=== PATIENT | female | born 1935 | race Caucasian/White ===

== ENCOUNTER 2021-01-23 12:44 | Inpatient (IN) | payer MEDICARE, OTHER, SELFPAY ==
[2021-01-23] VITALS (10 sets, daily range): BP systolic 126–156; BP diastolic 60–91; PULSE 84–102; RESP 18–29; TEMP 36.5–37; O2SAT 94–99; BMI 22.3
--- NOTE | ~2021-01-23 | XR_ITS ---
XR chest 1V portable 01/23/2021 13:44 Indication: Chest pain. Status post ground level fall. Procedure: AP portable chest Comparison: No prior studies for comparison. Findings: Status post median sternotomy for CABG. Borderline heart size. Mild interstitial edema. Sma ll pleural effusions, right greater than left. Impression: 1: Borderline heart size with mild interstitial edema. 2: Small pleural effusions, right greater than left. Reviewed, dictated and finalized at location A. Impression: 1: Borderline heart size with mild interstitial edema. 2: Small pleural effusions, right greater than left.
--- NOTE | ~2021-01-23 | NM_ITS ---
NM pulmonary perfusion DATE: 01/23/2021 19:47 INDICATION: Generalized chest pain TECHNIQUE: 8 standard projections were obtained after intravenous injection of 3.3 mCi 99m technetium MAA. The technologist notes that the patient was unable to raise the left arm of the way. COMPARISON: 01/23/2021 portable AP chest FINDINGS: There is displacement of activity by mild bilateral pleural effusions. No lobar or segmenta l perfusion abnormalities are detected. IMPRESSION: Low probability of pulmonary embolism Reviewed, dictated and finalized at Location A. Reviewed, dictated and finalized at location A.
--- NOTE | ~2021-01-23 | XR_ITS ---
XR ankle LT min 3V 01/23/2021 13:44 Indication: Left ankle pain and swelling Procedure: 4 views left ankle Comparison: No prior studies for comparison. Findings: No fracture or traumatic malalignment. There is mild diffuse soft tissue swelling. There is corticated ossific density at the medial malleolus. Talar dome is normal. Osteopenia. Impression: 1: No acute fracture. 2: Moderate diffuse soft tissue swelling. Reviewed, dictated and finalized at location A. Impression: 1: No acute fracture. 2: Moderate diffuse soft tissue swelling.
--- NOTE | ~2021-01-23 | XR_ITS ---
XR shoulder LT min 2V DATE: 01/23/2021 18:33 INDICATION: Left shoulder pain following a fall TECHNIQUE: 4 views COMPARISON: None FINDINGS: Diffuse osteopenia. There is severe joint space narrowing and hypertrophic spurring at the glenohumeral joint consistent with severe osteoarthritis. There is degenerative change at the left acromioclavicular joint including joint space narrowing. No fracture, dislocation, periosteal reaction or bone destruction is detected. Status post sternotomy. There is extensive thoracic aortic calcification. IMPRESSION: Osteopenia Severe osteoarthritic change at the left glenohumeral joint Degenerative change at the left acromioclavicular joint No fracture or dislocation Reviewed, dictated and finalized at location A.
--- NOTE | ~2021-01-23 | US_ITS ---
EXAMINATION: US venous doppler LE EXAM DATE: 01/25/2021 14:09 INDICATION: Bilateral leg edema. TECHNIQUE: Multiple grayscale, color flow and Doppler images of the lower extremity deep venous syste ms bilaterally were obtained and reviewed. There is no prior study for comparison. FINDINGS: Right side: The right common femoral, femoral and profunda veins demonstrate normal color flow, respi ratory variation, augmentation and compressibility. Compressibility, color flow confirmed within the right popliteal, posterior tibial, peroneal, and greater saphenous veins. Left side: The left common femoral, femoral and profunda veins demonstrate normal color flow, respira tory variation, augmentation and compressibility. Compressibility, color flow confirmed within the l eft popliteal, posterior tibial, peroneal, and greater saphenous veins. IMPRESSION: 1. No lower extremity deep venous thrombosis bilaterally. Reviewed, dictated and finalized at location B.
--- NOTE | ~2021-01-23 | XR_ITS ---
EXAMINATION: XR knee LT 3V EXAM DATE: 01/23/2021 16:01 INDICATION: Initial encounter following injury, with pain of the left knee. TECHNIQUE: Three projections of the left knee. There is no prior study for comparison. FINDINGS: No evidence osteochondral defect or joint body in the left knee joint. There are no acute fractures or dislocations identified. There is no subcutaneous gas. No joint effusion. There is mo derate scattered arteriosclerotic disease. Large amount of swelling anterior to the patella and the p atellar tendon. There is severe medial tibiofemoral compartment primary osteoarthritis. There are no radiopaque foreign bodies. IMPRESSION: 1. XR knee LT 3V exam without acute osseous findings. 2. Anterior soft tissue swelling. 3. Moderate to severe osteoarthritis. Reviewed, dictated and finalized at location B.
--- NOTE | ~2021-01-23 | CT_ITS ---
EXAMINATION: CT brain wo con, CT cervical spine wo con EXAM DATE: 01/23/2021 14:13 INDICATION: Fall, head injury. TECHNIQUE: Spiral CT of the head was performed without contrast. Axial, coronal and sagittal images were reviewed. Spiral CT of the cervical spine was performed without contrast. Axial images were rev iewed. Coronal and sagittal reformatted images were also reviewed. The dose-length product (DLP) fo r this examination was 605.33 (accession [id number]), 219.73 (accession [id number]) mGy-cm. The exposure was tailored according to patient size, and iterative reconstruction (ASIR) was used as additional dose reduction technique. There is no prior study for comparison. FINDINGS: HEAD CT: There is no acute intraparenchymal hemorrhage. No evidence of intraparenchymal brain mass l esion. No evidence of acute infarction. There is mild periventricular and subcortical hypodensity, n onspecific but probably related to small vessel ischemic disease. There is moderate prominence of t he sulci and ventricles related to cerebral atrophy. There is no mass effect or midline shift. The re is no obstructive hydrocephalus suspected. There are no extra-axial collections. There are no ac [place] calvarial fractures. Patient has had bilateral ocular lens surgery. Left frontal scalp swelling . Hyperostosis frontalis. The visualized sinuses and mastoid air cells are well aerated. CERVICAL CT: There is no evidence of acute cervical fracture. The odontoid process is intact. Pre- dens space is normal. Prevertebral soft tissue is normal. There are no soft tissue abnormalities id entified. There is no disc space widening or traumatic vertebral body subluxation suspected. Severe cervical spondylosis. Severe right carotid bulb arterial sclerosis. Bilateral pleural effusions, rig ht greater than left A detailed level by level evaluation of spondylosis can be added as addendum if requested. IMPRESSION: 1. No acute intracranial findings or cervical fracture. 2. Left frontal scalp swelling. 3. Advanced cervical spondylosis. 4. Senescent intracranial changes. 5. Severe right carotid arterial sclerosis. 6. Sizable right pleural effusion. Reviewed, dictated and finalized at location B. IMPRESSION: 1. No acute intracranial findings or cervical fracture. 2. Left frontal scalp swelling. 3. Advanced cervical spondylosis. 4. Senescent intracranial changes. 5. Severe right carotid arterial sclerosis. 6. Sizable right pleural effusion.
--- NOTE | ~2021-01-23 | US_ITS ---
EXAMINATION: US renal BI EXAM DATE: 01/24/2021 14:20 INDICATION: Renal insufficiency. TECHNIQUE: Multiple grayscale and Doppler images of the kidneys were obtained (by a technologist who performed the scan) and subsequently reviewed. There is no prior study for comparison. FINDINGS: Right kidney: There is normal contour and echogenicity. It measures 10.0 x 4.7 x 4.9 centimeters. Th ere are 2 renal cyst measuring about 2 cm. There is no hydronephrosis. Left kidney: There is normal contour and echogenicity. It measures 9.9 x 3.7 x 4.7 centimeters. The re are no focal renal lesions identified. There is no hydronephrosis. Bladder unremarkable. IMPRESSION: 1. Right renal cysts. 2. No hydronephrosis. Reviewed, dictated and finalized at location B.
--- NOTE | 2021-01-23 13:10 | ECG_ITS ---
Measurements Intervals [place] Rate: 86 P: [place]: 0 QRS: -15 QRSD: 89 T: 116 QT: 329 QTc: 395 Interpretive Statements ATRIAL FIBRILLATION VOLTAGE CRITERIA FOR LVH BORDERLINE R WAVE PROGRESSION, ANTERIOR LEADS BORDERLINE T WAVE ABNORMALITY- HIGH LATERAL LEADS BASELINE ARTIFACT- I, II, III, AVR, AVL ABNORMAL ECG Electronically Signed On 01-23-2021 14:57:45 CDT by Simon Clarke D.O.
[2021-01-23 13:27] LABS: Basophils Absolute Auto 0.1 K/mm3 (0.0-0.1); Basophils Percent Auto 0.4 % (0.2-1.2); Eosinophils Absolute Auto 0.1 K/mm3 (0-0.3); Eosinophils Percent Auto 0.5 % (0-4.4); Hematocrit 38.1 % (37.0-47.0); Hemoglobin 11.6 g/dL (12.0-15.0); Immature Granulocyte Absolute 0.13 K/mm3 (0.00-0.031); Immature Granulocyte Percent A 0.9 % (0-0.5); Lymphocytes Absolute Auto 0.48 K/mm3 (0.9-3.2); Lymphocytes Percent Auto 3.2 % (18.3-44.2); Mean Corpuscular HGB Conc 30.4 g/dl (32-36); Mean Corpuscular Hemoglobin 26.9 pg (26-34); Mean Corpuscular Volume 88.4 fl (80-100); Mean Platelet Volume 10.3 fl (7.4-10.4); Monocytes Absolute Auto 0.7 K/mm3 (0.1-0.6); Monocytes Percent Auto 4.6 % (2.6-8.5); Neutrophils Absolute Auto 13.6 K/mm3 (1.3-6.7); Neutrophils Percent Auto 90.4 % (45.5-73.1); Platelet Count Result 320 k/mm3 (150-375); Red Blood Count 4.31 M/mm3 (4.2-5.4); Red Cell Distribution Width 14.2 % (11.5-14.5); White Blood Count 15.1 K/mm3 (4.5-10.0)
[2021-01-23 13:35] LABS: Platelet Estimate Adequate (Adequate)
[2021-01-23 13:36] LABS: Anion Gap 6 mmol/L (8-16); Blood Urea Nitrogen 22 mg/dL (7-17); Calcium 8.5 mg/dL (8.4-10.2); Carbon Dioxide 24 mmol/L (22-30); Chloride 106 mmol/L (98-107); Estimated CRCL calculation 18 ml/min; Estimated Glomerular Filt Rate 27; Glucose 117 mg/dL (65-105); INR 1.2; Potassium 4.8 mmol/L (3.4-5.0); Prothrombin Time 15.9 Seconds (11.1-14.7); Sodium 136 mmol/L (137-145)
[2021-01-23 13:37] LABS: Burr Cells 1+ (NORMAL); Partial Thromboplastin Time 22.8 SECONDS (22.3-36.8); Poikilocytosis 1+ (NORMAL)
[2021-01-23] MEDS: SODIUM CHLORIDE 0.9% IV 500 ML 999 ML IV CONT (14:28)
--- NOTE | 2021-01-23 14:28 | PC.NURSE ---
Unable to pull 500mL normal saline from Pyxis due to Pyxis error. 1000mL bag pulled. Fluids placed on pump for total of 500mL infusion.
[2021-01-23 17:01] LABS: Add Urine Microscopic? YES; Appearance Urine Clear (Clear); Bilirubin Urine Negative (Negative); Blood Urine 2+ (Negative); Color Urine Yellow (Yellow); Glucose Urine UA Negative (Negative); Ketones Urine Negative (Negative); Leukocyte Esterase Ur Negative LEU/UL (Negative); Nitrate Urine Negative (Negative); Protein Urine 2+ mg/dL (Negative); Squamous Epithelial Cell Urine Rare /hpf (Few); Urobilinogen Urine Negative mg/dL (<2.0); WBC Urine 0-3 /hpf
--- NOTE | 2021-01-23 17:01 | ED.GENADULT ---
HPI - General Adult General Chief complaint: Fall Stated complaint: fall - head lac Time Seen by Provider: 01/23/21 12:53 Source: patient, family and RN notes reviewed Mode of arrival: ambulatory Limitations: altered mental status and clinical condition History of Present Illness HPI narrative: Patient is a 85-year-old female who presents after injuries related to falling at home patient lives at home by herself and reportedly had a fall contacted family to inform them and was brought into the emergency department by her granddaughter on arrival patient is confused to the date and location but knows that she is at the hospital for a fall and is oriented to self patient has contusion to the forehead and abrasion to the under chin patient also has swelling to the left knee patient notes pain to the contusion and lujan as well as the left ankle patient notes chronic lower extremity swelling patient is unsure as to syncope loss of consciousness and is a limited historian on arrival Related Data Home Medications Medication Instructions Recorded Confirmed atorvastatin PO 01/23/21 clopidogrel PO 01/23/21 ezetimibe mg PO 01/23/21 hydrochlorothiazide PO 01/23/21 loratadine mg PO 01/23/21 Allergies Allergy/AdvReac Type Severity Reaction Status Date / Time No Known Allergies Allergy Verified 01/23/21 13:08 Review of Systems Review of Systems: Narrative: Review of system is limited to clinical condition ROS unobtainable: Yes unobtainable due to medical condition PMFSH Past Medical History Medical History (Updated 01/23/21 @ 18:20 by Bartolo Owen PA-C) Carotid artery disease Hyperlipidemia Hypertension Social History Social History (Updated 01/23/21 @ 17:02 by Bartolo Owen PA-C) Smoking status: Never smoker Exam Narrative: Exam Narrative: GENERAL: Ill-appearing, well-nourished, and in no acute distress. HEAD: Normocephalic, hematoma with laceration to the left forehead, laceration to the under chin EYES: PERRLA and EOMI. ENT: Nares clear, no rhinorrhea or epistaxis. Mucous membranes moist. NECK: Supple. No adenopathy or masses. CHEST: Clear to auscultation. No respiratory distress. No wheezes rales or rhonchi HEART: Irregularly irregular rate and rhythm. No murmur heard. Normal peripheral pulses. ABDOMEN: Soft, nontender, nondistended EXTREMITIES: Bruising swelling and tenderness of the left knee joint. 2+ edema lower extremities with pink discoloration from the feet up to the mid shins. Tenderness of the left ankle joint. No midline cervical thoracic or lumbar tenderness SKIN: Warm, dry, no rash. Abrasion/skin tear of the left forearm. Skin tear left hand NEURO: No focal deficits. Alert and oriented to self and reason for being in the emergency department. Cranial nerves II through XII grossly intact. Normal speech. Neurovascularly intact PSYCH: Normal mood and affect. Course Course Emergency Course: Patient will be placed in hospital secondary to fall to be evaluated by the hospitalist service for further evaluation of her elevated white count and etiology of her fall and secondary to her confusion. The leukocytosis could be secondary to stress no obvious cause at this time for. Patient had other blood work performed without high risk changes. Patient had skeletal imaging not to reveal any fractures. Patient will be hydrated and brought in hospital placed on telemetry floor patient and family agree with this treatment plan discussed. Patient's healthcare through his son who notes she has carotid artery disease Consultations Consultation #1: Spoke with the hospitalist Mayela regarding this patient has agreed to accept her Date: 01/23/21 Time: 17:14 Consultation #2: Discussed case with Mayela a second time to update on findings and patient will be placed in the IMU Vital Signs Vital signs: Vital Signs Temperature 97.7 F 01/23/21 12:47 Pulse Rate 84 01/23/21 12:47 Blood Pressure 144/60
[2021-01-23 17:53] LABS: NT Pro B Type Natriuretic Pept 29900 pg/mL (5-100)
[2021-01-23] MEDS: ALBUTEROL SULFATE NEB 2.5 MG/0.5 ML INH 5 MG INHALATION (18:08)
[2021-01-23 18:14] LABS: Alveolar/Arterial O2 Gradient 42.8 mmHg; Base Excess ABG -2.9 mEq/l (+/-2.0); Carboxyhemoglobin 0.8 % THb (0-2.0); Fractional Inspired Oxygen 21 %; HCO3 ABG 19.9 mEq/l (22.0-26.0); Methemoglobin ABG 0.1 %THb (0-1.5); Oxygen Content ABG 15.1 %vol (16.0-22.0); Oxygen Saturation ABG 95.6 % (95.0-100.0); PCO2 ABG 28.6 mmHg (35.0-45.0); PO2 ABG 72.7 mmHg (80.0-100.0); PO2 FiO2 Ratio Arterial Blood 3.46 %; Reduced Hemoglobin 5.1 %THb (0-5.0); Total Hemoglobin 11.4 g/dL (12.0-18.0); pH ABG 7.461 (7.350-7.450)
[2021-01-23 18:15] LABS: Site Drawn LEFT RADIAL
[2021-01-23 18:16] LABS: Device ROOM AIR; Modified Allen's Test Pass
[2021-01-23 18:26] LABS: Troponin I 0.124 ng/mL (0.000-0.034)
[2021-01-23] MEDS: FUROSEMIDE INJ 40 MG/4 ML VIAL 20 MG IV PUSH (18:39)
[2021-01-23 18:43] LABS: Cholesterol 103 mg/dL (0-200); HDL Direct 42 mg/dL; Triglycerides 68 mg/dL (<150)
[2021-01-23 18:54] LABS: LDL Cholesterol Direct 45 mg/dL
--- NOTE | 2021-01-23 21:42 | ADMGEN ---
This patient, Yessenia Vega, was admitted to IMU Room 2124. Patient/family oriented to hospital policies and general routines including ID bracelet, bed and alarms, visiting hours, pain management, procedures, bathroom and other care routines, personal items, smoking policy, room service/diet, and visiting hours. Information on how to activate the Rapid Response Team has been discussed. Patient/Family are encouraged to report perceived risks to care and to ask questions if they do not understand what they are told or what they should do.
[2021-01-23 22:32] LABS: Troponin I 0.171 ng/mL (0.000-0.034)
[2021-01-23] MEDS: FAMOTIDINE 20 MG/2 ML VIAL IV PUSH (23:35)
[2021-01-24] VITALS (17 sets, daily range): BP systolic 103–148; BP diastolic 66–110; PULSE 81–103; RESP 16–26; TEMP 36.2–36.8; O2SAT 92–100
--- NOTE | 2021-01-24 00:40 | PC.NURSE ---
called alayna iglesias about fawad andrea on patient. she stated to wait for dr mosqueda to evaluate then she will decide.
[2021-01-24 01:43] LABS: Troponin I 0.164 ng/mL (0.000-0.034)
--- NOTE | 2021-01-24 02:27 | PM.IMHP ---
H&P: HPI History of Present Illness Date/Time: 01/24/21 02:27 Chief Complaint: Fall Narrative: 85-year-old female with past medical history of hyperlipidemia, hypertension, and carotid stenosis who presented to the ER after having a fall with head injury. Source of information is ER records and patient report. The patient herself is a poor historian. She states that her memory has been slipping for quite some time. The patient reports that she had tripped on the edge of a bar stool and fell. She contacted her family members who brought her to the emergency room. The patient was disoriented as to the date, location and name of the current president. She did note that she was at the hospital and is oriented to self. The family reports that patient seems more confused than baseline. The patient does not think that she had a syncopal event but again is for the most part unreliable. She was noted to have significant bilateral lower extremity swelling with pitting up to her thighs. It is unclear if this edema is acute on chronic or not. Patient does admit to feeling short of breath for the last 6 months. She has not had any cough. She does not have a known history of AFib was noted to be in AFib in the ER. She denies any chest pain. She is not on blood thinners at home but is on anti-platelet therapy with Plavix. She reports chronic urge in stress incontinence. She wears pads at home. She denies any dysuria or hematuria. She reports having normal bowel movements. She reports severe pain of her left knee with movement and palpation. The patient has chronic gait instability. She has a walker and a wheelchair at home but it sounds as if she ambulates around the house using furniture to hold onto. Review of Systems Review of Systems: Narrative: 12 systems were reviewed with pertinent positives and negatives per HPI. Except as documented in the HPI, all other systems were reviewed and are negative. [facility] Past Medical History Medical History (Updated 01/24/21 @ 09:01 by Aisha Toth DO) Carotid artery disease Carotid artery sclerosis Hyperlipidemia Hypertension Surgical History Surgical History (Updated 01/24/21 @ 02:32 by Aisha Toth DO) No significant past surgical history Family History Family History Mother Alzheimer disease Diabetes mellitus Heart disease Father Stomach ulcer Social History Social History (Updated 01/24/21 @ 09:07 by Aisha Toth DO) Social History: The patient reports that she lives alone. She states that she has been for 30 years. She states she has been twice in her life. She has 2 children. 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 She has a walker and wheelchair at home but it sounds as if she ambulates around the house most the time by grabbing onto furniture. Code status: DNR Surrogate decision maker: Charlotte (daughter) Smoking status: Former smoker Additional smoking assessment comments: as a teenager Alcohol intake: never Substance use: never Gender identity (if verbalized by the patient): Female Spiritual care concerns: No Meds Home Medications and Allergies Home Medications Medication Instructions Recorded Confirmed Type atorvastatin 80 mg PO DAILY 01/23/21 01/23/21 History clopidogrel 75 mg PO DAILY 01/23/21 01/23/21 History ezetimibe 10 mg PO DAILY 01/23/21 01/23/21 History hydrochlorothiazide 12.5 mg PO DAILY 01/23/21 01/23/21 History loratadine 10 mg PO DAILY 01/23/21 01/23/21 History Allergies Allergy/AdvReac Type Severity Reaction Status Date / Time No Known Allergies Allergy Verified 01/23/21 13:08 Vital Signs Vital Signs - 24 hr 01/23/21 12:47 01/23/21 13:02 01/23/21 14:31 Temperature 97.7 F 97.7 F Pulse Rate 84 84 97 Respiratory Rate 18 18 Blood Pressure 144/60 H 144/60 H Pulse Oximetry 97 97 95 01/23/21 15:49 01/23/21 17:20 06
--- NOTE | 2021-01-24 06:00 | ECHO_ITS ---
Patient Info Name: Yessneia Vega Age: 85 years : 1935 Gender: Female Ht: 64 in Wt: 129 lbs BSA: 1.63 m2 HR: 80 bpm Technical Quality: Good Exam Date: 01/24/2021 8:10 AM Exam Location: [facility] Patient Status: Outpatient Admit Date: 01/24/2021 Staff Ordering Physician: Bartolo Owen PA-C Fashion Marketer: Felipe Echevarria RDCS, RT Attending Provider: Colton Mack MD Referring Physician: Brayden CLARK; Exam Type: CA echo doppler color flow Study Info Indications I48.1 - Persistent atrial fibrillation Complete two-dimensional, color flow and Doppler transthoracic echocardiogram is performed. Strain analysis performed. Summary 1. Complete two-dimensional, color flow and Doppler transthoracic echocardiogram is performed. 2. Left ventricular chamber dimension is mildly enlarged. 3. Left ventricular systolic function is normal, estimated at 30-35%. 4. There is moderately increased left ventricular wall thickness. 5. The left ventricular diastolic function is abnormal. 6. Right ventricular chamber dimension is mildly enlarged. 7. Right ventricular systolic function is reduced. 8. Left atrial chamber dimension is mildly enlarged. 9. There is moderate aortic valve sclerosis. 10. There is severe mitral valve regurgitation. 11. There is moderate tricuspid valve regurgitation. 12. Moderate pulmonary hypertension, estimated pulmonary arterial systolic pressure is 51 mmHg. Left Ventricle Left ventricular chamber dimension is mildly enlarged. Left ventricular systolic function is normal, estimated at 30-35%. There is moderately increased left ventricular wall thickness. The left ventricular diastolic function is abnormal. Global longitudinal strain is abnormal at -6 %. Right Ventricle Right ventricular chamber dimension is mildly enlarged. Right ventricular systolic function is reduced. Left Atria Left atrial chamber dimension is mildly enlarged. Right Atria Right atrial chamber dimension is normal. Atrial Septum Intact interatrial septum visualized by color flow imaging. Aortic Valve The aortic valve is trileaflet. There is moderate aortic valve sclerosis. There is no aortic valve stenosis. There is no aortic valve regurgitation. Pulmonic Valve The pulmonic valve is normal. There is no pulmonic valve stenosis. There is no pulmonic regurgitation. Mitral Valve The mitral valve has thickened leaflets. There is no mitral valve stenosis. There is severe mitral valve regurgitation. Tricuspid Valve The tricuspid valve leaflets are normal. There is no significant tricuspid valve stenosis. There is moderate tricuspid valve regurgitation. Moderate pulmonary hypertension, estimated pulmonary arterial systolic pressure is 51 mmHg. Pericardium/Pleural The pericardium appears normal. There is no pericardial effusion. Inferior Vena Cava Normal inferior vena cava with <50% collapse upon inspiration consistent with Empty right atrial pressure, 10 mmHg. Aorta The aortic root size at the sinus of Valsalva is normal. The prox ascending aorta size is normal. Left Ventricular Outflow Tract Name Value Normal LVOT 2D LVOT Diameter 1.9 cm
[2021-01-24 06:25] LABS: Hematocrit 30.8 % (37.0-47.0); Hemoglobin 9.5 g/dL (12.0-15.0); Mean Corpuscular HGB Conc 30.8 g/dl (32-36); Mean Corpuscular Hemoglobin 27.1 pg (26-34); Mean Corpuscular Volume 87.7 fl (80-100); Mean Platelet Volume 10.6 fl (7.4-10.4); Platelet Count Result 272 k/mm3 (150-375); Red Blood Count 3.51 M/mm3 (4.2-5.4); Red Cell Distribution Width 14.4 % (11.5-14.5); White Blood Count 8.5 K/mm3 (4.5-10.0)
[2021-01-24 06:34] LABS: Anion Gap 5 mmol/L (8-16); Blood Urea Nitrogen 21 mg/dL (7-17); Calcium 8.2 mg/dL (8.4-10.2); Carbon Dioxide 24 mmol/L (22-30); Chloride 107 mmol/L (98-107); Estimated CRCL calculation 19 ml/min; Estimated Glomerular Filt Rate 28; Glucose 113 mg/dL (65-105); Potassium 4.5 mmol/L (3.4-5.0); Sodium 136 mmol/L (137-145)
[2021-01-24] MEDS: ATORVASTATIN 40 MG TABLET 80 MG PO (09:02)
[2021-01-24] MEDS: EZETIMIBE 10 MG TABLET PO (09:02)
[2021-01-24] MEDS: METOPROLOL TARTRATE 12.5 MG TABLET PO ×2 (09:02→20:10)
[2021-01-24] MEDS: LORATADINE 10 MG TABLET PO (09:02)
--- NOTE | 2021-01-24 11:30 | PM.IMPN ---
Progress Note: A&P Assessment and Plan (1) Atrial fib/flutter, transient: Status: Acute Assessment and Plan: The patient has rate controlled AFib noted on EKG. She does not have a known history of AFib in past. Exact chronicity of AFib is unclear. VQ scan is low probability. HCTZ stopped and metoprolol added. The patient is a poor candidate for chronic anticoagulation given her advanced age and fall risk. Check TSH (2) CHF (congestive heart failure): Code(s): I50.9 - Heart failure, unspecified Status: Acute Assessment and Plan: Acute systolic and diastolic CHF exacerbation. On imaging the patient has ?significant pleural effusion? noted on CT of the head neck. CXR however showing borderline heart size with mild interstitial edema and small pleural effusions, right greater than left. Likely due to previously unrecognized CHF. The patient received Lasix in the ER. Echo results showing EF 30-35%, abnormal diastolic function, severe mitral valve regurgitation, moderate tricuspid valve regurgitation and moderate pulmonary hypertension with estimated pulmonary arterial systolic pressure is 51 mmHg. Continue metoprolol. Add Lisinopril. Monitor Cr closely with JB. Cardiology consult for the severe MR and AFib. (3) Pleural effusion: Code(s): J90 - Pleural effusion, not elsewhere classified Status: Acute Assessment and Plan: As above. (4) Renal failure: Qualifiers: Renal failure chronicity: unspecified chronicity Qualified Code(s): N19 - Unspecified kidney failure Code(s): N19 - Unspecified kidney failure Status: Acute Assessment and Plan: The patient has some renal failure noted on labs with Cr at 1.8. Unclear on baseline but probably has underlying chronic kidney disease. Repeat Cr 1.7 today. Tolerated Lasix. Continue to monitor UOP. Check renal US. (5) Elevated troponin: Code(s): R77.8 - Other specified abnormalities of plasma proteins Status: Acute Assessment and Plan: Patient has a troponin elevation on admission to 0.171 likely due to CHF exacerbation and atrial fibrillation. Troponin is trending down now and was relatively flat overall. Will continue monitor on telemetry. Echo as above. (6) Confusion: Code(s): R41.0 - Disorientation, unspecified Status: Acute Assessment and Plan: The patient presented to the ER after a fall. Sounds if the patient's fall may have been due to trip and fall. However the patient is poor historian. The patient reports she has had progressive decline and a memory and suspect she has underlying dementia. Contineu fall precautions. Will avoid sedating medications to help prevent worsening of her confusion. Monitor for now. Check B12/TSH. (7) Anemia: Code(s): D64.9 - Anemia, unspecified Status: Acute Assessment and Plan: Hgb 11.6 on admission but dropped to 9.5 felt related to diffuse eccyhmosis. Monitor for now. (8) Traumatic hematoma of left knee: Code(s): S80.02XA - Contusion of left knee, initial encounter Status: Acute Assessment and Plan: Given the patient's marked edema of lower extremities, venous Dopplers ordered. Continue diuresis. Continue curent wound care to the multiple wounds. PT/OT. (9) Chin laceration: Qualifiers: Encounter type: initial encounter Qualified Code(s): S01.81XA - Laceration without foreign body of other part of head, initial encounter Code(s): S01.81XA - Laceration without foreign body of other part of head, initial encounter Status: Acute Assessment and Plan: As above. (10) Forehead laceration: Qualifiers: Encounter type: initial encounter Qualified Code(s): S01.81XA - Laceration without foreign body of other part of head, initial encounter Code(s): S01.81XA - Laceration without foreign body of other part
--- NOTE | 2021-01-24 14:17 | PM.CNCAR ---
Assessment and Plan Assessment and plan (1) CHF (congestive heart failure): Code(s): I50.9 - Heart failure, unspecified Status: Acute Assessment and Plan: Systolic heart failure with EF 30-35%. Given her DNR status and dementia will treat her conservatively, and she and family agreeable to not obtain Life Vest or ICD. (2) Elevated troponin: Code(s): R77.8 - Other specified abnormalities of plasma proteins Status: Acute Assessment and Plan: Mild and peaked. Likely related to CHF and not ACS as no symptomatology to suggest it. (3) PAF (paroxysmal atrial fibrillation): Code(s): I48.0 - Paroxysmal atrial fibrillation Status: Acute Assessment and Plan: [id number] 5. Rate control with Metoprolol. Given her risk of falls, would treat her with home Clopidogrel and not anticoagulation. Discussed with her and family that she is at risk of cardioembolism without true anticoagulation. (4) CAD (coronary artery disease), autologous vein bypass graft: Code(s): I25.810 - Atherosclerosis of coronary artery bypass graft(s) without angina pectoris Status: Acute (5) Mitral regurgitation: Code(s): I34.0 - Nonrheumatic mitral (valve) insufficiency Status: Acute Assessment and Plan: Continue with diuresis. (6) Carotid stenosis, right: Code(s): I65.21 - Occlusion and stenosis of right carotid artery Status: Acute Assessment and Plan: She is scheduled to have procedure to treat it with her regular turn machine operator with [facility] in [place]. (7) Hypertension: Code(s): I10 - Essential (primary) hypertension Status: Inactive Assessment and Plan: Stable. History of Present Illness History of Present Illness Consult date/time: 01/24/21 14:17 Reason for consult: Atrial fib, CHF. 85 yr old woman was admitted yesterday after a fall. She has a history of mild dementia, CAD/CABG about 5 years ago in [place], right carotid stenosis and plans for invasive treatment in February 2021. Her grand-daughter is presents. Her regular turn machine operator is with [facility] but they could not recall his name. Reports that she was in her wheelchair when she hit up against a bar stool and it flung into the wall and came back and struck her and she fell forward out of the wheelchair and hit the cement floor bruing her head, chin and left thigh. Denies chest pain or sob. She has been wheelchair bound for last 2 months due to weakness, but she can walk with a walker from one room to the next. She noted getting sob and more swelling of legs in recent weeks. She falls about 5-10 times in last 12 months. Denies orthopnea, PND, palpitations. In ED it was found she has CHF with pleural effusions and new onset atrial fibrillation. An echo was done showing EF 30-35%, severe MR. She is being diuresed with Lasix IV 20 mg BID and rate controlled with metoprolol. Reason For Visit: Atrial Fib/Flutter,Head Injury,Multiple Contusions Review of Systems Constitutional: Constitutional: Reports as per HPI, Denies chills, Reports fatigue and Denies fever(s) Cardiovascular: Cardiovascular: Reports as per HPI, Denies chest pain, Reports leg edema and Denies lightheadedness Respiratory: Respiratory: Reports as per HPI, Denies dyspnea and Reports dyspnea on exertion Gastrointestinal: Gastrointestinal: Reports as per HPI and Denies abdominal pain Genitourinary: Genitourinary: Denies dysuria Neurologic: Reports as per HPI, Denies dizziness and Denies syncope [facility] Past Medical History Medical History (Updated 01/24/21 @ 14:29 by Simon Clarke DO) Carotid artery disease Carotid artery sclerosis Hyperlipidemia Hypertension Surgical History Surgical History (Updated 01/24/21 @ 02:32 by Aisha Toth DO) No significant past surgical history Family History Family History Hai
[2021-01-24] MEDS: lisinopriL 5 MG TABLET PO (16:44)
[2021-01-25] VITALS (16 sets, daily range): BP systolic 96–186; BP diastolic 64–87; PULSE 70–138; RESP 16–20; TEMP 36–36.7; O2SAT 92–99
[2021-01-25 07:01] LABS: Basophils Absolute Auto 0.1 K/mm3 (0.0-0.1); Basophils Percent Auto 0.5 % (0.2-1.2); Eosinophils Percent Auto 0.1 % (0-4.4); Hematocrit 29.4 % (37.0-47.0); Hemoglobin 9.1 g/dL (12.0-15.0); Immature Granulocyte Absolute 0.07 K/mm3 (0.00-0.031); Immature Granulocyte Percent A 0.7 % (0-0.5); Lymphocytes Absolute Auto 0.53 K/mm3 (0.9-3.2); Lymphocytes Percent Auto 5.5 % (18.3-44.2); Mean Corpuscular Hemoglobin 27.2 pg (26-34); Mean Platelet Volume 10.8 fl (7.4-10.4); Monocytes Absolute Auto 0.6 K/mm3 (0.1-0.6); Neutrophils Absolute Auto 8.5 K/mm3 (1.3-6.7); Neutrophils Percent Auto 87.2 % (45.5-73.1); Platelet Count Result 281 k/mm3 (150-375); Red Blood Count 3.34 M/mm3 (4.2-5.4); Red Cell Distribution Width 14.4 % (11.5-14.5); White Blood Count 9.7 K/mm3 (4.5-10.0)
[2021-01-25 07:14] LABS: Alanine Aminotransferase 23 U/L (4-35); Alkaline Phosphatase 80 U/L (38-126); Anion Gap 6 mmol/L (8-16); Aspartate Amino Transferase 29 U/L (14-36); Bilirubin,Total 0.5 mg/dL (0.2-1.3); Blood Urea Nitrogen 22 mg/dL (7-17); Calcium 8.4 mg/dL (8.4-10.2); Carbon Dioxide 25 mmol/L (22-30); Chloride 104 mmol/L (98-107); Estimated CRCL calculation 20 ml/min; Estimated Glomerular Filt Rate 31; Glucose 128 mg/dL (65-105); Magnesium 1.7 mg/dL (1.6-2.3); Phosphorus 3.9 mg/dL (2.5-4.5); Potassium 4.6 mmol/L (3.4-5.0); Sodium 135 mmol/L (137-145)
[2021-01-25 07:39] LABS: Iron 15 ug/dL (37-170)
[2021-01-25 07:48] LABS: Percent Iron Saturation 5 % (20-50)
[2021-01-25 08:11] LABS: Folic Acid 4.7 ng/mL (2.76->20)
--- NOTE | 2021-01-25 08:14 | PM.PNCARD ---
Progress Note: A&P Assessment and Plan (1) CHF (congestive heart failure): Code(s): I50.9 - Heart failure, unspecified Status: Acute Assessment and Plan: Systolic heart failure with EF 30-35%. Given her DNR status and dementia will treat her conservatively, and she and family agreeable to not obtain Life Vest or ICD. She is on Metoprolol and Lisinopril. She probably needs low dose diuretics such as Lasix 20 mg PO daily to keep euvolemia and adust as needed. (2) Elevated troponin: Code(s): R77.8 - Other specified abnormalities of plasma proteins Status: Acute Assessment and Plan: Mild and peaked. Likely related to CHF and not ACS as no symptomatology to suggest it. (3) PAF (paroxysmal atrial fibrillation): Code(s): I48.0 - Paroxysmal atrial fibrillation Status: Acute Assessment and Plan: [id number] 5. Rate control with Metoprolol. Given her risk of falls, would treat her with home Clopidogrel and not anticoagulation. Discussed with her and family that she is at risk of cardioembolism without true anticoagulation. (4) CAD (coronary artery disease), autologous vein bypass graft: Code(s): I25.810 - Atherosclerosis of coronary artery bypass graft(s) without angina pectoris Status: Acute (5) Mitral regurgitation: Code(s): I34.0 - Nonrheumatic mitral (valve) insufficiency Status: Acute Assessment and Plan: Continue with diuresis. (6) Carotid stenosis, right: Code(s): I65.21 - Occlusion and stenosis of right carotid artery Status: Acute Assessment and Plan: She is scheduled to have procedure to treat it with her regular demand planning analyst with [facility] in [place] in February 2021. (7) Hypertension: Code(s): I10 - Essential (primary) hypertension Status: Inactive Assessment and Plan: Stable. Subjective Date/time seen: 01/25/21 08:14 Denies chest pain or sob. But, she is confused this morning. Exam Const: General: cooperative, healthy appearing and comfortable HENMT: Other: Bruising to her forehead and chin. Resp: Auscultation: no crackles, no rales, no rhonchi, no wheezes and diminished lung sounds Cardio: Jugular venous distension: no JVD Rate: regular rate Rhythm: abnormal rhythm Heart sounds: no murmurs GI: GI Palp: No abdominal tenderness and Yes Soft to palpation Neuro: General: oriented to person, oriented to place and oriented to time Extrem: Right lower extremity: edema Left lower extremity: edema Other: Mod left leg and mild right leg edema. Objective Data Vital Signs Vital Signs: Vital Signs - 24 hr 01/24/21 09:02 01/24/21 09:28 01/24/21 10:00 Temperature Pulse Rate 86 101 H Respiratory Rate Blood Pressure Pulse Oximetry 94 01/24/21 12:00 01/24/21 14:00 01/24/21 16:00 Temperature 98.2 F 97.8 F Pulse Rate 94 81 93 Respiratory Rate 16 18 Blood Pressure 138/95 H 142/82 H Pulse Oximetry 92 95 01/24/21 18:00 01/24/21 20:00 01/24/21 20:10 Temperature 97.9 F Pulse Rate 102 H 93 87 Respiratory Rate 16 Blood Pressure 148/66 H Pulse Oximetry 95 01/24/21 21:48 01/24/21 22:00 01/24/21 23:53 Temperature 97.2 F L Pulse Rate 85 92 Respiratory Rate 16 Blood Pressure 120/77 Pulse Oximetry 99 99 01/25/21 00:00 01/25/21 02:00 01/25/21 04:00 Temperature 97.7 F Pulse Rate 81 88 78 Respiratory Rate 16 16 Blood Pressure 137/77 Pulse Oximetry 99 92 01/25/21 06:00 Temperature Pulse Rate 71 Respiratory Rate Blood Pressure Pulse Oximetry Intake/Output Intake/Output: Intake & Output 01/22/21 01/23/21 01/24/21 01/25/21 23:59 23:59 23:59 23:59 Intake Total 500 1100 160 Output Total 250 1450 Balance 250 -350 160 Meds/Results Medications: Active Medications Generic Name Dose Route Start Last Admin Trade Name Freq PRN Reason Stop Dose Admin Acetaminophen 650 mg 01/24/21 02:25 Acetami
[2021-01-25] MEDS: EZETIMIBE 10 MG TABLET PO (08:58)
[2021-01-25] MEDS: METOPROLOL TARTRATE 12.5 MG TABLET PO ×2 (08:58→22:20)
[2021-01-25] MEDS: FUROSEMIDE 20 MG TABLET PO (08:58)
[2021-01-25] MEDS: LORATADINE 10 MG TABLET PO (08:59)
[2021-01-25] MEDS: lisinopriL 5 MG TABLET PO (08:59)
[2021-01-25] MEDS: ATORVASTATIN 40 MG TABLET 80 MG PO (08:59)
[2021-01-25] MEDS: CLOPIDOGREL BISULFATE 75 MG TABLET PO (08:59)
--- NOTE | 2021-01-25 13:56 | PM.IMPN ---
Progress Note: A&P Assessment and Plan (1) Atrial fib/flutter, transient: Status: Acute Assessment and Plan: The patient has rate controlled AFib noted on EKG. She does not have a known history of AFib in past. Exact chronicity of AFib is unclear. VQ scan is low probability. Probably related to the MR. HCTZ stopped and metoprolol added. The patient is a poor candidate for chronic anticoagulation given her advanced age and fall risk. TSH normal. Monitor HR on tele. (2) CHF (congestive heart failure): Code(s): I50.9 - Heart failure, unspecified Status: Acute Assessment and Plan: Acute systolic and diastolic CHF exacerbation. On imaging the patient has ?significant pleural effusion? noted on CT of the head neck. CXR however showing borderline heart size with mild interstitial edema and small pleural effusions, right greater than left. Likely due to previously unrecognized CHF. The patient received Lasix in the ER. Echo results showing EF 30-35%, abnormal diastolic function, severe mitral valve regurgitation, moderate tricuspid valve regurgitation and moderate pulmonary hypertension with estimated pulmonary arterial systolic pressure is 51 mmHg. Continue metoprolol and Lisinopril. Monitor Cr closely with JB. Resume Lasix IV for one more day to improve fluid status. Appreciate Cardiology input. (3) Mitral regurgitation: Code(s): I34.0 - Nonrheumatic mitral (valve) insufficiency Status: Acute Assessment and Plan: Echo results showing EF 30-35% and severe mitral valve regurgitation. As above (4) Carotid stenosis, right: Code(s): I65.21 - Occlusion and stenosis of right carotid artery Status: Acute Assessment and Plan: CT scan showing severe right carotid arterial sclerosis. This is known and patient will be following up for evaluation for possible surgery. (5) Pleural effusion: Code(s): J90 - Pleural effusion, not elsewhere classified Status: Acute Assessment and Plan: As above. (6) Renal failure: Qualifiers: Renal failure chronicity: unspecified chronicity Qualified Code(s): N19 - Unspecified kidney failure Code(s): N19 - Unspecified kidney failure Status: Acute Assessment and Plan: The patient has some renal failure noted on labs with Cr at 1.8. Unclear on baseline but probably has underlying chronic kidney disease. Renal US showing no acute problems. Repeat Cr 1.6 today. Monitor (7) Elevated troponin: Code(s): R77.8 - Other specified abnormalities of plasma proteins Status: Acute Assessment and Plan: Patient has a troponin elevation on admission to 0.171 likely due to CHF exacerbation and atrial fibrillation. Troponin is trending down now and was relatively flat overall. Will continue monitor on telemetry. Echo as above. (8) Confusion: Code(s): R41.0 - Disorientation, unspecified Status: Acute Assessment and Plan: The patient presented to the ER after a fall. Sounds if the patient's fall may have been due to trip and fall. However the patient is poor historian. CT brain and Cervical Spine CT showing no acute findings. The patient has had progressive decline in memory and suspect she has underlying dementia. She probably also has developed closed head injury and was concussed contributing to the confusion. More oriented today. Continue fall precautions. B12 level at 241 so will replace. Will avoid sedating medications to help prevent worsening of her confusion. Monitor for now. Hopefully she will continue to improve. (9) Anemia: Code(s): D64.9 - Anemia, unspecified Status: Acute Assessment and Plan: Hgb 11.6 on admission but dropped to 9 range felt related to diffuse ecchymosis. Hgb stabilizing. B12 241 so will replace. Iron studies consistent with iron deficiency anemia. Add iron replacement. Continue to
[2021-01-25] MEDS: FERROUS SULFATE 324 MG TABLET PO (16:45)
[2021-01-25] MEDS: CYANOCOBALAMIN INJ 1,000 MCG/ML VIAL 1000 MCG IM (16:45)
[2021-01-25] MEDS: FUROSEMIDE INJ 40 MG/4 ML VIAL 20 MG IV PUSH (16:49)
[2021-01-26] VITALS (15 sets, daily range): BP systolic 114–154; BP diastolic 73–98; PULSE 63–90; RESP 12–18; TEMP 36.2–36.6; O2SAT 97–99
[2021-01-26 05:26] LABS: Hematocrit 29.1 % (37.0-47.0); Hemoglobin 9.2 g/dL (12.0-15.0); Mean Corpuscular HGB Conc 31.6 g/dl (32-36); Mean Corpuscular Hemoglobin 27.1 pg (26-34); Mean Corpuscular Volume 85.6 fl (80-100); Platelet Count Result 314 k/mm3 (150-375); Red Cell Distribution Width 14.3 % (11.5-14.5); White Blood Count 9.6 K/mm3 (4.5-10.0)
[2021-01-26 05:43] LABS: Anion Gap 10 mmol/L (8-16); Blood Urea Nitrogen 27 mg/dL (7-17); Calcium 8.5 mg/dL (8.4-10.2); Carbon Dioxide 22 mmol/L (22-30); Chloride 102 mmol/L (98-107); Estimated CRCL calculation 21 ml/min; Estimated Glomerular Filt Rate 33; Glucose 137 mg/dL (65-105); Potassium 4.3 mmol/L (3.4-5.0); Sodium 134 mmol/L (137-145)
--- NOTE | 2021-01-26 06:52 | PM.PNCARD ---
Progress Note: A&P Assessment and Plan (1) CHF (congestive heart failure): Code(s): I50.9 - Heart failure, unspecified Status: Acute Assessment and Plan: Systolic heart failure with EF 30-35%. Given her DNR status and dementia will treat her conservatively, and she and family agreeable to not obtain Life Vest or ICD. She is on Metoprolol and Lisinopril. Currently on Lasix 20 mg IV BID. (2) Elevated troponin: Code(s): R77.8 - Other specified abnormalities of plasma proteins Status: Acute Assessment and Plan: Mild and peaked. Likely related to CHF and not ACS as no symptomatology to suggest it. (3) PAF (paroxysmal atrial fibrillation): Code(s): I48.0 - Paroxysmal atrial fibrillation Status: Acute Assessment and Plan: [id number] 5. Rate control with Metoprolol. Given her risk of falls, would treat her with home Clopidogrel and not anticoagulation. Discussed with her and family that she is at risk of cardioembolism without true anticoagulation. (4) CAD (coronary artery disease), autologous vein bypass graft: Code(s): I25.810 - Atherosclerosis of coronary artery bypass graft(s) without angina pectoris Status: Acute (5) Mitral regurgitation: Code(s): I34.0 - Nonrheumatic mitral (valve) insufficiency Status: Acute Assessment and Plan: Continue with diuresis. (6) Carotid stenosis, right: Code(s): I65.21 - Occlusion and stenosis of right carotid artery Status: Acute Assessment and Plan: She is scheduled to have procedure to treat it with her regular software sales executive with [facility] in [place] in February 2021. (7) Hypertension: Code(s): I10 - Essential (primary) hypertension Status: Inactive Assessment and Plan: Stable. Subjective Date/time seen: 01/26/21 06:52 She is alert and oriented x2, but thinks she's in a [facility] center. No chest pain or sob. Exam Const: General: cooperative, healthy appearing and comfortable HENMT: Other: Bruising to her forehead and chin. Resp: Auscultation: no crackles, no rales, no rhonchi, no wheezes and diminished lung sounds Cardio: Jugular venous distension: no JVD Rate: regular rate Rhythm: abnormal rhythm Heart sounds: no murmurs GI: GI Palp: No abdominal tenderness and Yes Soft to palpation Neuro: General: oriented to person, No oriented to place and oriented to time Extrem: Right lower extremity: edema Left lower extremity: edema Other: Mod left leg and mild right leg edema. Objective Data Vital Signs Vital Signs: Vital Signs - 24 hr 01/25/21 08:00 01/25/21 08:58 01/25/21 10:00 Temperature 96.8 F L Pulse Rate 80 83 80 Respiratory Rate 18 Blood Pressure 150/73 H Pulse Oximetry 97 01/25/21 12:00 01/25/21 14:00 01/25/21 16:00 Temperature 98.1 F 97.5 F L Pulse Rate 79 78 85 Respiratory Rate 18 18 Blood Pressure 135/64 186/87 H Pulse Oximetry 96 98 01/25/21 18:00 01/25/21 20:00 01/25/21 21:41 Temperature 96.9 F L Pulse Rate 79 79 Respiratory Rate 20 Blood Pressure 96/73 L Pulse Oximetry 97 97 01/25/21 22:00 01/25/21 22:20 01/25/21 23:40 Temperature 96.8 F L Pulse Rate 85 85 75 Respiratory Rate 20 Blood Pressure 102/73 Pulse Oximetry 97 01/26/21 00:00 01/26/21 02:00 01/26/21 04:00 Temperature 97.3 F L Pulse Rate 77 66 75 Respiratory Rate 18 Blood Pressure 114/81 Pulse Oximetry 97 97 01/26/21 06:00 Temperature Pulse Rate 82 Respiratory Rate Blood Pressure Pulse Oximetry Intake/Output Intake/Output: Intake & Output 01/23/21 01/24/21 01/25/21 01/26/21 23:59 23:59 23:59 23:59 Intake Total 500 1100 980 Output Total 250 1450 700 Balance 250 -350 280 Meds/Results Medications: Active Medications Generic Name Dose Route Start Last Admin Trade Name Freq PRN Reason Stop Dose Admin Acetaminophen 650 mg 01/24/21 02:25 Acetaminophen 325 Mg Tablet
[2021-01-26] MEDS: ACETAMINOPHEN 325 MG TABLET 650 MG PO (06:53)
[2021-01-26] MEDS: ATORVASTATIN 40 MG TABLET 80 MG PO (08:14)
[2021-01-26] MEDS: CLOPIDOGREL BISULFATE 75 MG TABLET PO (08:14)
[2021-01-26] MEDS: METOPROLOL TARTRATE 12.5 MG TABLET PO ×2 (08:16→20:41)
[2021-01-26] MEDS: lisinopriL 5 MG TABLET PO (08:16)
[2021-01-26] MEDS: FERROUS SULFATE 324 MG TABLET PO ×2 (08:17→16:59)
[2021-01-26] MEDS: EZETIMIBE 10 MG TABLET PO (08:17)
[2021-01-26] MEDS: CYANOCOBALAMIN 1,000 MCG TABLET 1000 MCG PO (08:17)
[2021-01-26] MEDS: FUROSEMIDE INJ 40 MG/4 ML VIAL 20 MG IV PUSH ×2 (08:18→16:59)
[2021-01-26] MEDS: LORATADINE 10 MG TABLET PO (08:18)
--- NOTE | 2021-01-26 17:30 | PM.IMPN ---
Progress Note: A&P Assessment and Plan (1) Atrial fib/flutter, transient: Status: Acute Assessment and Plan: The patient has rate controlled AFib noted on EKG. She does not have a known history of AFib in past. Exact chronicity of AFib is unclear. VQ scan is low probability. HCTZ stopped and metoprolol added. The patient is a poor candidate for chronic anticoagulation given her advanced age and fall risk. TSH within normal limit (2) CHF (congestive heart failure): Code(s): I50.9 - Heart failure, unspecified Status: Acute Assessment and Plan: Acute systolic and diastolic CHF exacerbation. On imaging the patient has ?significant pleural effusion? noted on CT of the head neck. CXR however showing borderline heart size with mild interstitial edema and small pleural effusions, right greater than left. Likely due to previously unrecognized CHF. The patient received Lasix in the ER. Echo results showing EF 30-35%, abnormal diastolic function, severe mitral valve regurgitation, moderate tricuspid valve regurgitation and moderate pulmonary hypertension with estimated pulmonary arterial systolic pressure is 51 mmHg. Continue metoprolol. Add Lisinopril. Monitor Cr closely with JB. Cardiology consult for the severe MR and AFib. Improving (3) Pleural effusion: Code(s): J90 - Pleural effusion, not elsewhere classified Status: Acute Assessment and Plan: As above. (4) Renal failure: Qualifiers: Renal failure chronicity: unspecified chronicity Qualified Code(s): N19 - Unspecified kidney failure Code(s): N19 - Unspecified kidney failure Status: Acute Assessment and Plan: The patient has some renal failure noted on labs with Cr at 1.8. Unclear on baseline but probably has underlying chronic kidney disease. Tolerated Lasix. Continue to monitor UOP. Renal ultrasound with no hydronephrosis renal function stable (5) Elevated troponin: Code(s): R77.8 - Other specified abnormalities of plasma proteins Status: Acute Assessment and Plan: Patient has a troponin elevation on admission to 0.171 likely due to CHF exacerbation and atrial fibrillation. Troponin is trending down now and was relatively flat overall. Will continue monitor on telemetry. Echo as above. (6) Confusion: Code(s): R41.0 - Disorientation, unspecified Status: Acute Assessment and Plan: The patient presented to the ER after a fall. Sounds if the patient's fall may have been due to trip and fall. However the patient is poor historian. The patient reports she has had progressive decline and a memory and suspect she has underlying dementia. Contineu fall precautions. Will avoid sedating medications to help prevent worsening of her confusion. Monitor for now. B12 and thyroid function normal (7) Anemia: Code(s): D64.9 - Anemia, unspecified Status: Acute Assessment and Plan: Hgb 11.6 on admission but dropped to 9.5 felt related to diffuse eccyhmosis. Monitor for now. (8) Traumatic hematoma of left knee: Code(s): S80.02XA - Contusion of left knee, initial encounter Status: Acute Assessment and Plan: Given the patient's marked edema of lower extremities, venous Dopplers negative for DVT. Continue diuresis. Continue curent wound care to the multiple wounds. PT/OT. (9) Chin laceration: Qualifiers: Encounter type: initial encounter Qualified Code(s): S01.81XA - Laceration without foreign body of other part of head, initial encounter Code(s): S01.81XA - Laceration without foreign body of other part of head, initial encounter Status: Acute Assessment and Plan: As above. (10) Forehead laceration: Qualifiers: Encounter type: initial encounter Qualified Code(s): S01.81XA - Laceration without foreign body of other part of head, initial encounter
[2021-01-27] VITALS (11 sets, daily range): BP systolic 141–149; BP diastolic 76–86; PULSE 62–79; RESP 16; TEMP 36.2–36.4; O2SAT 97–98
[2021-01-27 05:55] LABS: Basophils Percent Auto 0.2 % (0.2-1.2); Hematocrit 28.9 % (37.0-47.0); Hemoglobin 9.2 g/dL (12.0-15.0); Immature Granulocyte Percent A 1.2 % (0-0.5); Lymphocytes Absolute Auto 0.56 K/mm3 (0.9-3.2); Lymphocytes Percent Auto 6.5 % (18.3-44.2); Mean Corpuscular HGB Conc 31.8 g/dl (32-36); Mean Corpuscular Hemoglobin 26.9 pg (26-34); Mean Corpuscular Volume 84.5 fl (80-100); Mean Platelet Volume 10.9 fl (7.4-10.4); Monocytes Absolute Auto 0.5 K/mm3 (0.1-0.6); Monocytes Percent Auto 5.7 % (2.6-8.5); Neutrophils Absolute Auto 7.5 K/mm3 (1.3-6.7); Neutrophils Percent Auto 86.4 % (45.5-73.1); Platelet Count Result 356 k/mm3 (150-375); Red Blood Count 3.42 M/mm3 (4.2-5.4); Red Cell Distribution Width 14.6 % (11.5-14.5); White Blood Count 8.7 K/mm3 (4.5-10.0)
[2021-01-27 06:04] LABS: Anion Gap 10 mmol/L (8-16); Blood Urea Nitrogen 34 mg/dL (7-17); Calcium 8.5 mg/dL (8.4-10.2); Carbon Dioxide 25 mmol/L (22-30); Chloride 99 mmol/L (98-107); Estimated CRCL calculation 19 ml/min; Estimated Glomerular Filt Rate 28; Glucose 146 mg/dL (65-105); Potassium 3.8 mmol/L (3.4-5.0); Sodium 134 mmol/L (137-145)
--- NOTE | 2021-01-27 08:10 | PM.PNCARD ---
Progress Note: A&P Assessment and Plan (1) CHF (congestive heart failure): Code(s): I50.9 - Heart failure, unspecified Status: Acute Assessment and Plan: Systolic heart failure with EF 30-35%. Given her DNR status and dementia will treat her conservatively, and she and family agreeable to not obtain Life Vest or ICD. She is on Metoprolol and Lisinopril. Change Metoprol to Coreg for improvement in systolic dysfunction since her BP is high now. Currently on Lasix 20 mg IV BID as she she has significant edema of left leg. (2) Elevated troponin: Code(s): R77.8 - Other specified abnormalities of plasma proteins Status: Acute Assessment and Plan: Mild and peaked. Likely related to CHF and not ACS as no symptomatology to suggest it. (3) PAF (paroxysmal atrial fibrillation): Code(s): I48.0 - Paroxysmal atrial fibrillation Status: Acute Assessment and Plan: [id number] 5. Rate control with Metoprolol. Change Metoprolol to Coreg. Given her risk of falls, would treat her with home Clopidogrel and not anticoagulation. Discussed with her and family that she is at risk of cardioembolism without true anticoagulation. (4) CAD (coronary artery disease), autologous vein bypass graft: Code(s): I25.810 - Atherosclerosis of coronary artery bypass graft(s) without angina pectoris Status: Acute (5) Mitral regurgitation: Code(s): I34.0 - Nonrheumatic mitral (valve) insufficiency Status: Acute Assessment and Plan: Continue with diuresis. (6) Carotid stenosis, right: Code(s): I65.21 - Occlusion and stenosis of right carotid artery Status: Acute Assessment and Plan: She is scheduled to have procedure to treat it with her regular features reporter with [facility] in [place] in February 2021. (7) Hypertension: Code(s): I10 - Essential (primary) hypertension Status: Inactive Assessment and Plan: Mildly high. Continue Lisinopril. Change Metoprolol Tartate 12.5 mg BID to Coreg 3.125 mg BID. Subjective Date/time seen: 01/27/21 08:10 Denies chest pain or sob. Left leg swelling. Exam Const: General: cooperative, healthy appearing and comfortable HENMT: Other: Bruising to her forehead and chin. Resp: Auscultation: no crackles, no rales, no rhonchi, no wheezes and diminished lung sounds Cardio: Jugular venous distension: no JVD Rate: regular rate Rhythm: abnormal rhythm Heart sounds: no murmurs GI: GI Palp: No abdominal tenderness and Yes Soft to palpation Neuro: General: oriented to person, No oriented to place and oriented to time Extrem: Right lower extremity: no edema Left lower extremity: edema Other: Mod left leg and foot swelling. Objective Data Vital Signs Vital Signs: Vital Signs - 24 hr 01/26/21 08:16 01/26/21 10:00 01/26/21 11:50 Temperature 97.8 F Pulse Rate 80 67 75 Respiratory Rate 12 Blood Pressure 146/77 H Pulse Oximetry 99 01/26/21 12:00 01/26/21 15:53 01/26/21 16:00 Temperature 97.6 F Pulse Rate 63 90 77 Respiratory Rate 14 Blood Pressure 144/79 H Pulse Oximetry 99 01/26/21 20:00 01/26/21 20:02 01/26/21 20:41 Temperature 97.2 F L Pulse Rate 72 73 70 Respiratory Rate 16 Blood Pressure 154/73 H Pulse Oximetry 98 98 01/27/21 00:00 01/27/21 03:18 01/27/21 04:00 Temperature 97.5 F L Pulse Rate 73 79 62 Respiratory Rate 16 Blood Pressure 149/76 H Pulse Oximetry 97 Intake/Output Intake/Output: Intake & Output 01/24/21 01/25/21 01/26/21 01/27/21 23:59 23:59 23:59 23:59 Intake Total 1100 980 660 600 Output Total 1450 700 Balance -350 280 660 600 Meds/Results Medications: Active Medications Generic Name Dose Route Start Last Admin Trade Name Freq PRN Reason Stop Dose Admin Acetaminophen 650 mg 01/24/21 02:25 01/26/21 06:53 Acetaminophen 325 Mg Tablet PO 650 mg Q6H PRN Administration Mild Pain (1-3) or F
[2021-01-27] MEDS: FERROUS SULFATE 324 MG TABLET PO ×2 (08:24→17:42)
[2021-01-27] MEDS: CLOPIDOGREL BISULFATE 75 MG TABLET PO (08:25)
[2021-01-27] MEDS: ATORVASTATIN 40 MG TABLET 80 MG PO (08:25)
[2021-01-27] MEDS: CYANOCOBALAMIN 1,000 MCG TABLET 1000 MCG PO (08:25)
[2021-01-27] MEDS: FUROSEMIDE INJ 40 MG/4 ML VIAL 20 MG IV PUSH ×2 (08:26→17:42)
[2021-01-27] MEDS: LORATADINE 10 MG TABLET PO (08:26)
[2021-01-27] MEDS: EZETIMIBE 10 MG TABLET PO (08:26)
[2021-01-27] MEDS: lisinopriL 5 MG TABLET PO (08:26)
--- NOTE | 2021-01-27 09:31 | PM.IMPN ---
Progress Note: A&P Assessment and Plan (1) Atrial fib/flutter, transient: Status: Acute Assessment and Plan: The patient has rate controlled AFib noted on EKG. She does not have a known history of AFib in past. Exact chronicity of AFib is unclear. VQ scan is low probability. HCTZ stopped and metoprolol added. The patient is a poor candidate for chronic anticoagulation given her advanced age and fall risk. TSH within normal limit Will continue current plan of care and treatment. Consult noted. (2) CHF (congestive heart failure): Code(s): I50.9 - Heart failure, unspecified Status: Acute Assessment and Plan: Acute systolic and diastolic CHF exacerbation. On imaging the patient has ?significant pleural effusion? noted on CT of the head neck. CXR however showing borderline heart size with mild interstitial edema and small pleural effusions, right greater than left. Likely due to previously unrecognized CHF. The patient received Lasix in the ER. Echo results showing EF 30-35%, abnormal diastolic function, severe mitral valve regurgitation, moderate tricuspid valve regurgitation and moderate pulmonary hypertension with estimated pulmonary arterial systolic pressure is 51 mmHg. Continue metoprolol. Add Lisinopril. Monitor Cr closely with JB. Cardiology consult for the severe MR and AFib. Improving Will continue current plan of care and treatment. Breathing is better. (3) Pleural effusion: Code(s): J90 - Pleural effusion, not elsewhere classified Status: Acute Assessment and Plan: As above. (4) Renal failure: Qualifiers: Renal failure chronicity: unspecified chronicity Qualified Code(s): N19 - Unspecified kidney failure Code(s): N19 - Unspecified kidney failure Status: Acute Assessment and Plan: The patient has some renal failure noted on labs with Cr at 1.8. Unclear on baseline but probably has underlying chronic kidney disease. Tolerated Lasix. Continue to monitor UOP. Renal ultrasound with no hydronephrosis renal function stable (5) Elevated troponin: Code(s): R77.8 - Other specified abnormalities of plasma proteins Status: Acute Assessment and Plan: Patient has a troponin elevation on admission to 0.171 likely due to CHF exacerbation and atrial fibrillation. Troponin is trending down now and was relatively flat overall. Will continue monitor on telemetry. Echo as above. (6) Confusion: Code(s): R41.0 - Disorientation, unspecified Status: Acute Assessment and Plan: The patient presented to the ER after a fall. Sounds if the patient's fall may have been due to trip and fall. However the patient is poor historian. The patient reports she has had progressive decline and a memory and suspect she has underlying dementia. Contineu fall precautions. Will avoid sedating medications to help prevent worsening of her confusion. Monitor for now. B12 and thyroid function normal (7) Anemia: Code(s): D64.9 - Anemia, unspecified Status: Acute Assessment and Plan: Hgb 11.6 on admission but dropped to 9.5 felt related to diffuse eccyhmosis. Monitor for now. (8) Traumatic hematoma of left knee: Code(s): S80.02XA - Contusion of left knee, initial encounter Status: Acute Assessment and Plan: Given the patient's marked edema of lower extremities, venous Dopplers negative for DVT. Continue diuresis. Continue curent wound care to the multiple wounds. PT/OT. (9) Chin laceration: Qualifiers: Encounter type: initial encounter Qualified Code(s): S01.81XA - Laceration without foreign body of other part of head, initial encounter Code(s): S01.81XA - Laceration without foreign body of other part of head, initial encounter Status: Acute Assessment and Plan: As above. (10) Forehead laceration: Qualifiers: En
[2021-01-27] MEDS: carvediloL 3.125 MG TABLET PO ×2 (10:16→20:34)
[2021-01-27] MEDS: ACETAMINOPHEN 325 MG TABLET 650 MG PO (20:34)
[2021-01-28] VITALS (7 sets, daily range): BP systolic 132–146; BP diastolic 55–75; PULSE 60–90; RESP 16–17; TEMP 37–37.1; O2SAT 96–99
--- NOTE | 2021-01-28 08:05 | PM.CNCAR ---
Assessment and Plan Assessment and plan (1) CHF (congestive heart failure): Code(s): I50.9 - Heart failure, unspecified Status: Acute Assessment and Plan: Systolic heart failure with EF 30-35%. Given her DNR status and dementia will treat her conservatively, and she and family agreeable to not obtain Life Vest or ICD. On Coreg and Lisinopril. Currently on Lasix 20 mg IV BID and edema resolving. (2) Elevated troponin: Code(s): R77.8 - Other specified abnormalities of plasma proteins Status: Acute Assessment and Plan: Mild and peaked. Likely related to CHF and not ACS as no symptomatology to suggest it. (3) PAF (paroxysmal atrial fibrillation): Code(s): I48.0 - Paroxysmal atrial fibrillation Status: Acute Assessment and Plan: [id number] 5. Rate control with Metoprolol. Change Metoprolol to Coreg. Given her risk of falls, would treat her with home Clopidogrel and not anticoagulation. Discussed with her and family that she is at risk of cardioembolism without true anticoagulation. (4) CAD (coronary artery disease), autologous vein bypass graft: Code(s): I25.810 - Atherosclerosis of coronary artery bypass graft(s) without angina pectoris Status: Acute (5) Mitral regurgitation: Code(s): I34.0 - Nonrheumatic mitral (valve) insufficiency Status: Acute Assessment and Plan: Continue with diuresis. (6) Carotid stenosis, right: Code(s): I65.21 - Occlusion and stenosis of right carotid artery Status: Acute Assessment and Plan: She is scheduled to have procedure to treat it with her regular color adviser with [facility] in [place] in February 2021. (7) Hypertension: Code(s): I10 - Essential (primary) hypertension Status: Inactive Assessment and Plan: Mildly high. Increase Lisinopril 10 mg daily and on Coreg 3.125 mg BID. History of Present Illness History of Present Illness Consult date/time: 01/28/21 08:05 She is oriented x2, but not to year thinking it's '01. Denies chest pain or sob. Reason For Visit: Atrial Fib/Flutter,Head Injury,Multiple Contusions PMFSH Past Medical History Medical History (Updated 01/24/21 @ 14:29 by Simon Clarke DO) Carotid artery disease Carotid artery sclerosis Hyperlipidemia Hypertension Surgical History Surgical History (Updated 01/24/21 @ 02:32 by Aisha Toth DO) No significant past surgical history Family History Family History Mother Alzheimer disease Diabetes mellitus Heart disease Father Stomach ulcer Social History Social History (Updated 01/24/21 @ 09:07 by Aisha Toth DO) Social History: The patient reports that she lives alone. She states that she has been for 30 years. She states she has been twice in her life. She has 2 children. 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 She has a walker and wheelchair at home but it sounds as if she ambulates around the house most the time by grabbing onto furniture. Code status: DNR Surrogate decision maker: Charlotte (daughter) Smoking status: Former smoker Additional smoking assessment comments: as a teenager Alcohol intake: never Substance use: never Gender identity (if verbalized by the patient): Female Spiritual care concerns: No Meds Home Medications and Allergies Home Medications Medication Instructions Recorded Confirmed Type atorvastatin 80 mg PO DAILY 01/23/21 01/23/21 History clopidogrel 75 mg PO DAILY 01/23/21 01/23/21 History ezetimibe 10 mg PO DAILY 01/23/21 01/23/21 History hydrochlorothiazide 12.5 mg PO DAILY 01/23/21 01/23/21 History loratadine 10 mg PO DAILY 01/23/21 01/23/21 History Allergies Allergy/AdvReac Type Severity Reaction Status Date / Time No Known Allergies Allergy Verified 01/23/21 13:08 Vital Signs Vital Signs - 24 hr 01/27/21 10:16
[2021-01-28] MEDS: FERROUS SULFATE 324 MG TABLET PO ×2 (11:04→17:06)
[2021-01-28] MEDS: ATORVASTATIN 40 MG TABLET 80 MG PO (11:04)
[2021-01-28] MEDS: carvediloL 3.125 MG TABLET PO (11:04)
[2021-01-28] MEDS: EZETIMIBE 10 MG TABLET PO (11:05)
[2021-01-28] MEDS: CLOPIDOGREL BISULFATE 75 MG TABLET PO (11:05)
[2021-01-28] MEDS: CYANOCOBALAMIN 1,000 MCG TABLET 1000 MCG PO (11:05)
[2021-01-28] MEDS: LORATADINE 10 MG TABLET PO (11:06)
[2021-01-28] MEDS: lisinopriL 10 MG TABLET PO (11:06)
[2021-01-28] MEDS: FUROSEMIDE INJ 40 MG/4 ML VIAL 20 MG IV PUSH ×2 (11:06→17:06)
--- NOTE | 2021-01-28 15:53 | PM.DS ---
DS: Admitting Diagnosis Admitting Diagnosis Admitting Diagnosis: Fall with head injury DS: Discharge Diagnosis Discharge Diagnosis (1) Atrial fib/flutter, transient: Status: Acute Assessment and Plan: The patient wsa noted to have rate controlled AFib noted on EKG. She does not have a known history of AFib in past. Exact chronicity of AFib is unclear. VQ scan was low probability. HCTZ stopped and metoprolol added. The patient was felt to be a poor candidate for chronic anticoagulation given her advanced age and fall risk. TSH within normal limit. (2) CHF (congestive heart failure): Code(s): I50.9 - Heart failure, unspecified Status: Acute Assessment and Plan: Acute systolic and diastolic CHF exacerbation. CXR showing borderline heart size with mild interstitial edema and small pleural effusions, right greater than left. Likely due to previously unrecognized CHF. The patient received Lasix in the ER. Echo results showing EF 30-35%, abnormal diastolic function, severe mitral valve regurgitation, moderate tricuspid valve regurgitation and moderate pulmonary hypertension with estimated pulmonary arterial systolic pressure is 51 mmHg. We continued the metoprolol and added Lisinopril. She was also treated with IV Lasix with good results. Cr remained stable with JB inhibitor and Lasix. Cardiology was consulted. (3) Pleural effusion: Code(s): J90 - Pleural effusion, not elsewhere classified Status: Acute Assessment and Plan: As above. (4) Renal failure: Qualifiers: Renal failure chronicity: unspecified chronicity Qualified Code(s): N19 - Unspecified kidney failure Code(s): N19 - Unspecified kidney failure Status: Acute Assessment and Plan: The patient has chronic renal failure noted on labs with Cr at 1.8 range. Unclear on baseline but felt she has underlying chronic kidney disease. Renal ultrasound with no hydronephrosis. She tolerated Lasix. (5) Elevated troponin: Code(s): R77.8 - Other specified abnormalities of plasma proteins Status: Acute Assessment and Plan: Patient has a troponin elevation on admission to 0.171 likely due to CHF exacerbation and atrial fibrillation. EKG showing borderline findings. Troponin trended down and was relatively flat overall. Echo as above. (6) Confusion: Code(s): R41.0 - Disorientation, unspecified Status: Acute Assessment and Plan: The patient presented to the ER after a fall. Sounds if the patient's fall may have been due to trip and fall. However the patient is poor historian. The patient reports she has had progressive decline in memory and suspect she has underlying dementia. Fall precautions initiated. B12 was low end of normal at 241 and this was replaced. Thyroid function was normal (7) Anemia: Code(s): D64.9 - Anemia, unspecified Status: Acute Assessment and Plan: Hgb 11.6 on admission but dropped to 9 range and there it remained stable. [place] related to diffuse ecchymosis. B12 was low end of normal at 241 and this was replaced. Iron studies showing low iron with Tsat 5%. Ferritin normal at 50. [place] related to knee hematoma and ecchymosis. Iron started. (8) Traumatic hematoma of left knee: Code(s): S80.02XA - Contusion of left knee, initial encounter Status: Acute Assessment and Plan: The patient had edema of lower extremities. Venous Dopplers negative for DVT. Treated with diuresis. We continued current wound care to the multiple wounds. PT/OT ordered. (9) Chin laceration: Qualifiers: Encounter type: initial encounter Qualified Code(s): S01.81XA - Laceration without foreign body of other part of head, initial encounter Code(s): S01.81XA - Laceration without foreign body of other part of head, initial encounter Status: Acute Assessment and Plan:
== END 2021-01-28 18:38 | disposition home health service (06) | DRG 291 ==
LOC: ANHED 17:21 → ANHIMU 01-24 07:42
PROVIDERS: Emergency Medicine Emergency Medical Services; Internal Medicine; Admitting Provider Internal Medicine; Emergency Provider Emergency Medicine; PCP Internal Medicine; Visit Provider Internal Medicine
DX: I13.0 Hypertensive heart and chronic kidney disease with heart failure and stage 1 through stage 4 chronic kidney disease, or unspecified chronic kidney disease (principal); I50.41 Acute combined systolic (congestive) and diastolic (congestive) heart failure; N17.9 Acute kidney failure, unspecified; I48.92 Unspecified atrial flutter; I48.91 Unspecified atrial fibrillation; S01.81XA Laceration without foreign body of other part of head, initial encounter; S00.83XA Contusion of other part of head, initial encounter; S80.02XA Contusion of left knee, initial encounter; W19.XXXA Unspecified fall, initial encounter; D50.9 Iron deficiency anemia, unspecified; R41.0 Disorientation, unspecified; N18.9 Chronic kidney disease, unspecified; E78.5 Hyperlipidemia, unspecified; D72.829 Elevated white blood cell count, unspecified; I34.0 Nonrheumatic mitral (valve) insufficiency; I65.21 Occlusion and stenosis of right carotid artery; I65.29 Occlusion and stenosis of unspecified carotid artery; Z87.891 Personal history of nicotine dependence; Z66 Do not resuscitate
CPT/HCPCS: 12011; 36415; 36600; 51701; 70450; 71045; 72125; 73030; 73562; 73610; 76775; 78580; 80048; 80053; 80061; 81001; 82375; 82607; 82728; 82746; 82805; 83050; 83540; 83550; 83735; 83880; 84100; 84443; 84484; 85025; 85027; 85610; 85730; 93005; 93306; 93970; 94640; 96365; 96375; 97110; 97161; 97165; 97530; 97535; 99285; A9270; A9540; G0378; J0131; J1940; J3420; J7030; J7040

== ENCOUNTER 2021-02-04 12:42 | Outpatient (NON) | payer MEDICARE, OTHER, SELFPAY ==
[2021-02-04 13:18] LABS: Anion Gap 7 mmol/L (8-16); Blood Urea Nitrogen 23 mg/dL (7-17); Calcium 8.5 mg/dL (8.4-10.2); Carbon Dioxide 32 mmol/L (22-30); Chloride 98 mmol/L (98-107); Estimated Glomerular Filt Rate 39; Glucose 101 mg/dL (65-105); Potassium 3.1 mmol/L (3.4-5.0); Sodium 137 mmol/L (137-145)
== END 2021-02-04 12:43 | disposition home or self-care (01) ==
PROVIDERS: PCP Internal Medicine; Visit Provider Internal Medicine
DX: I50.9 Heart failure, unspecified (principal)
CPT/HCPCS: 80048

== ENCOUNTER 2021-04-02 17:16 | Emergency (ER) | payer MEDICARE, OTHER, SELFPAY ==
--- NOTE | ~2021-04-02 | XR_ITS ---
XR tibia fibula RT 2V DATE: 04/02/2021 18:24 INDICATION: Sores and blistering all over the leg TECHNIQUE: AP and lateral views COMPARISON: None FINDINGS: There is extensive calcification of the femoral, popliteal and trifurcation arteries. There is tricompartment osteoarthritis of the knee, involving particularly severely the medial compar tment with very prominent particular spurring of the patella. Chondrocalcinosis at the knee joint is suspected. Diffuse osteopenia. No fracture or dislocation, periosteal reaction or bone destruction. No radiopaqu e soft tissue foreign body. IMPRESSION: Tricompartment osteoarthritis of the knee, particularly severe at the medial compartment Diffuse osteopenia Extensive arterial calcification Reviewed, dictated and finalized at location A. IMPRESSION: Tricompartment osteoarthritis of the knee, particularly severe at t he medial compartment Diffuse osteopenia Extensive arterial calcification
[2021-04-02 17:24] VITALS: BP 90/53; PULSE 94; RESP 20; TEMP 37.4; O2SAT 99
[2021-04-02 17:42] LABS: Basophils Absolute Auto 0.1 K/mm3 (0.0-0.1); Basophils Percent Auto 0.7 % (0.2-1.2); Eosinophils Absolute Auto 0.2 K/mm3 (0-0.3); Eosinophils Percent Auto 3.4 % (0-4.4); Immature Granulocyte Absolute 0.02 K/mm3 (0.00-0.031); Immature Granulocyte Percent A 0.3 % (0-0.5); Lymphocytes Absolute Auto 0.94 K/mm3 (0.9-3.2); Mean Corpuscular HGB Conc 31.4 g/dl (32-36); Mean Corpuscular Hemoglobin 28.4 pg (26-34); Mean Corpuscular Volume 90.2 fl (80-100); Mean Platelet Volume 10.5 fl (7.4-10.4); Monocytes Absolute Auto 0.6 K/mm3 (0.1-0.6); Monocytes Percent Auto 9.1 % (2.6-8.5); Neutrophils Absolute Auto 4.9 K/mm3 (1.3-6.7); Neutrophils Percent Auto 72.5 % (45.5-73.1); Platelet Count Result 296 k/mm3 (150-375); Red Blood Count 3.88 M/mm3 (4.2-5.4); Red Cell Distribution Width 16.6 % (11.5-14.5); White Blood Count 6.7 K/mm3 (4.5-10.0)
[2021-04-02 17:52] LABS: Anion Gap 7 mmol/L (8-16); Blood Urea Nitrogen 26 mg/dL (7-17); Calcium 7.9 mg/dL (8.4-10.2); Carbon Dioxide 27 mmol/L (22-30); Chloride 102 mmol/L (98-107); Estimated CRCL calculation 20 ml/min; Estimated Glomerular Filt Rate 33; Glucose 129 mg/dL (65-110); Potassium 3.2 mmol/L (3.4-5.0); Sodium 136 mmol/L (137-145)
[2021-04-02 18:02] VITALS: BP 140/63; PULSE 80; RESP 18; O2SAT 93
--- NOTE | 2021-04-02 18:46 | ED.EXTPRO ---
HPI - Extremity Problem General Chief complaint: Extremity Problem,Nontraumatic Stated complaint: Legs swelling and draining Time Seen by Provider: 04/02/21 18:01 Source: patient History of Present Illness HPI Narrative: Patient presents with worsening blister on the right leg. Symptoms there for approximately 2 days and getting worse. Reporting increasing pain to the area. Pain is achy, constant, worse with attempting to use the lower extremity. She denies any fevers, nausea, vomiting. She has not chest pain or shortness of breath denies any lightheadedness Related Data Home Medications Medication Instructions Recorded Confirmed atorvastatin 80 mg PO DAILY 01/23/21 01/23/21 clopidogrel 75 mg PO DAILY 01/23/21 01/23/21 ezetimibe 10 mg PO DAILY 01/23/21 01/23/21 loratadine 10 mg PO DAILY 01/23/21 01/23/21 Allergies Allergy/AdvReac Type Severity Reaction Status Date / Time No Known Allergies Allergy Verified 01/23/21 13:08 Review of Systems Review of Systems: CONSTITUTIONAL: Denies fever, chills, or sweats. EYES: Denies visual changes, redness, or discharge. ENT: Denies rhinorrhea, congestion, sore throat, or otalgia. CARDIOVASCULAR: Denies chest pain, palpitations, or edema. RESPIRATORY: Denies cough or dyspnea. GASTROINTESTINAL: Denies abdominal pain, nausea, vomiting, or diarrhea. GENITOURINARY: Denies dysuria or hematuria. SKIN: Denies rash or itching. MUSCULOSKELETAL: Denies back pain, joint pain, or myalgia. NEUROLOGIC: Denies headache, numbness, dizziness, or weakness. PSYCHIATRIC: Denies anxiety or depression. All systems reviewed & are unremarkable except as noted in HPI and below PMFSH Past Medical History Medical History Carotid artery disease Carotid artery sclerosis Hyperlipidemia Hypertension Surgical History Surgical History No significant past surgical history Family History Family History Mother Alzheimer disease Diabetes mellitus Heart disease Father Stomach ulcer Social History Social History Social History: The patient reports that she lives alone. She states that she has been for 30 years. She states she has been twice in her life. She has 2 children. 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 She has a walker and wheelchair at home but it sounds as if she ambulates around the house most the time by grabbing onto furniture. Code status: DNR Surrogate decision maker: Charlotte (daughter) Smoking status: Former smoker Additional smoking assessment comments: as a teenager Alcohol intake: never Substance use: never Gender identity (if verbalized by the patient): Female Spiritual care concerns: No Exam Narrative: GENERAL: Well-appearing, well-nourished, and in no acute distress. HEAD: Normocephalic, atraumatic. EYES: PERRLA and EOMI. ENT: Nares clear, no rhinorrhea or epistaxis. Mucous membranes moist. NECK: Supple. No masses. No JVD ABDOMEN: Soft, nontender, nondistended, normal active bowel sounds. EXTREMITIES: Symmetric pitting edema multiple blisters on the right lower extremity there is a 3 x 3 cm area with some purulent material and surrounding erythema SKIN: Warm, dry, no rash. NEURO: No focal deficits. Alert and oriented x3. PSYCH: Normal mood and affect. Course Vital Signs Vital signs: Vital Signs Temperature 37.4 C 04/02/21 17:24 Pulse Rate 94 04/02/21 17:24 Respiratory Rate 20 04/02/21 17:24 Blood Pressure 90/53 L 04/02/21 17:24 Pulse Oximetry 99 04/02/21 17:24 Temperature 37.4 C 04/02/21 17:24 Pulse Rate 67 04/02/21 19:18 Respiratory Rate 16 04/02/21 19:18 Blood Pressure 134/54 L 04/02/21 19:18 Pulse Oximetry 100 04/02/21 19:18 MDM - Extremity (Nontraumatic) MDM Na
[2021-04-02 19:06] LABS: CRP 0.8 mg/dL (<1.0)
[2021-04-02 19:18] VITALS: BP 134/54; PULSE 67; RESP 16; O2SAT 100
[2021-04-02 20:24] LABS: Erythrocyte Sedimentation Rate 13 mm/hr (0-20)
== END 2021-04-02 19:18 | disposition home or self-care (01) ==
PROVIDERS: Emergency Provider Emergency Medicine; PCP Internal Medicine
DX: L03.115 Cellulitis of right lower limb (principal); I25.10 Atherosclerotic heart disease of native coronary artery without angina pectoris; I10 Essential (primary) hypertension; E78.5 Hyperlipidemia, unspecified; Z87.891 Personal history of nicotine dependence
CPT/HCPCS: 36415; 73590; 80048; 85025; 85652; 86140; 99283

== ENCOUNTER 2021-06-24 09:05 | Inpatient (IN) | payer MEDICARE, OTHER, SELFPAY ==
[2021-06-24] VITALS (22 sets, daily range): BP systolic 113–202; BP diastolic 76–127; PULSE 79–96; RESP 16–27; TEMP 36.6–36.7; O2SAT 86–100; BMI 26.2
--- NOTE | ~2021-06-24 | US_ITS ---
EXAMINATION: US venous doppler [facility] DATE: 06/25/2021 13:33 INDICATION: Lower limb edema. TECHNIQUE: Grayscale ultrasound images without and with compression and Doppler ultrasound images of the bilateral lower extremity veins were obtained. COMPARISON: Ultrasound 01/25/2021 FINDINGS: The visualized portions of right common femoral vein, profunda (deep) femoral vein, femoral vein, pop liteal vein, peroneal veins, posterior tibial veins, and greater saphenous vein outflow are patent. The visualized portions of left common femoral vein, profunda femoral vein, femoral vein, popliteal v ein, peroneal veins, posterior tibial veins, and greater saphenous vein outflow are patent. IMPRESSION: 1. No deep venous thrombosis. Reviewed, dictated and finalized at location A. ISTHENICS INSTRUCTOR
--- NOTE | ~2021-06-24 | MR_ITS ---
EXAMINATION: MR brain/brain stem wo con DATE: 06/25/2021 13:21 INDICATION: Confusion. Slurred speech. TECHNIQUE: Magnetic resonance imaging (MRI) of the brain and brainstem was performed without intraven ous contrast. Sequences included sagittal and axial T1-weighted FSE, axial diffusion-weighted FS EPI, axial T2*-weighted GRE, axial T2-weighted FLAIR Propeller, and axial T2-weighted Propeller. Apparent diffusion coefficient (ADC) maps were created. COMPARISON: Head CT 06/24/2021 FINDINGS: There are small old infarcts in the cerebellum bilaterally. There is an old infarct in the rodger on the left. There are scattered areas of nonspecific increased T2-weighted signal intensity in the cerebral white matter. There is no intracranial hemorrhage, acute infarction, or abnormal intracr anial mass lesion. The ventricles are normal in size. There are likely changes of ocular lens replace ment surgeries. There is mild mucosal thickening in the ethmoid sinuses. There are small bilateral ma stoid effusions. IMPRESSION: 1. 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 2. Mild nonspecific cerebral white matter disease, which likely represents chronic small vessel ische edna disease. Reviewed, dictated and finalized at location A. K MACHINE OPERATOR IMPRESSION: 1. 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 2. Mild nonspecific cerebral white matter disease, which likely represents stock controller karthikeyan small vessel ischemic disease.
--- NOTE | ~2021-06-24 | XR_ITS ---
XR chest 1V portable DATE: 06/28/2021 12:43 INDICATION: Dyspnea TECHNIQUE: Portable upright AP chest on 06/28/2021 1229 hours COMPARISON: 06/24/2021 AP chest FINDINGS: Status post sternotomy. Cardiomegaly. There is extensive thoracic aortic calcification. There is pulmonary vascular congestion and redistribution. There are bilateral pulmonary infiltrates involving right mid and both lower lung zones. Mild right pleural effusion. No pneumothorax. Diffuse osteopenia. Prominent osteoarthritic change at the left glenohumeral joint. IMPRESSION: Cardiomegaly, congestive heart failure Bilateral pulmonary infiltrates involving particularly the right mid and both lower lung zones may be due to pulmonary edema. Pneumonia and aspiration pneumonitis are additional considerations The infiltrates are new or substantially increased centimeters 06/24/2021 Reviewed, dictated and finalized at location A. NDER DIE MACHINE OPERATOR IMPRESSION: Cardiomegaly, congestive heart failure Bilateral pulmonary infiltrates involving particularly the right mid and both l ower lung zones may be due to pulmonary edema. Pneumonia and aspiration pneumon itis are additional considerations The infiltrates are new or substantially increased centimeters 06/24/2021
--- NOTE | ~2021-06-24 | CT_ITS ---
EXAMINATION: CT brain wo con EXAM DATE: 06/24/2021 12:26 INDICATION: Altered mental status. Speech impairment. Found on floor this morning. TECHNIQUE: Spiral CT of the head was performed without contrast. Axial, coronal and sagittal images were reviewed. The dose-length product (DLP) for this examination was 605.33 mGy-cm. The exposure w as tailored according to patient size, and iterative reconstruction (ASIR) was used as additional dos e reduction technique. Comparison is made to prior examination from 01/23/2021. FINDINGS: There is no acute intraparenchymal hemorrhage. No evidence of intraparenchymal brain mass lesion. No evidence of acute infarction. Please note that initial head CT has limited sensitivity f or small or acute infarctions. There is mild periventricular and subcortical hypodensity, nonspecific but probably related to small vessel ischemic disease. There is moderate prominence of the sulci a nd ventricles related to cerebral atrophy. There is intracranial carotid arteriosclerosis. There a re no extra-axial collections. There is no mass effect or midline shift. Patient has had bilateral ocular lens surgery. Soft tissue is unremarkable. The visualized sinuses and mastoid air cells are well aerated. IMPRESSION: 1. No acute intracranial findings. 2. Chronic age related findings. Reviewed, dictated and finalized at location B. E SCENE EVIDENCE TECHNICIAN
--- NOTE | ~2021-06-24 | XR_ITS ---
XR chest 1V DATE: 06/24/2021 12:34 INDICATION: Transient alteration of awareness TECHNIQUE: AP chest COMPARISON: 01/23/2021 portable AP chest FINDINGS: Sternal wire sutures. There is cardiomegaly. There is extensive aortic calcification. Hao B-lines are identified suggesting pulmonary interstitial edema. There is mild pulmonary vascul ar prominence. There is mild right and minimal left pleural effusion. There is minimal infiltrate or atelectasis at the lung bases. Diffuse osteopenia. Degenerative change of the thoracic and lumbar spine and mild thoracolumbar dextroscoliosis. There is severe osteoarthritis at the left glenohumeral joint. There is an apparently chronic fractur e of the lateral aspect of the right clavicle. IMPRESSION: Cardiomegaly and mild congestive changes Minimal infiltrate or atelectasis at the lung bases Reviewed, dictated and finalized at location A. R OPERATOR
--- NOTE | 2021-06-24 09:47 | ECG_ITS ---
Measurements Intervals [place] Rate: 96 P: [place]: 0 QRS: 1 QRSD: 121 T: 59 QT: 371 QTc: 469 Interpretive Statements ATRIAL FIBRILLATION VENTRICULAR PREMATURE COMPLEXES RIGHT BUNDLE BRANCH BLOCK CANNOT RULE OUT SEPTAL INFARCT, AGE INDETERMINATE BASELINE WANDER- V5-V6 ABNORMAL ECG Electronically Signed On 06-24-2021 12:51:12 [employer] by Simon Clarke D.O.
--- NOTE | 2021-06-24 10:30 | PC.NURSE ---
Continue to await EDP assessment. Pt continues to speak nonsensicially, speaking about food consistently.
--- NOTE | 2021-06-24 10:34 | PC.NURSE ---
SP02 consistently dipping 88-90% with good pleth. O2 placed at 2L/nc. Dr. Edward suero.
--- NOTE | 2021-06-24 11:20 | PC.NURSE ---
Bedside report to LAURA Conway. Continue to await provider assessment. Pt continues to speak nonsensically about food. MAEW x4. o2 remains at 2L/NC.
[2021-06-24 13:08] LABS: Basophils Percent Auto 0.2 % (0.2-1.2); Eosinophils Percent Auto 0.1 % (0-4.4); Hematocrit 38.8 % (37.0-47.0); Hemoglobin 12.1 g/dL (12.0-15.0); Immature Granulocyte Absolute 0.05 K/mm3 (0.00-0.031); Immature Granulocyte Percent A 0.4 % (0-0.5); Lymphocytes Absolute Auto 0.68 K/mm3 (0.9-3.2); Mean Corpuscular HGB Conc 31.2 g/dl (32-36); Mean Corpuscular Hemoglobin 29.4 pg (26-34); Mean Corpuscular Volume 94.2 fl (80-100); Mean Platelet Volume 11.4 fl (7.4-10.4); Monocytes Absolute Auto 0.9 K/mm3 (0.1-0.6); Monocytes Percent Auto 7.6 % (2.6-8.5); Neutrophils Absolute Auto 9.8 K/mm3 (1.3-6.7); Neutrophils Percent Auto 85.7 % (45.5-73.1); Platelet Count Result 235 k/mm3 (150-375); Red Blood Count 4.12 M/mm3 (4.2-5.4); Red Cell Distribution Width 16.8 % (11.5-14.5); White Blood Count 11.4 K/mm3 (4.5-10.0)
[2021-06-24 13:22] LABS: Lactic Acid Reflex 3.1 mmol/L (0.7-2.1)
--- NOTE | 2021-06-24 13:22 | ED.GENADULT ---
HPI - General Adult General Chief complaint: Unspecified Stated complaint: fall Time Seen by Provider: 06/24/21 11:29 Source: patient, family and EMS Mode of arrival: EMS Limitations: altered mental status, clinical condition and dementia History of Present Illness HPI narrative: 85-year-old female Brought in by EMS after apparently being found on the floor of her house by a daughter Somewhat amazingly she apparently lives there by herself She is accompanied by a different daughter who indicates that they do check on her and that it was in the course of today's essentially wellness check that she was found down She is said to have had a previous stroke with unclear persistent deficits She does have apparently chronic edema and/or wounds on both legs which are wrapped to just below the knee She also has several bruises and minor skin tears of various ages so it does not look like she has been walking around really well for some time Patient really cannot contribute effectively anything to her history It is unclear to me if she has delirium or worsening dementia or if she could have both a receptive and expressive aphasia, most of the stuff she says just does not make any sense and she really does not reliably follow any directions or answer any questions correctly Related Data Home Medications Medication Instructions Recorded Confirmed atorvastatin 80 mg PO DAILY 01/23/21 01/23/21 clopidogrel 75 mg PO DAILY 01/23/21 01/23/21 ezetimibe 10 mg PO DAILY 01/23/21 01/23/21 loratadine 10 mg PO DAILY 01/23/21 01/23/21 B Complex-Vitamin B12 tablet PO DAILY 06/24/21 aspirin 81 mg DAILY 06/24/21 Allergies Allergy/AdvReac Type Severity Reaction Status Date / Time No Known Allergies Allergy Verified 06/24/21 09:22 Review of Systems Review of Systems: ROS unobtainable: Yes unobtainable due to mental status Constitutional: Constitutional: Denies fever(s) Gastrointestinal: Gastrointestinal: Denies diarrhea and Denies vomiting Musculoskeletal: Musculoskeletal: Denies deformity Comments: Several superficial skin tears to the elbows, and few bruises, both legs are wrapped below the knees Integumentary/Breasts: Skin/Breast: Denies rash and Denies wounds PMFSH Past Medical History Medical History Carotid artery disease Carotid artery sclerosis Hyperlipidemia Hypertension Surgical History Surgical History No significant past surgical history Family History Family History Mother Alzheimer disease Diabetes mellitus Heart disease Father Stomach ulcer Social History Social History Social History: The patient reports that she lives alone. She states that she has been for 30 years. She states she has been twice in her life. She has 2 children. 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 She has a walker and wheelchair at home but it sounds as if she ambulates around the house most the time by grabbing onto furniture. Code status: DNR Surrogate decision maker: Charlotte (daughter) Smoking status: Former smoker Additional smoking assessment comments: as a teenager Alcohol intake: never Substance use: never Gender identity (if verbalized by the patient): Female Spiritual care concerns: No Exam Const: General: no acute distress Orientation/consciousness: oriented to person, No oriented to place, No oriented to time, confusion and No lethargic Limitations: altered mental status HENMT: Head: other (Old right facial bruise) Ears: external ears normal General nose exam: no epistaxis Mouth: Yes moist mucous membranes Eyes: Conjunctivae: conjunctivae normal EOM: EOMs intact bilaterally Neck: Neck: normal visual inspection and other (Nontender) Resp: Effort & Inspection: no
[2021-06-24 13:25] LABS: Alanine Aminotransferase 43 U/L (4-35); Albumin Level 3.6 g/dL (3.5-5.1); Alkaline Phosphatase 84 U/L (38-126); Anion Gap 12 mmol/L (8-16); Aspartate Amino Transferase 51 U/L (14-36); Bilirubin,Total 1.5 mg/dL (0.2-1.3); Blood Urea Nitrogen 44 mg/dL (7-17); Calcium 9.2 mg/dL (8.4-10.2); Carbon Dioxide 20 mmol/L (22-30); Chloride 111 mmol/L (98-107); Estimated Glomerular Filt Rate 31; Glucose 119 mg/dL (65-110); Potassium 4.3 mmol/L (3.4-5.0); Sodium 143 mmol/L (137-145)
[2021-06-24 13:41] LABS: Troponin I 0.175 ng/mL (0.000-0.034)
[2021-06-24 14:27] LABS: Add Urine Microscopic? YES; Appearance Urine Cloudy (Clear); Bacteria Urine Trace /hpf; Bilirubin Urine Negative (Negative); Blood Urine 2+ (Negative); Color Urine Amber (Yellow); Glucose Urine UA Negative (Negative); Ketones Urine Trace mg/dL (Negative); Leukocyte Esterase Ur Negative LEU/UL (Negative); Mucus Urine Rare /lpf; Nitrate Urine Negative (Negative); Protein Urine 3+ mg/dL (Negative); Specific Grav Ur 1.029 (1.001-1.035); Squamous Epithelial Cell Urine Occasional /hpf (Few); WBC Urine 0-3 /hpf
--- NOTE | 2021-06-24 14:34 | PC.NURSE ---
Called lab and spoke to Radha to add on CK
[2021-06-24 14:40] LABS: INR 1.4; Prothrombin Time 16.6 Seconds (11.1-14.7)
[2021-06-24 14:53] LABS: Creatine Kinase 609 U/L (30-135)
--- NOTE | 2021-06-24 15:00 | PM.IMHP ---
H&P: HPI History of Present Illness Date/Time: 06/24/21 15:00 Chief Complaint: Found down, confused. Narrative: This is an 85-year-old female with probable dementia, congestive heart failure, paroxysmal atrial fibrillation/flutter, valvular heart disease, peripheral vascular disease, chronic kidney disease, and hypertension who presented to the emergency department earlier today via EMS from home for evaluation after she was found down, confused. She is unable to provide an accurate history and as such all of the following is obtained via a review of her electronic medical records as well as discussions with her [id number] Charlotte who is at bedside, with the patient's permission. The patient lives in her own home and typically ambulates with a walker. She can do some of her housework however family members come to visit daily and they do many of the chores for her and will cook for her and bring meals as well. She was last seen in her normal state of health at 22:30 last night by Charlotte and she was found on the living room floor by her granddaughter this morning around 09:00. The patient tells me that she was ?straightening up the blankets? when she somehow fell onto the floor and could not get herself up. She does not recall if she hit her head in the fall or if there was any loss of consciousness. She has multiple bruises and skin tears on her upper extremities and she complains of moderate pain in her right arm but she has no other complaints of pain. It is my understanding that she [facility] and is unclear how long she was on the floor. Family members report that she is much more confused today than she has ever been and they have noticed that her speech is slurred intermittently. She denies headache, vertigo, focal weakness, paresthesias, fever, chills, sweats, chest pain, shortness of breath, nausea, vomiting, diarrhea, and dysuria. Review of Systems Review of Systems: Twelve systems were reviewed but they are limited given her confusion. She stated no to all other questions asked of her aside from what was documented in the HPI. [facility] Past Medical History Medical History (Updated 06/25/21 @ 00:05 by Thea Sarmiento PA-C) Arthritis Carotid artery disease Right carotid artery stenosis. Chronic kidney disease Stage 3 to 4. Baseline creatinine ranges between 1.5 and 1.80. Congestive heart failure Echocardiogram on 01/24/2021 showed a mildly enlarged left ventricular chamber with a left ventricular systolic ejection fraction of 30 to 35%, moderately increased left ventricular wall thickness, abnormal diastolic function, mildly enlarged right ventricular chamber with reduced systolic function of the right ventricle. Coronary artery disease Dementia Hyperlipidemia Hypertension Moderate pulmonary hypertension Estimated pulmonary arterial systolic pressure was 51 mmHg on echocardiogram taken 01/24/2021. Osteopenia Paroxysmal atrial fibrillation Peripheral vascular disease Transient ischemic attack Valvular heart disease Echocardiogram on 01/24/2021 showed moderate tricuspid valve regurgitation and severe mitral valve regurgitation. Surgical History Surgical History (Updated 06/25/21 @ 00:00 by Thea Sarmiento PA-C) History of coronary artery bypass graft Family History Family History Mother Alzheimer disease Diabetes mellitus Heart disease Father Stomach ulcer Social History Social History (Updated 06/25/21 @ 00:05 by Thea Sarmiento PA-C) Social History: The patient reports that she lives alone and she has been for 30 years. She has 2 sons and many family members nearby that come help her out at home. 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 She has a walker and wheelchair at home but it sounds as if she ambulates around the house most the time by grabbing onto furniture and she has had several falls this year. She is a for
[2021-06-24] MEDS: LACTATED RINGERS 1,000 ML 999 ML IV CONT (15:30)
[2021-06-24] MEDS: ASPIRIN 81 MG CHEWABLE TABLET 324 MG PO (15:33)
[2021-06-24 16:06] LABS: Reflex Lactic Acid Yes or No Add Lactic
[2021-06-24 17:03] LABS: Troponin I 0.167 ng/mL (0.000-0.034)
--- NOTE | 2021-06-24 18:15 | PC.NURSE ---
Pt family member leaving at this time. Bed alarm placed on pt
--- NOTE | 2021-06-24 19:10 | PC.NURSE ---
Report given to LAURA Vasquez
[2021-06-24 20:05] LABS: Lactic Acid 2.7 mmol/L (0.7-2.1)
[2021-06-24 20:06] LABS: Magnesium 1.9 mg/dL (1.6-2.3)
[2021-06-24 20:14] LABS: NT Pro B Type Natriuretic Pept > 35000 pg/mL (5-100)
--- NOTE | 2021-06-24 20:18 | PC.NURSE ---
OSMAN faxed @[phone], RN called telephone report to Pita@ 2009
[2021-06-24] MEDS: LACTATED RINGERS 1,000 ML 150 ML IV CONT (21:56)
[2021-06-24] MEDS: FAMOTIDINE 20 MG/2 ML VIAL IV PUSH (21:57)
[2021-06-25] VITALS (17 sets, daily range): BP systolic 102–121; BP diastolic 54–88; PULSE 56–97; RESP 16–20; TEMP 36.3–36.7; O2SAT 92–98; BMI 26.2
[2021-06-25 00:40] LABS: Lactic Acid Reflex 2.3 mmol/L (0.7-2.1)
[2021-06-25 01:49] LABS: Anion Gap 11 mmol/L (8-16); Blood Urea Nitrogen 47 mg/dL (7-17); Calcium 8.8 mg/dL (8.4-10.2); Carbon Dioxide 19 mmol/L (22-30); Chloride 108 mmol/L (98-107); Creatine Kinase 612 U/L (30-135); Estimated CRCL calculation 20 ml/min; Estimated Glomerular Filt Rate 33; Glucose 128 mg/dL (65-110); Potassium 4.3 mmol/L (3.4-5.0); Sodium 138 mmol/L (137-145)
[2021-06-25 02:16] LABS: Troponin I 0.163 ng/mL (0.000-0.034)
[2021-06-25 02:51] LABS: Vitamin B12 > 1000.0 pg/mL (239-931)
[2021-06-25] MEDS: FUROSEMIDE INJ 40 MG/4 ML VIAL IV PUSH ×2 (03:15→16:47)
[2021-06-25] MEDS: HALOPERIDOL LACTATE 5 MG/ML VIAL IM (03:29)
--- NOTE | 2021-06-25 06:40 | ADMGEN ---
This patient, Yessenia Vega, was admitted to IMU Room 206-02 on 06/24/21 at 2050. Patient/family oriented to hospital policies and general routines including ID bracelet, bed and alarms, visiting hours, pain management, procedures, bathroom and other care routines, personal items, smoking policy, room service/diet, and visiting hours. Information on how to activate the Rapid Response Team has been discussed. Patient/Family are encouraged to report perceived risks to care and to ask questions if they do not understand what they are told or what they should do.
--- NOTE | 2021-06-25 10:20 | P.PNIM_ITS ---
Progress Note: A&P Assessment and Plan (1) Acute metabolic encephalopathy: Code(s): G93.41 - Metabolic encephalopathy Status: Acute Assessment and Plan: * patient is quite confused, likely has underlying dementia. * no findings to suggest underlying infection * brain CT did not show any acute intracranial findings. 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 (2) Rhabdomyolysis: Code(s): M62.82 - Rhabdomyolysis Status: Acute Assessment and Plan: * CK is mildly elevated, likely related to being down on the ground although the length of time is not known. * Given her lung exam and findings of congestion on chest x-ray she cannot be aggressively hydrated. * Continue to trend CK. (3) Elevated troponin: Code(s): R77.8 - Other specified abnormalities of plasma proteins Status: Acute Assessment and Plan: * She is not having any chest pain though given her history troponins will be trended. (4) Elevated LFTs: Code(s): R79.89 - Other specified abnormal findings of blood chemistry Status: Acute Assessment and Plan: * Likely related to mild rhabdomyolysis. Repeat LFTs in a.m.. If no improvemen t a further workup can be pursued. (5) Congestive heart failure: Code(s): I50.9 - Heart failure, unspecified Status: Acute Assessment and Plan: * peripheral edema and mild congestive changes on x-ray * 1 dose of Lasix * Trend volume status * BNP is >96115 * Start on 40mg IV lasix x 2 doses * Urinary catheter (6) Chronic kidney disease: Code(s): N18.9 - Chronic kidney disease, unspecified Status: Acute Assessment and Plan: * Creatinine is stable on review of previous labs and will be monitored. * Current 47.50 * Continue to trend (7) Coronary artery disease: Code(s): I25.10 - Atherosclerotic heart disease of [place] coronary artery without angina pectoris Status: Acute Assessment and Plan: * Continue statin and beta-johanna * continue with aspirin * hold Plavix for the next 24 hours or so given her recent fall, will restart in the am (8) Frequent falls: Code(s): R29.6 - Repeated falls Status: Acute Assessment and Plan: * Patient does have frequent falls * Probably needs some DC planning as it is not appropriate for her to be living by herself * Care coordination consult (9) Peripheral vascular disease: Code(s): I73.9 - Peripheral vascular disease, unspecified Status: Acute Assessment and Plan: * No acute evidence of limb ischemia. * Continue statin and aspirin. * Resume Plavix in the next 24 hours or so as long as there is no evidence of bleeding given her recent fall. (10) Paroxysmal atrial fibrillation: Code(s): I48.0 - Paroxysmal atrial fibrillation Status: Acute Assessment and Plan: * Currently in atrial fibrillation, rate controlled. * Chronic anticoagulation could be contraindicated due to frequent falling * HAS-BLED score is 5 which indicates other alternatives should be entertained * Chadvas score is 8 which puts her at high risk for stroke * On clopidogrel and aspirin at home * Plavix on hold for now (11) Dementia: Code(s): F03.90 - Unspecified dementia without behavioral disturbance Status: Acute Assessment and Plan: * Not offic
--- NOTE | 2021-06-25 10:20 | PM.IMPN ---
Progress Note: A&P Assessment and Plan (1) Acute metabolic encephalopathy: Code(s): G93.41 - Metabolic encephalopathy Status: Acute Assessment and Plan: patient is quite confused, likely has underlying dementia. no findings to suggest underlying infection brain CT did not show any acute intracranial findings. 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 (2) Rhabdomyolysis: Code(s): M62.82 - Rhabdomyolysis Status: Acute Assessment and Plan: CK is mildly elevated, likely related to being down on the ground although the length of time is not known. Given her lung exam and findings of congestion on chest x-ray she cannot be aggressively hydrated. Continue to trend CK. (3) Elevated troponin: Code(s): R77.8 - Other specified abnormalities of plasma proteins Status: Acute Assessment and Plan: She is not having any chest pain though given her history troponins will be trended. (4) Elevated LFTs: Code(s): R79.89 - Other specified abnormal findings of blood chemistry Status: Acute Assessment and Plan: Likely related to mild rhabdomyolysis. Repeat LFTs in a.m.. If no improvement a further workup can be pursued. (5) Congestive heart failure: Code(s): I50.9 - Heart failure, unspecified Status: Acute Assessment and Plan: peripheral edema and mild congestive changes on x-ray 1 dose of Lasix Trend volume status BNP is >06513 Start on 40mg IV lasix x 2 doses Urinary catheter (6) Chronic kidney disease: Code(s): N18.9 - Chronic kidney disease, unspecified Status: Acute Assessment and Plan: Creatinine is stable on review of previous labs and will be monitored. Current 47/1.50 Continue to trend (7) Coronary artery disease: Code(s): I25.10 - Atherosclerotic heart disease of [place] coronary artery without angina pectoris Status: Acute Assessment and Plan: Continue statin and beta-johanna continue with aspirin hold Plavix for the next 24 hours or so given her recent fall, will restart in the am (8) Frequent falls: Code(s): R29.6 - Repeated falls Status: Acute Assessment and Plan: Patient does have frequent falls Probably needs some DC planning as it is not appropriate for her to be living by herself Care coordination consult (9) Peripheral vascular disease: Code(s): I73.9 - Peripheral vascular disease, unspecified Status: Acute Assessment and Plan: No acute evidence of limb ischemia. Continue statin and aspirin. Resume Plavix in the next 24 hours or so as long as there is no evidence of bleeding given her recent fall. (10) Paroxysmal atrial fibrillation: Code(s): I48.0 - Paroxysmal atrial fibrillation Status: Acute Assessment and Plan: Currently in atrial fibrillation, rate controlled. Chronic anticoagulation could be contraindicated due to frequent falling HAS-BLED score is 5 which indicates other alternatives should be entertained Chadvas score is 8 which puts her at high risk for stroke On clopidogrel and aspirin at home Plavix on hold for now (11) Dementia: Code(s): F03.90 - Unspecified dementia without behavioral disturbance Status: Acute Assessment and Plan: Not officially diagnosed. Plan is as detailed above. Time Spent With Patient Time with patient: Greater than 35 minutes Subjective Date/time seen: 06/25/21 10:20 Interval history: Date/Time: 06/24/21 15:00 Narrative: This is an 85-year-old female with probable dementia, congestive heart failure, paroxysmal atrial fibrillation/flutter, valvular heart disease, peripheral vascular disease, chronic kidney disease, and hypertension who presented to the emergency department earlier today via EMS from home for evaluation after sh
[2021-06-25] MEDS: FAMOTIDINE 20 MG/2 ML VIAL IV PUSH ×2 (10:21→20:09)
[2021-06-25] MEDS: ASPIRIN 81 MG ENTERIC TABLET BY MOUTH (10:21)
[2021-06-25] MEDS: carvediloL 3.125 MG TABLET PO ×2 (10:21→20:09)
--- NOTE | 2021-06-25 12:13 | PCSTNOTE ---
Therapist attempted to see patient twice, was with other staff. When I returned, patient was asleep and would not arouse or keep eyes open for therapist to attempt a bedside swallow evaluation.
[2021-06-25 12:36] LABS: Basophils Percent Auto 0.2 % (0.2-1.2); Eosinophils Percent Auto 0.2 % (0-4.4); Hematocrit 35.7 % (37.0-47.0); Hemoglobin 11.5 g/dL (12.0-15.0); Immature Granulocyte Absolute 0.04 K/mm3 (0.00-0.031); Immature Granulocyte Percent A 0.4 % (0-0.5); Lymphocytes Absolute Auto 0.73 K/mm3 (0.9-3.2); Lymphocytes Percent Auto 7.5 % (18.3-44.2); Mean Corpuscular HGB Conc 32.2 g/dl (32-36); Mean Corpuscular Hemoglobin 28.7 pg (26-34); Mean Platelet Volume 11.1 fl (7.4-10.4); Monocytes Absolute Auto 0.9 K/mm3 (0.1-0.6); Monocytes Percent Auto 9.1 % (2.6-8.5); Neutrophils Percent Auto 82.6 % (45.5-73.1); Platelet Count Result 220 k/mm3 (150-375); Red Blood Count 4.01 M/mm3 (4.2-5.4); Red Cell Distribution Width 16.6 % (11.5-14.5); White Blood Count 9.7 K/mm3 (4.5-10.0)
[2021-06-25 12:50] LABS: Anion Gap 12 mmol/L (8-16); Blood Urea Nitrogen 46 mg/dL (7-17); Calcium 8.6 mg/dL (8.4-10.2); Carbon Dioxide 21 mmol/L (22-30); Chloride 105 mmol/L (98-107); Estimated CRCL calculation 20 ml/min; Estimated Glomerular Filt Rate 33; Glucose 126 mg/dL (65-110); Potassium 3.8 mmol/L (3.4-5.0); Sodium 138 mmol/L (137-145)
[2021-06-25 13:47] LABS: Burr Cells 2+ (NORMAL); Platelet Estimate Adequate (Adequate)
[2021-06-25 13:53] LABS: Schistocytes 1+ (NORMAL)
--- NOTE | 2021-06-25 14:21 | PCSTNOTE ---
Patient with other staff receiving other services; unable to be seen today.
--- NOTE | 2021-06-25 14:29 | PCPTNOTE ---
Attempted PT evaluation this afternoon, patient fatigued, will try back tomorrow.
[2021-06-25 19:40] LABS: Glucose Point of Care 159 mg/dl (65-105)
[2021-06-26] VITALS (11 sets, daily range): BP systolic 104–130; BP diastolic 65–83; PULSE 66–87; RESP 16–18; TEMP 36.6–37.3; O2SAT 96–98; BMI 22.6
[2021-06-26 05:08] LABS: Basophils Percent Auto 0.1 % (0.2-1.2); Eosinophils Absolute Auto 0.1 K/mm3 (0-0.3); Eosinophils Percent Auto 1.4 % (0-4.4); Hematocrit 32.4 % (37.0-47.0); Hemoglobin 10.4 g/dL (12.0-15.0); Immature Granulocyte Absolute 0.04 K/mm3 (0.00-0.031); Immature Granulocyte Percent A 0.5 % (0-0.5); Mean Corpuscular HGB Conc 32.1 g/dl (32-36); Mean Corpuscular Hemoglobin 28.3 pg (26-34); Mean Corpuscular Volume 88.3 fl (80-100); Mean Platelet Volume 11.2 fl (7.4-10.4); Monocytes Absolute Auto 0.7 K/mm3 (0.1-0.6); Monocytes Percent Auto 8.5 % (2.6-8.5); Neutrophils Absolute Auto 7.1 K/mm3 (1.3-6.7); Neutrophils Percent Auto 82.5 % (45.5-73.1); Platelet Count Result 202 k/mm3 (150-375); Red Blood Count 3.67 M/mm3 (4.2-5.4); Red Cell Distribution Width 16.8 % (11.5-14.5); White Blood Count 8.6 K/mm3 (4.5-10.0)
[2021-06-26 05:26] LABS: Alanine Aminotransferase 38 U/L (4-35); Albumin Level 3.2 g/dL (3.5-5.1); Alkaline Phosphatase 77 U/L (38-126); Anion Gap 10 mmol/L (8-16); Aspartate Amino Transferase 33 U/L (14-36); Bilirubin,Total 0.8 mg/dL (0.2-1.3); Blood Urea Nitrogen 46 mg/dL (7-17); CRP 1.6 mg/dL (<1.0); Calcium 8.1 mg/dL (8.4-10.2); Carbon Dioxide 23 mmol/L (22-30); Chloride 105 mmol/L (98-107); Estimated CRCL calculation 21 ml/min; Estimated Glomerular Filt Rate 36; Glucose 124 mg/dL (65-110); Magnesium 1.6 mg/dL (1.6-2.3); Phosphorus 4.1 mg/dL (2.5-4.5); Potassium 3.1 mmol/L (3.4-5.0); Sodium 138 mmol/L (137-145)
--- NOTE | 2021-06-26 06:30 | PC.NURSE ---
Over night, pt's HR went down to 30-40 and came back up to 70's-80's quickly several times and 1-2 times during day shift yesterday. She was asymptomatic and sleeping the majority of the times overnight. Yesterday, pt received 2 doses of Coreg which is her scheduled home dose but daughter was not positive pt was taking it as scheduled. IGNACIO Sidhu made aware.
--- NOTE | 2021-06-26 07:56 | P.CDI_ITS ---
CDI Query Clarification Request -CHF has been documented - peripheral edema and mild congestive changes on x-ray 1 dose of Lasix Trend volume status BNP is >49118 Start on 40mg IV lasix x 2 dose documented 1) - Echocardiogram on 01/24/2021 showed a mildly enlarged left ventricular chamber with a left ventricular systolic ejection fraction of 30 to 35%, moderately increased left ventricular wall thickness, abnormal diastolic function, mildly enlarged right ventricular chamber with reduced systolic function of the right ventricle documented in PMFSH -Lasix 40mg IV BID ordered Please further specify type and acuity of CHF: * Systolic *Acute * Diastolic *Chronic * Both systolic and diastolic *Acute on Chronic * Unable to determine *Unable to determine 2) -Rhabdomyolysis and likely related to being down on the ground although the length of time is not known has been documented Please further specify if rhabdomyolysis is: * Traumatic * Non traumatic * Unable to determine <Patria Chen RN - Last Filed: 06/26/21 09:02> Patient is in systolic and diastolic acute heart failure Rhabdomyolysis is nontraumatic <JESSA Gorman - Last Filed: 06/26/21 15:42>
[2021-06-26 08:44] LABS: Creatine Kinase 180 U/L (30-135)
[2021-06-26] MEDS: MAGNESIUM SULF 2 GM/WATER 50ML 2 GM/50 ML BAG IVPB (08:46)
[2021-06-26] MEDS: FUROSEMIDE INJ 40 MG/4 ML VIAL IV PUSH ×2 (08:46→17:37)
[2021-06-26] MEDS: carvediloL 3.125 MG TABLET PO ×2 (08:46→20:52)
[2021-06-26] MEDS: FAMOTIDINE 20 MG/2 ML VIAL IV PUSH ×2 (08:46→20:53)
[2021-06-26] MEDS: CLOPIDOGREL BISULFATE 75 MG TABLET PO (08:46)
[2021-06-26] MEDS: ASPIRIN 81 MG ENTERIC TABLET BY MOUTH (08:46)
[2021-06-26] MEDS: POTASSIUM CHLORIDE 20 MEQ TABLET 60 MEQ PO (08:46)
--- NOTE | 2021-06-26 09:43 | PCSTNOTE ---
Please refer to the Bedside Swallow Evaluation in the EMR. Please note, silent aspiration cannot be ruled out at bedside.
--- NOTE | 2021-06-26 12:30 | PM.IMPN ---
Progress Note: A&P Assessment and Plan (1) Acute metabolic encephalopathy: Code(s): G93.41 - Metabolic encephalopathy Status: Acute Assessment and Plan: patient is quite confused, likely has underlying dementia. no findings to suggest underlying infection brain CT did not show any acute intracranial findings. 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 (2) Rhabdomyolysis: Code(s): M62.82 - Rhabdomyolysis Status: Acute Assessment and Plan: CK is mildly elevated, likely related to being down on the ground although the length of time is not known. Seems to be a non traumatic event Given her lung exam and findings of congestion on chest x-ray she cannot be aggressively hydrated. Continue to trend CK. (3) Elevated troponin: Code(s): R77.8 - Other specified abnormalities of plasma proteins Status: Acute Assessment and Plan: She is not having any chest pain though given her history troponins will be trended. (4) Elevated LFTs: Code(s): R79.89 - Other specified abnormal findings of blood chemistry Status: Acute Assessment and Plan: Likely related to mild rhabdomyolysis. LFTs trending down If no improvement a further workup can be pursued. (5) Congestive heart failure: Code(s): I50.9 - Heart failure, unspecified Status: Acute Assessment and Plan: Echo from 01/24/2021 showed an EF of 30-35% with an abnormal diastolic function severe mitral valve regurg and moderate tricuspid regurg Patient is in acute systolic and diastolic heart failure peripheral edema and mild congestive changes on x-ray 1 dose of Lasix Trend volume status BNP is >90022 Start on 40mg IV lasix x 2 doses Urinary catheter Daily weights Strict I&Os (6) Chronic kidney disease: Code(s): N18.9 - Chronic kidney disease, unspecified Status: Acute Assessment and Plan: Creatinine is stable on review of previous labs and will be monitored. Current 46/1.40, GFR 36, creatinine clearance 21 Given lab values patient is on stage 3 chronic kidney disease Continue to trend (7) Coronary artery disease: Code(s): I25.10 - Atherosclerotic heart disease of [place] coronary artery without angina pectoris Status: Acute Assessment and Plan: Continue statin and beta-johanna continue with aspirin Plavix restarted (8) Frequent falls: Code(s): R29.6 - Repeated falls Status: Acute Assessment and Plan: Patient does have frequent falls Probably needs some DC planning as it is not appropriate for her to be living by herself Care coordination consult (9) Peripheral vascular disease: Code(s): I73.9 - Peripheral vascular disease, unspecified Status: Acute Assessment and Plan: No acute evidence of limb ischemia. Continue statin and aspirin. Plavix restarted (10) Paroxysmal atrial fibrillation: Code(s): I48.0 - Paroxysmal atrial fibrillation Status: Acute Assessment and Plan: Currently in atrial fibrillation, rate controlled. Chronic anticoagulation could be contraindicated due to frequent falling HAS-BLED score is 5 which indicates other alternatives should be entertained Chadvas score is 8 which puts her at high risk for stroke On clopidogrel and aspirin at home Plavix restarted (11) Dementia: Code(s): F03.90 - Unspecified dementia without behavioral disturbance Status: Acute Assessment and Plan: Not officially diagnosed. Plan is as detailed above. Time Spent With Patient Time with patient: Greater than 35 minutes Subjective Date/time seen: 06/26/21 1230 Interval history: Date/Time: 06/24/21 15:00 Narrative: This is an 85-year-old female with probable dementia, congestive heart failure, paroxysmal atrial fibrillation/flutt
--- NOTE | 2021-06-26 12:30 | P.PNIM_ITS ---
Progress Note: A&P Assessment and Plan (1) Acute metabolic encephalopathy: Code(s): G93.41 - Metabolic encephalopathy Status: Acute Assessment and Plan: * patient is quite confused, likely has underlying dementia. * no findings to suggest underlying infection * brain CT did not show any acute intracranial findings. 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 (2) Rhabdomyolysis: Code(s): M62.82 - Rhabdomyolysis Status: Acute Assessment and Plan: * CK is mildly elevated, likely related to being down on the ground although the length of time is not known. * Seems to be a non traumatic event * Given her lung exam and findings of congestion on chest x-ray she cannot be aggressively hydrated. * Continue to trend CK. (3) Elevated troponin: Code(s): R77.8 - Other specified abnormalities of plasma proteins Status: Acute Assessment and Plan: * She is not having any chest pain though given her history troponins will be trended. (4) Elevated LFTs: Code(s): R79.89 - Other specified abnormal findings of blood chemistry Status: Acute Assessment and Plan: * Likely related to mild rhabdomyolysis. * LFTs trending down * If no improvement a further workup can be pursued. (5) Congestive heart failure: Code(s): I50.9 - Heart failure, unspecified Status: Acute Assessment and Plan: * Echo from 01/24/2021 showed an EF of 30-35% with an abnormal diastolic function severe mitral valve regurg and moderate tricuspid regurg * Patient is in acute systolic and diastolic heart failure * peripheral edema and mild congestive changes on x-ray * 1 dose of Lasix * Trend volume status * BNP is >63948 * Start on 40mg IV lasix x 2 doses * Urinary catheter * Daily weights * Strict I&Os (6) Chronic kidney disease: Code(s): N18.9 - Chronic kidney disease, unspecified Status: Acute Assessment and Plan: * Creatinine is stable on review of previous labs and will be monitored. * Current 46/1.40, GFR 36, creatinine clearance 21 * Given lab values patient is on stage 3 chronic kidney disease * Continue to trend (7) Coronary artery disease: Code(s): I25.10 - Atherosclerotic heart disease of [place] coronary artery without angina pectoris Status: Acute Assessment and Plan: * Continue statin and beta-johanna * continue with aspirin * Plavix restarted (8) Frequent falls: Code(s): R29.6 - Repeated falls Status: Acute Assessment and Plan: * Patient does have frequent falls * Probably needs some DC planning as it is not appropriate for her to be living by herself * Care coordination consult (9) Peripheral vascular disease: Code(s): I73.9 - Peripheral vascular disease, unspecified Status: Acute Assessment and Plan: * No acute evidence of limb ischemia. * Continue statin and aspirin. * Plavix restarted (10) Paroxysmal atrial fibrillation: Code(s): I48.0 - Paroxysmal atrial fibrillation Status: Acute Assessment and Plan: * Currently in atrial fibrillation, rate controlled. * Chronic anticoagulation could be contraindicated due to frequent falling * HAS-BLED score is 5 which indicates other alternatives should be entertained * Chadvas score is 8 which puts her at high risk for stroke * On clopidogrel and aspiri
[2021-06-26] MEDS: ACETAMINOPHEN 325 MG TABLET 650 MG PO ×2 (13:07→20:59)
--- NOTE | 2021-06-26 16:47 | PC.NURSE ---
On 06/26/21, the student, Clemencia [facility]ILLAS [facility], provided care and completed [email or web address] documentation on this patient. I have reviewed the student's documentation and agree with the findings.
--- NOTE | 2021-06-26 18:47 | PC.NURSE ---
Report given to LAURA Worrell @ [phone]. Pt will be moved to room 256 after room is cleaned.
[2021-06-27] VITALS (11 sets, daily range): BP systolic 122–156; BP diastolic 87–89; PULSE 54–93; RESP 16–20; TEMP 36.7–36.8; O2SAT 95–98
[2021-06-27] MEDS: carvediloL 3.125 MG TABLET PO (09:13)
[2021-06-27] MEDS: ASPIRIN 81 MG ENTERIC TABLET BY MOUTH (09:13)
[2021-06-27] MEDS: MAGNESIUM SULF 4 GM/WATER100ML 4 GM/100 ML BAG IVPB (09:13)
[2021-06-27] MEDS: POTASSIUM CHLORIDE 20 MEQ TABLET 60 MEQ PO (09:13)
[2021-06-27] MEDS: CLOPIDOGREL BISULFATE 75 MG TABLET PO (09:15)
[2021-06-27] MEDS: FAMOTIDINE 20 MG/2 ML VIAL IV PUSH ×2 (09:15→23:27)
--- NOTE | 2021-06-27 09:40 | P.PNIM_ITS ---
Progress Note: A&P Assessment and Plan (1) Acute metabolic encephalopathy: Code(s): G93.41 - Metabolic encephalopathy Status: Acute Assessment and Plan: * Still confused but very pleasant * no findings to suggest underlying infection * brain CT did not show any acute intracranial findings. 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 (2) Rhabdomyolysis: Code(s): M62.82 - Rhabdomyolysis Status: Acute Assessment and Plan: * CK is mildly elevated, likely related to being down on the ground although the length of time is not known. * CK on 06/26/21 was 180 * Seems to be a non traumatic event * Given her lung exam and findings of congestion on chest x-ray she cannot be aggressively hydrated. * Continue to trend CK. (3) Elevated troponin: Code(s): R77.8 - Other specified abnormalities of plasma proteins Status: Acute Assessment and Plan: * She is not having any chest pain though given her history troponins will be trended. (4) Elevated LFTs: Code(s): R79.89 - Other specified abnormal findings of blood chemistry Status: Acute Assessment and Plan: * Likely related to mild rhabdomyolysis. * LFTs trending down * If no improvement a further workup can be pursued. (5) Congestive heart failure: Code(s): I50.9 - Heart failure, unspecified Status: Acute Assessment and Plan: * Effectively diuresed * Echo from 01/24/2021 showed an EF of 30-35% with an abnormal diastolic function severe mitral valve regurg and moderate tricuspid regurg * Patient is in acute systolic and diastolic heart failure * peripheral edema and mild congestive changes on x-ray * Trend volume status * Repeat BNP in the am * Furosemide 40mg PO daily * Daily weights * Strict I&Os (6) Chronic kidney disease: Code(s): N18.9 - Chronic kidney disease, unspecified Status: Acute Assessment and Plan: * Creatinine is stable on review of previous labs and will be monitored. * Current 46/1.40, GFR 36, creatinine clearance 21 * Given lab values patient is on stage 3 chronic kidney disease * Continue to trend (7) Coronary artery disease: Code(s): I25.10 - Atherosclerotic heart disease of [place] coronary artery without angina pectoris Status: Acute Assessment and Plan: * Continue statin and beta-johanna * continue with aspirin * Plavix restarted (8) Frequent falls: Code(s): R29.6 - Repeated falls Status: Acute Assessment and Plan: * Patient does have frequent falls * Probably needs some DC planning as it is not appropriate for her to be living by herself * Care coordination consult (9) Peripheral vascular disease: Code(s): I73.9 - Peripheral vascular disease, unspecified Status: Acute Assessment and Plan: * No acute evidence of limb ischemia. * Continue statin and aspirin. * Plavix restarted (10) Paroxysmal atrial fibrillation: Code(s): I48.0 - Paroxysmal atrial fibrillation Status: Acute Assessment and Plan: * Currently in atrial fibrillation, rate controlled. * Chronic anticoagulation could be contraindicated due to frequent falling * HAS-BLED score is 5 which indicates other alternatives should be entertained * Chadvas score is 8 which puts her at high risk for stroke * On clopidogrel and aspirin at home
--- NOTE | 2021-06-27 09:40 | PM.IMPN ---
Progress Note: A&P Assessment and Plan (1) Acute metabolic encephalopathy: Code(s): G93.41 - Metabolic encephalopathy Status: Acute Assessment and Plan: Still confused but very pleasant no findings to suggest underlying infection brain CT did not show any acute intracranial findings. 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 (2) Rhabdomyolysis: Code(s): M62.82 - Rhabdomyolysis Status: Acute Assessment and Plan: CK is mildly elevated, likely related to being down on the ground although the length of time is not known. CK on 06/26/21 was 180 Seems to be a non traumatic event Given her lung exam and findings of congestion on chest x-ray she cannot be aggressively hydrated. Continue to trend CK. (3) Elevated troponin: Code(s): R77.8 - Other specified abnormalities of plasma proteins Status: Acute Assessment and Plan: She is not having any chest pain though given her history troponins will be trended. (4) Elevated LFTs: Code(s): R79.89 - Other specified abnormal findings of blood chemistry Status: Acute Assessment and Plan: Likely related to mild rhabdomyolysis. LFTs trending down If no improvement a further workup can be pursued. (5) Congestive heart failure: Code(s): I50.9 - Heart failure, unspecified Status: Acute Assessment and Plan: Effectively diuresed Echo from 01/24/2021 showed an EF of 30-35% with an abnormal diastolic function severe mitral valve regurg and moderate tricuspid regurg Patient is in acute systolic and diastolic heart failure peripheral edema and mild congestive changes on x-ray Trend volume status Repeat BNP in the am Furosemide 40mg PO daily Daily weights Strict I&Os (6) Chronic kidney disease: Code(s): N18.9 - Chronic kidney disease, unspecified Status: Acute Assessment and Plan: Creatinine is stable on review of previous labs and will be monitored. Current 46/1.40, GFR 36, creatinine clearance 21 Given lab values patient is on stage 3 chronic kidney disease Continue to trend (7) Coronary artery disease: Code(s): I25.10 - Atherosclerotic heart disease of [place] coronary artery without angina pectoris Status: Acute Assessment and Plan: Continue statin and beta-johanna continue with aspirin Plavix restarted (8) Frequent falls: Code(s): R29.6 - Repeated falls Status: Acute Assessment and Plan: Patient does have frequent falls Probably needs some DC planning as it is not appropriate for her to be living by herself Care coordination consult (9) Peripheral vascular disease: Code(s): I73.9 - Peripheral vascular disease, unspecified Status: Acute Assessment and Plan: No acute evidence of limb ischemia. Continue statin and aspirin. Plavix restarted (10) Paroxysmal atrial fibrillation: Code(s): I48.0 - Paroxysmal atrial fibrillation Status: Acute Assessment and Plan: Currently in atrial fibrillation, rate controlled. Chronic anticoagulation could be contraindicated due to frequent falling HAS-BLED score is 5 which indicates other alternatives should be entertained Chadvas score is 8 which puts her at high risk for stroke On clopidogrel and aspirin at home Plavix restarted (11) Dementia: Code(s): F03.90 - Unspecified dementia without behavioral disturbance Status: Acute Assessment and Plan: Not officially diagnosed. Plan is as detailed above. (12) Hypomagnesemia: Code(s): E83.42 - Hypomagnesemia Status: Acute Assessment and Plan: Mg 1.6 4gm IV replacement Trend labs replace as needed Time Spent With Patient Time with patient: Greater than 35 minutes Subjective Date/time seen: 06/27/21 14:20 I
[2021-06-27] MEDS: carvediloL 1.56 MG TABLET PO (23:18)
[2021-06-28] VITALS (11 sets, daily range): BP systolic 108–123; BP diastolic 81–86; PULSE 63–96; RESP 16; TEMP 36.4–36.7; O2SAT 94–100
[2021-06-28 07:34] LABS: Basophils Percent Auto 0.2 % (0.2-1.2); Eosinophils Absolute Auto 0.1 K/mm3 (0-0.3); Hematocrit 36.5 % (37.0-47.0); Immature Granulocyte Absolute 0.04 K/mm3 (0.00-0.031); Immature Granulocyte Percent A 0.4 % (0-0.5); Lymphocytes Absolute Auto 0.65 K/mm3 (0.9-3.2); Lymphocytes Percent Auto 6.4 % (18.3-44.2); Mean Corpuscular HGB Conc 32.9 g/dl (32-36); Mean Corpuscular Hemoglobin 28.9 pg (26-34); Mean Platelet Volume 10.9 fl (7.4-10.4); Monocytes Absolute Auto 0.8 K/mm3 (0.1-0.6); Neutrophils Absolute Auto 8.5 K/mm3 (1.3-6.7); Platelet Count Result 217 k/mm3 (150-375); Red Blood Count 4.15 M/mm3 (4.2-5.4); Red Cell Distribution Width 16.7 % (11.5-14.5); White Blood Count 10.1 K/mm3 (4.5-10.0)
[2021-06-28 07:48] LABS: Alanine Aminotransferase 36 U/L (4-35); Albumin Level 3.3 g/dL (3.5-5.1); Alkaline Phosphatase 80 U/L (38-126); Anion Gap 7 mmol/L (8-16); Aspartate Amino Transferase 28 U/L (14-36); Bilirubin,Total 1.2 mg/dL (0.2-1.3); Blood Urea Nitrogen 41 mg/dL (7-17); Calcium 8.3 mg/dL (8.4-10.2); Carbon Dioxide 29 mmol/L (22-30); Chloride 102 mmol/L (98-107); Estimated CRCL calculation 25 ml/min; Estimated Glomerular Filt Rate 43; Glucose 129 mg/dL (65-110); Magnesium 2.4 mg/dL (1.6-2.3); Potassium 3.9 mmol/L (3.4-5.0); Sodium 138 mmol/L (137-145)
--- NOTE | 2021-06-28 08:00 | P.PNIM_ITS ---
Progress Note: A&P Assessment and Plan (1) Acute metabolic encephalopathy: Code(s): G93.41 - Metabolic encephalopathy Status: Acute Assessment and Plan: * Still confused but very pleasant * Chest xray showed possible aspiration PNA * brain CT did not show any acute intracranial findings. 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 (2) Aspiration pneumonia: Code(s): J69.0 - Pneumonitis due to inhalation of food and vomit Status: Acute Assessment and Plan: * Chest xray: pulmonary infiltrates in the right mid and and bilateral lower lobe, aspiration PNA vs Fluid overload * Will get with ST about maybe a modified swallow * Added Zosyn * try to get sputum culture * WBC did elevate to 10.1 (3) Congestive heart failure: Code(s): I50.9 - Heart failure, unspecified Status: Acute Assessment and Plan: * Effectively diuresed, will continue * Echo from 01/24/2021 showed an EF of 30-35% with an abnormal diastolic function severe mitral valve regurg and moderate tricuspid regurg * Patient is in acute systolic and diastolic heart failure * peripheral edema and mild congestive changes on x-ray * Trend volume status * Repeat BNP >70915 * Furosemide 40mg PO daily, changed to IV for 4 doses * Daily weights * Strict I&Os (4) Chronic kidney disease: Code(s): N18.9 - Chronic kidney disease, unspecified Status: Acute Assessment and Plan: * Creatinine is stable on review of previous labs and will be monitored. * Current 41/1.20 GFR 36, creatinine clearance 25 * Given lab values patient is on stage 3 chronic kidney disease * Continue to trend (5) Coronary artery disease: Code(s): I25.10 - Atherosclerotic heart disease of [place] coronary artery without angina pectoris Status: Acute Assessment and Plan: * Continue statin and beta-johanna * continue with aspirin * Plavix restarted (6) Frequent falls: Code(s): R29.6 - Repeated falls Status: Acute Assessment and Plan: * Patient does have frequent falls * Probably needs some DC planning as it is not appropriate for her to be living by herself * Care coordination consult (7) Peripheral vascular disease: Code(s): I73.9 - Peripheral vascular disease, unspecified Status: Acute Assessment and Plan: * No acute evidence of limb ischemia. * Continue statin and aspirin. * Plavix restarted (8) Paroxysmal atrial fibrillation: Code(s): I48.0 - Paroxysmal atrial fibrillation Status: Acute Assessment and Plan: * Currently in atrial fibrillation, rate controlled. * Chronic anticoagulation could be contraindicated due to frequent falling * HAS-BLED score is 5 which indicates other alternatives should be entertained * Chadvas score is 8 which puts her at high risk for stroke * On clopidogrel and aspirin at home * Plavix restarted (9) Dementia: Code(s): F03.90 - Unspecified dementia without behavioral disturbance Status: Acute Assessment and Plan: * Not officially diagnosed. Plan is as detailed above. (10) Hypomagnesemia: Code(s): E83.42 - Hypomagnesemia Status: Acute Assessment and Plan: * Mg 2.4 * Trend labs * replace as needed (11) Rhabdomyolysis: Code(s): M62.82 - Rhabdomyolysis Status: Acute Assessm
--- NOTE | 2021-06-28 08:00 | PM.IMPN ---
Progress Note: A&P Assessment and Plan (1) Acute metabolic encephalopathy: Code(s): G93.41 - Metabolic encephalopathy Status: Acute Assessment and Plan: Still confused but very pleasant Chest xray showed possible aspiration PNA brain CT did not show any acute intracranial findings. 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 (2) Aspiration pneumonia: Code(s): J69.0 - Pneumonitis due to inhalation of food and vomit Status: Acute Assessment and Plan: Chest xray: pulmonary infiltrates in the right mid and and bilateral lower lobe, aspiration PNA vs Fluid overload Will get with ST about maybe a modified swallow Added Zosyn try to get sputum culture WBC did elevate to 10.1 (3) Congestive heart failure: Code(s): I50.9 - Heart failure, unspecified Status: Acute Assessment and Plan: Effectively diuresed, will continue Echo from 01/24/2021 showed an EF of 30-35% with an abnormal diastolic function severe mitral valve regurg and moderate tricuspid regurg Patient is in acute systolic and diastolic heart failure peripheral edema and mild congestive changes on x-ray Trend volume status Repeat BNP >98743 Furosemide 40mg PO daily, changed to IV for 4 doses Daily weights Strict I&Os (4) Chronic kidney disease: Code(s): N18.9 - Chronic kidney disease, unspecified Status: Acute Assessment and Plan: Creatinine is stable on review of previous labs and will be monitored. Current 41/1.20 GFR 36, creatinine clearance 25 Given lab values patient is on stage 3 chronic kidney disease Continue to trend (5) Coronary artery disease: Code(s): I25.10 - Atherosclerotic heart disease of [place] coronary artery without angina pectoris Status: Acute Assessment and Plan: Continue statin and beta-johanna continue with aspirin Plavix restarted (6) Frequent falls: Code(s): R29.6 - Repeated falls Status: Acute Assessment and Plan: Patient does have frequent falls Probably needs some DC planning as it is not appropriate for her to be living by herself Care coordination consult (7) Peripheral vascular disease: Code(s): I73.9 - Peripheral vascular disease, unspecified Status: Acute Assessment and Plan: No acute evidence of limb ischemia. Continue statin and aspirin. Plavix restarted (8) Paroxysmal atrial fibrillation: Code(s): I48.0 - Paroxysmal atrial fibrillation Status: Acute Assessment and Plan: Currently in atrial fibrillation, rate controlled. Chronic anticoagulation could be contraindicated due to frequent falling HAS-BLED score is 5 which indicates other alternatives should be entertained Chadvas score is 8 which puts her at high risk for stroke On clopidogrel and aspirin at home Plavix restarted (9) Dementia: Code(s): F03.90 - Unspecified dementia without behavioral disturbance Status: Acute Assessment and Plan: Not officially diagnosed. Plan is as detailed above. (10) Hypomagnesemia: Code(s): E83.42 - Hypomagnesemia Status: Acute Assessment and Plan: Mg 2.4 Trend labs replace as needed (11) Rhabdomyolysis: Code(s): M62.82 - Rhabdomyolysis Status: Acute Assessment and Plan: CK is mildly elevated, likely related to being down on the ground although the length of time is not known. CK on 06/26/21 was 180 Seems to be a non traumatic event Given her lung exam and findings of congestion on chest x-ray she cannot be aggressively hydrated. Continue to trend CK. Time Spent With Patient Time with patient: Greater than 35 minutes Subjective Date/time seen: 06/28/21 08:00 Interval history: Date/Time: 06/24/21 15:00 Narrative: This is an 85-year-old female with probable dementia, congestive he
[2021-06-28] MEDS: carvediloL 1.56 MG TABLET PO ×2 (09:21→20:09)
[2021-06-28] MEDS: FUROSEMIDE 40 MG TABLET PO (09:22)
[2021-06-28] MEDS: ASPIRIN 81 MG ENTERIC TABLET BY MOUTH (09:24)
[2021-06-28] MEDS: CLOPIDOGREL BISULFATE 75 MG TABLET PO (09:24)
[2021-06-28] MEDS: FAMOTIDINE 20 MG/2 ML VIAL IV PUSH ×2 (09:25→20:09)
--- NOTE | 2021-06-28 10:18 | PCPTNOTE ---
Attempted to see patient for PT at this time, however patient refused. Explained the importance of therapy, patient continued to refuse and closed her eyes and would not acknowledge therapist.
[2021-06-28 10:51] LABS: Add Urine Microscopic? YES; Appearance Urine Cloudy (Clear); Bacteria Urine Trace /hpf; Bilirubin Urine Negative (Negative); Blood Urine 3+ (Negative); Budding Yeast Urine Present /hpf; Color Urine Yellow (Yellow); Glucose Urine UA Negative (Negative); Ketones Urine Negative (Negative); Leukocyte Esterase Ur Negative LEU/UL (NEGATIVE); Nitrate Urine Negative (Negative); Protein Urine 2+ mg/dL (Negative); RBC Urine >75 /hpf (0-2); Specific Grav Ur 1.021 (1.001-1.035); Squamous Epithelial Cell Urine Few /hpf (Few); Urobilinogen Urine Negative mg/dL (<2.0)
--- NOTE | 2021-06-28 10:52 | PCNFU ---
Addendum entered by Jaja Coleman RD, LDN 06/28/21 11:25: Bowel Motility: +BM 06/28 Original Note: Nutrition Follow-Up Complete: Inadequate Oral Intake as related to AMS as evidenced by NPO Goal: Meet estimated nutritional needs Progressing towards goal, we will continue current goal. Pt current nutrition is regular. Last recorded weight is 55.9 kg. Bowel Motility: +BM 06/26 Labs Reviewed: Hct 36.5, Alb 3.3, GFR 43, BUN 41, Cr 120, Glu 129 Meds Noted:Coreg, plavix, lasix Skin: edema Additional Notes: Per chart pt is eating 10 and 25% of meals. RN stated that pt did not like breakfast of scrambled eggs and oatmeal. RN stated they ordered pancakes which appeared to better tolerated by pt. Will continue to monitor. Will monitor every 3 days.
[2021-06-28 13:17] LABS: NT Pro B Type Natriuretic Pept > 35000 pg/mL (5-100)
[2021-06-28] MEDS: FUROSEMIDE INJ 40 MG/4 ML VIAL IV PUSH (16:22)
[2021-06-29] VITALS (11 sets, daily range): BP systolic 116–157; BP diastolic 55–94; PULSE 65–80; RESP 18–20; TEMP 36–36.6; O2SAT 95–99
[2021-06-29] MEDS: carvediloL 1.56 MG TABLET PO ×2 (08:09→20:39)
[2021-06-29] MEDS: CLOPIDOGREL BISULFATE 75 MG TABLET PO (08:09)
[2021-06-29] MEDS: ASPIRIN 81 MG ENTERIC TABLET BY MOUTH (08:10)
[2021-06-29] MEDS: FAMOTIDINE 20 MG/2 ML VIAL IV PUSH ×2 (08:10→20:39)
[2021-06-29] MEDS: FUROSEMIDE INJ 40 MG/4 ML VIAL IV PUSH ×2 (08:10→17:10)
[2021-06-29 08:20] LABS: Basophils Percent Auto 0.1 % (0.2-1.2); Eosinophils Absolute Auto 0.2 K/mm3 (0-0.3); Hematocrit 34.9 % (37.0-47.0); Hemoglobin 11.3 g/dL (12.0-15.0); Immature Granulocyte Absolute 0.03 K/mm3 (0.00-0.031); Immature Granulocyte Percent A 0.4 % (0-0.5); Lymphocytes Absolute Auto 0.67 K/mm3 (0.9-3.2); Lymphocytes Percent Auto 8.3 % (18.3-44.2); Mean Corpuscular HGB Conc 32.4 g/dl (32-36); Mean Corpuscular Hemoglobin 28.2 pg (26-34); Mean Platelet Volume 11.6 fl (7.4-10.4); Monocytes Absolute Auto 0.7 K/mm3 (0.1-0.6); Monocytes Percent Auto 8.8 % (2.6-8.5); Neutrophils Absolute Auto 6.5 K/mm3 (1.3-6.7); Neutrophils Percent Auto 80.4 % (45.5-73.1); Platelet Count Result 212 k/mm3 (150-375); Red Blood Count 4.01 M/mm3 (4.2-5.4); Red Cell Distribution Width 16.3 % (11.5-14.5); White Blood Count 8.1 K/mm3 (4.5-10.0)
[2021-06-29 08:22] LABS: Alanine Aminotransferase 29 U/L (4-35); Albumin Level 3.2 g/dL (3.5-5.1); Alkaline Phosphatase 76 U/L (38-126); Anion Gap 6 mmol/L (8-16); Aspartate Amino Transferase 22 U/L (14-36); Bilirubin,Total 1.3 mg/dL (0.2-1.3); Blood Urea Nitrogen 36 mg/dL (7-17); Calcium 8.2 mg/dL (8.4-10.2); Carbon Dioxide 31 mmol/L (22-30); Chloride 98 mmol/L (98-107); Estimated CRCL calculation 25 ml/min; Estimated Glomerular Filt Rate 43; Glucose 135 mg/dL (65-110); Sodium 135 mmol/L (137-145)
[2021-06-29] MEDS: ACETAMINOPHEN 325 MG TABLET 650 MG PO (08:30)
--- NOTE | 2021-06-29 09:40 | PM.IMPN ---
Progress Note: A&P Assessment and Plan (1) Acute metabolic encephalopathy: Code(s): G93.41 - Metabolic encephalopathy Status: Acute Assessment and Plan: Still confused, upbeat, and sitting in a chair Chest xray showed possible aspiration PNA brain CT did not show any acute intracranial findings. 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 (2) Aspiration pneumonia: Code(s): J69.0 - Pneumonitis due to inhalation of food and vomit Status: Acute Assessment and Plan: Chest xray: pulmonary infiltrates in the right mid and and bilateral lower lobe, aspiration PNA vs Fluid overload Will get with ST about maybe a modified swallow Added Zosyn try to get sputum culture WBC did elevate to 8.1 (3) Congestive heart failure: Code(s): I50.9 - Heart failure, unspecified Status: Acute Assessment and Plan: Effectively diuresed, will continue Echo from 01/24/2021 showed an EF of 30-35% with an abnormal diastolic function severe mitral valve regurg and moderate tricuspid regurg Patient is in acute systolic and diastolic heart failure peripheral edema and mild congestive changes on x-ray Trend volume status Repeat BNP >29457 Furosemide 40mg PO daily, changed to IV for 4 doses Daily weights Strict I&Os (4) Chronic kidney disease: Code(s): N18.9 - Chronic kidney disease, unspecified Status: Acute Assessment and Plan: Creatinine is stable on review of previous labs and will be monitored. Current 36/1.20 GFR 43, creatinine clearance 25 Given lab values patient is on stage 3 chronic kidney disease Continue to trend (5) Coronary artery disease: Code(s): I25.10 - Atherosclerotic heart disease of [place] coronary artery without angina pectoris Status: Acute Assessment and Plan: Continue statin and beta-johanna continue with aspirin Plavix restarted (6) Frequent falls: Code(s): R29.6 - Repeated falls Status: Acute Assessment and Plan: Patient does have frequent falls Probably needs some DC planning as it is not appropriate for her to be living by herself Care coordination consult (7) Peripheral vascular disease: Code(s): I73.9 - Peripheral vascular disease, unspecified Status: Acute Assessment and Plan: No acute evidence of limb ischemia. Continue statin and aspirin. Plavix restarted (8) Paroxysmal atrial fibrillation: Code(s): I48.0 - Paroxysmal atrial fibrillation Status: Acute Assessment and Plan: Currently in atrial fibrillation, rate controlled. Chronic anticoagulation could be contraindicated due to frequent falling HAS-BLED score is 5 which indicates other alternatives should be entertained Chadvas score is 8 which puts her at high risk for stroke On clopidogrel and aspirin at home Plavix restarted (9) Dementia: Code(s): F03.90 - Unspecified dementia without behavioral disturbance Status: Acute Assessment and Plan: Not officially diagnosed. Plan is as detailed above. (10) Hypomagnesemia: Code(s): E83.42 - Hypomagnesemia Status: Acute Assessment and Plan: Mg 2.0 Trend labs replace as needed Time Spent With Patient Time with patient: Greater than 35 minutes Subjective Date/time seen: 06/29/21 0940 Interval history: Date/Time: 06/24/21 15:00 Narrative: This is an 85-year-old female with probable dementia, congestive heart failure, paroxysmal atrial fibrillation/flutter, valvular heart disease, peripheral vascular disease, chronic kidney disease, and hypertension who presented to the emergency department earlier today via EMS from home for evaluation after she was found down, confused. She is unable to provide an accurate history and as such all of the following is obtained via a review of her electronic medi
--- NOTE | 2021-06-29 09:40 | P.PNIM_ITS ---
Progress Note: A&P Assessment and Plan (1) Acute metabolic encephalopathy: Code(s): G93.41 - Metabolic encephalopathy Status: Acute Assessment and Plan: * Still confused, upbeat, and sitting in a chair * Chest xray showed possible aspiration PNA * brain CT did not show any acute intracranial findings. 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 (2) Aspiration pneumonia: Code(s): J69.0 - Pneumonitis due to inhalation of food and vomit Status: Acute Assessment and Plan: * Chest xray: pulmonary infiltrates in the right mid and and bilateral lower lobe, aspiration PNA vs Fluid overload * Will get with ST about maybe a modified swallow * Added Zosyn * try to get sputum culture * WBC did elevate to 8.1 (3) Congestive heart failure: Code(s): I50.9 - Heart failure, unspecified Status: Acute Assessment and Plan: * Effectively diuresed, will continue * Echo from 01/24/2021 showed an EF of 30-35% with an abnormal diastolic function severe mitral valve regurg and moderate tricuspid regurg * Patient is in acute systolic and diastolic heart failure * peripheral edema and mild congestive changes on x-ray * Trend volume status * Repeat BNP >83557 * Furosemide 40mg PO daily, changed to IV for 4 doses * Daily weights * Strict I&Os (4) Chronic kidney disease: Code(s): N18.9 - Chronic kidney disease, unspecified Status: Acute Assessment and Plan: * Creatinine is stable on review of previous labs and will be monitored. * Current 36/1.20 GFR 43, creatinine clearance 25 * Given lab values patient is on stage 3 chronic kidney disease * Continue to trend (5) Coronary artery disease: Code(s): I25.10 - Atherosclerotic heart disease of [place] coronary artery without angina pectoris Status: Acute Assessment and Plan: * Continue statin and beta-johanna * continue with aspirin * Plavix restarted (6) Frequent falls: Code(s): R29.6 - Repeated falls Status: Acute Assessment and Plan: * Patient does have frequent falls * Probably needs some DC planning as it is not appropriate for her to be living by herself * Care coordination consult (7) Peripheral vascular disease: Code(s): I73.9 - Peripheral vascular disease, unspecified Status: Acute Assessment and Plan: * No acute evidence of limb ischemia. * Continue statin and aspirin. * Plavix restarted (8) Paroxysmal atrial fibrillation: Code(s): I48.0 - Paroxysmal atrial fibrillation Status: Acute Assessment and Plan: * Currently in atrial fibrillation, rate controlled. * Chronic anticoagulation could be contraindicated due to frequent falling * HAS-BLED score is 5 which indicates other alternatives should be entertained * Chadvas score is 8 which puts her at high risk for stroke * On clopidogrel and aspirin at home * Plavix restarted (9) Dementia: Code(s): F03.90 - Unspecified dementia without behavioral disturbance Status: Acute Assessment and Plan: * Not officially diagnosed. Plan is as detailed above. (10) Hypomagnesemia: Code(s): E83.42 - Hypomagnesemia Status: Acute Assessment and Plan: * Mg 2.0 * Trend labs * replace as needed Time Spent With Patient Time with patient: Greater than 35 minutes Subjective D
--- NOTE | 2021-06-29 11:01 | PCOTNOTE ---
Attempted to see pt for occupational therapy tx, however, pt was distracted and repeatedly asked for the nurse to speak with her. When therapist stated that she can talk to the RN after tx, pt refused to participate with therapy and states that she will not do anything until she speaks with the RN. RN was made aware of pt's refusal. Will continue per poc duration/frequency tomorrow.
[2021-06-29] MEDS: POTASSIUM CHLORIDE 20 MEQ TABLET 40 MEQ PO (14:06)
[2021-06-30] VITALS (7 sets, daily range): BP systolic 124–163; BP diastolic 68–77; PULSE 64–87; RESP 16; TEMP 36.3–36.4; O2SAT 95
[2021-06-30 06:06] LABS: Basophils Percent Auto 0.2 % (0.2-1.2); Eosinophils Absolute Auto 0.3 K/mm3 (0-0.3); Eosinophils Percent Auto 2.7 % (0-4.4); Hematocrit 36.9 % (37.0-47.0); Hemoglobin 11.8 g/dL (12.0-15.0); Immature Granulocyte Absolute 0.04 K/mm3 (0.00-0.031); Immature Granulocyte Percent A 0.4 % (0-0.5); Lymphocytes Absolute Auto 0.96 K/mm3 (0.9-3.2); Lymphocytes Percent Auto 10.1 % (18.3-44.2); Mean Corpuscular Hemoglobin 28.6 pg (26-34); Mean Corpuscular Volume 89.3 fl (80-100); Mean Platelet Volume 11.4 fl (7.4-10.4); Neutrophils Absolute Auto 7.3 K/mm3 (1.3-6.7); Neutrophils Percent Auto 76.6 % (45.5-73.1); Platelet Count Result 228 k/mm3 (150-375); Red Blood Count 4.13 M/mm3 (4.2-5.4); Red Cell Distribution Width 16.6 % (11.5-14.5); White Blood Count 9.5 K/mm3 (4.5-10.0)
[2021-06-30 06:36] LABS: Alanine Aminotransferase 31 U/L (4-35); Albumin Level 3.4 g/dL (3.5-5.1); Alkaline Phosphatase 75 U/L (38-126); Anion Gap 5 mmol/L (8-16); Aspartate Amino Transferase 27 U/L (14-36); Bilirubin,Total 1.5 mg/dL (0.2-1.3); Blood Urea Nitrogen 35 mg/dL (7-17); Calcium 8.4 mg/dL (8.4-10.2); Carbon Dioxide 34 mmol/L (22-30); Chloride 95 mmol/L (98-107); Estimated CRCL calculation 23 ml/min; Estimated Glomerular Filt Rate 39; Glucose 126 mg/dL (65-110); Magnesium 1.7 mg/dL (1.6-2.3); Potassium 3.4 mmol/L (3.4-5.0); Sodium 134 mmol/L (137-145)
--- NOTE | 2021-06-30 08:00 | PM.DS ---
DS: Admitting Diagnosis Discharge Date Date of service 06/30/2021 at 8 a.m. Admitting Diagnosis Metabolic encephalopathy and acute systolic and diastolic heart failure exacerbation DS: Discharge Diagnosis Discharge Diagnosis (1) Acute metabolic encephalopathy: Code(s): G93.41 - Metabolic encephalopathy Status: Acute Assessment and Plan: Still confused, upbeat, and sitting in a chair, Chest xray showed possible aspiration PNA brain CT did not show any acute intracranial findings. 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 Patient is at baseline. She knows her daughter has her purse an wallet (2) Aspiration pneumonia: Code(s): J69.0 - Pneumonitis due to inhalation of food and vomit Status: Acute Assessment and Plan: Chest xray: pulmonary infiltrates in the right mid and and bilateral lower lobe, aspiration PNA vs Fluid overload Will get with ST about maybe a modified swallow Added Zosyn, change Augmentin PO for discharge try to get sputum culture WBC 9.5 (3) Congestive heart failure: Code(s): I50.9 - Heart failure, unspecified Status: Acute Assessment and Plan: Effectively diuresed, will continue Echo from 01/24/2021 showed an EF of 30-35% with an abnormal diastolic function severe mitral valve regurg and moderate tricuspid regurg Patient is in acute systolic and diastolic heart failure peripheral edema and mild congestive changes on x-ray Trend volume status BNP >73498 Furosemide 40mg PO daily, changed to IV for 4 doses, changed to PO 40mg Daily Daily weights Strict I&Os (4) Chronic kidney disease: Code(s): N18.9 - Chronic kidney disease, unspecified Status: Acute Assessment and Plan: Creatinine is stable on review of previous labs and will be monitored. Current 35/1.30 GFR 39, creatinine clearance 23 Given lab values patient is on stage 3 chronic kidney disease Continue to trend Continues to be at baseline (5) Coronary artery disease: Code(s): I25.10 - Atherosclerotic heart disease of [place] coronary artery without angina pectoris Status: Acute Assessment and Plan: Continue statin and beta-johanna continue with aspirin Plavix restarted (6) Frequent falls: Code(s): R29.6 - Repeated falls Status: Acute Assessment and Plan: Patient does have frequent falls Probably needs some DC planning as it is not appropriate for her to be living by herself Care coordination consult Patient is going to [facility] (7) Peripheral vascular disease: Code(s): I73.9 - Peripheral vascular disease, unspecified Status: Acute Assessment and Plan: No acute evidence of limb ischemia. Continue statin and aspirin. Plavix restarted (8) Paroxysmal atrial fibrillation: Code(s): I48.0 - Paroxysmal atrial fibrillation Status: Acute Assessment and Plan: Currently in atrial fibrillation, rate controlled. Chronic anticoagulation could be contraindicated due to frequent falling HAS-BLED score is 5 which indicates other alternatives should be entertained Chadvas score is 8 which puts her at high risk for stroke On clopidogrel and aspirin at home Plavix restarted (9) Dementia: Code(s): F03.90 - Unspecified dementia without behavioral disturbance Status: Acute Assessment and Plan: Not officially diagnosed. Plan is as detailed above. (10) Hypomagnesemia: Code(s): E83.42 - Hypomagnesemia Status: Acute Assessment and Plan: Mg 1.7 Replaced with 2gm Trend labs replace as needed DS: Summary Hospital Course Hospital Course: Patient is a 85-year-old female with a past medical history congestive heart failure, AFib, valvular heart disease, chronic kidney disease, hypertension who presented to the ED after being found down at her cal
--- NOTE | 2021-06-30 08:00 | P.DS_ITS ---
DS: Admitting Diagnosis Discharge Date Date of service 06/30/2021 at 8 a.m. Admitting Diagnosis Metabolic encephalopathy and acute systolic and diastolic heart failure exacerbation DS: Discharge Diagnosis Discharge Diagnosis (1) Acute metabolic encephalopathy: Code(s): G93.41 - Metabolic encephalopathy Status: Acute Assessment and Plan: * Still confused, upbeat, and sitting in a chair, * Chest xray showed possible aspiration PNA * brain CT did not show any acute intracranial findings. 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 Patient is at baseline. She knows her daughter has her purse an wallet (2) Aspiration pneumonia: Code(s): J69.0 - Pneumonitis due to inhalation of food and vomit Status: Acute Assessment and Plan: * Chest xray: pulmonary infiltrates in the right mid and and bilateral lower lobe, aspiration PNA vs Fluid overload * Will get with ST about maybe a modified swallow * Added Zosyn, change Augmentin PO for discharge * try to get sputum culture * WBC 9.5 (3) Congestive heart failure: Code(s): I50.9 - Heart failure, unspecified Status: Acute Assessment and Plan: * Effectively diuresed, will continue * Echo from 01/24/2021 showed an EF of 30-35% with an abnormal diastolic function severe mitral valve regurg and moderate tricuspid regurg * Patient is in acute systolic and diastolic heart failure * peripheral edema and mild congestive changes on x-ray * Trend volume status * BNP >92625 * Furosemide 40mg PO daily, changed to IV for 4 doses, changed to PO 40mg Daily * Daily weights * Strict I&Os (4) Chronic kidney disease: Code(s): N18.9 - Chronic kidney disease, unspecified Status: Acute Assessment and Plan: * Creatinine is stable on review of previous labs and will be monitored. * Current 35/1.30 GFR 39, creatinine clearance 23 * Given lab values patient is on stage 3 chronic kidney disease * Continue to trend Continues to be at baseline (5) Coronary artery disease: Code(s): I25.10 - Atherosclerotic heart disease of [place] coronary artery without angina pectoris Status: Acute Assessment and Plan: * Continue statin and beta-johanna * continue with aspirin * Plavix restarted (6) Frequent falls: Code(s): R29.6 - Repeated falls Status: Acute Assessment and Plan: * Patient does have frequent falls * Probably needs some DC planning as it is not appropriate for her to be living by herself * Care coordination consult Patient is going to [facility] (7) Peripheral vascular disease: Code(s): I73.9 - Peripheral vascular disease, unspecified Status: Acute Assessment and Plan: * No acute evidence of limb ischemia. * Continue statin and aspirin. * Plavix restarted (8) Paroxysmal atrial fibrillation: Code(s): I48.0 - Paroxysmal atrial fibrillation Status: Acute Assessment and Plan: * Currently in atrial fibrillation, rate controlled. * Chronic anticoagulation could be contraindicated due to frequent falling * HAS-BLED score is 5 which indicates other alternatives should be entertained * Chadvas score is 8 which puts her at high risk for stroke * On clopidogrel and aspirin at home * Plavix restarted (9) Dementia: Code(s): F03.90 - Unspecified dementia without behavioral disturbance Status: Acute Assessment and Plan:
[2021-06-30] MEDS: ASPIRIN 81 MG ENTERIC TABLET BY MOUTH (08:56)
[2021-06-30] MEDS: FUROSEMIDE INJ 40 MG/4 ML VIAL IV PUSH (08:56)
[2021-06-30] MEDS: FAMOTIDINE 20 MG/2 ML VIAL IV PUSH (08:56)
[2021-06-30] MEDS: CLOPIDOGREL BISULFATE 75 MG TABLET PO (08:56)
[2021-06-30] MEDS: carvediloL 1.56 MG TABLET PO (08:59)
[2021-06-30] MEDS: MAGNESIUM SULF 2 GM/WATER 50ML 2 GM/50 ML BAG IVPB (10:42)
--- NOTE | 2021-06-30 10:43 | PCPTNOTE ---
Patient reports she is in no pain at this time. Patient refused to do exercises at this time when asked by therapist. Patient was pleasantly confused. Nursing notified of refusal.
[2021-06-30 11:40] LABS: EDCOVIDSCREEN Negative (Negative)
--- NOTE | 2021-06-30 12:39 | PC.NURSE ---
Called report to [facility] at 1230. Report given to Brianne nurse at [facility]. Faxed discharge information to facility. Awaiting patient's daughter to bring her over to the facility.
== END 2021-06-30 16:40 | DRG 291 ==
LOC: ANHED 15:23 → ANHIMU 19:35 → ANH2MED 06-26 20:05
PROVIDERS: Physician Assistant; Admitting Provider Internal Medicine; Emergency Provider Emergency Medicine; PCP Internal Medicine; Visit Provider Nurse Practitioner
DX: I13.0 Hypertensive heart and chronic kidney disease with heart failure and stage 1 through stage 4 chronic kidney disease, or unspecified chronic kidney disease (principal); G93.41 Metabolic encephalopathy; J69.0 Pneumonitis due to inhalation of food and vomit; I50.43 Acute on chronic combined systolic (congestive) and diastolic (congestive) heart failure; M62.82 Rhabdomyolysis; Z20.822 Contact with and (suspected) exposure to COVID-19; N18.30 Chronic kidney disease, stage 3 unspecified; R00.1 Bradycardia, unspecified; F03.90 Unspecified dementia, unspecified severity, without behavioral disturbance, psychotic disturbance, mood disturbance, and anxiety; R77.8 Other specified abnormalities of plasma proteins; R79.89 Other specified abnormal findings of blood chemistry; I25.10 Atherosclerotic heart disease of native coronary artery without angina pectoris; R29.6 Repeated falls; I08.1 Rheumatic disorders of both mitral and tricuspid valves; I48.0 Paroxysmal atrial fibrillation; I73.9 Peripheral vascular disease, unspecified; I27.20 Pulmonary hypertension, unspecified; E78.5 Hyperlipidemia, unspecified; E83.42 Hypomagnesemia; Z66 Do not resuscitate; Z79.899 Other long term (current) drug therapy; Z86.73 Personal history of transient ischemic attack (TIA), and cerebral infarction without residual deficits; Z87.891 Personal history of nicotine dependence; Z95.1 Presence of aortocoronary bypass graft
CPT/HCPCS: 36415; 70450; 70551; 71045; 80048; 80053; 80076; 81001; 82550; 82607; 82948; 83605; 83735; 83880; 84100; 84443; 84484; 85025; 85610; 86140; 87040; 87086; 87426; 92610; 93005; 93970; 96361; 96365; 96372; 96375; 96376; 97110; 97116; 97161; 97167; 97530; 97535; 99285; A9270; C9803; G0378; J0696; J1630; J1940; J2543; J3475; J7120

== ENCOUNTER 2021-07-01 08:38 | Emergency (ER) | payer MEDICARE, OTHER, SELFPAY ==
[2021-07-01] VITALS (48 sets, daily range): BP systolic 125–210; BP diastolic 67–114; PULSE 41–92; RESP 0–32; TEMP 36.2; O2SAT 82–98
--- NOTE | 2021-07-01 08:46 | ECG_ITS ---
Measurements Intervals [place] Rate: 73 P: [place]: 0 QRS: -9 QRSD: 97 T: 92 QT: 417 QTc: 461 Interpretive Statements ATRIAL FIBRILLATION VENTRICULAR PREMATURE COMPLEXES INCOMPLETE RIGHT BUNDLE BRANCH BLOCK CANNOT RULE OUT SEPTAL INFARCT, AGE INDETERMINATE BORDERLINE T WAVE ABNORMALITY- HIGH LATERAL LEADS BASELINE ARTIFACT- III, V1-V2, V6 ABNORMAL ECG Electronically Signed On 07-01-2021 8:56:25 [employer] FRAMER by Simon Clarke D.O.
--- NOTE | 2021-07-01 08:54 | ED.AMS ---
HPI - Altered Mental Status General Chief Complaint: Altered Mental Status Stated Complaint: ams Time Seen by Provider: 07/01/21 08:52 Source: patient and EMS Mode of arrival: EMS Limitations: dementia History of Present Illness HPI narrative: Patient is an 85-year-old female [facility], status described as confusion. Patient was discharged yesterday after being admitted for the same complaints. Patient had a CT scan of her head which did not show acute intracranial process an MRI of her head which showed old infarcts otherwise nothing acute. Patient was diagnosed with metabolic encephalopathy, was discharge yesterday and based on the note that she was still confused upon discharge. Patient has a history of dementia. Patient somnolent but easily arousable, has no complaints at this time. Related Data Home Medications Medication Instructions Recorded Confirmed atorvastatin 80 mg PO DAILY 01/23/21 06/24/21 clopidogrel 75 mg PO DAILY 01/23/21 06/24/21 ezetimibe 10 mg PO DAILY 01/23/21 06/24/21 loratadine 10 mg PO DAILY PRN 01/23/21 06/24/21 aspirin 81 mg DAILY 06/24/21 06/25/21 ferrous sulfate 324 mg PO DAILY 06/24/21 06/24/21 Allergies Allergy/AdvReac Type Severity Reaction Status Date / Time No Known Allergies Allergy Verified 06/24/21 09:22 Review of Systems Review of Systems: ROS unobtainable: Yes other (Dementia) [facility] Past Medical History Medical History Arthritis Carotid artery disease Right carotid artery stenosis. Chronic kidney disease Stage 3 to 4. Baseline creatinine ranges between 1.5 and 1.80. Congestive heart failure Echocardiogram on 01/24/2021 showed a mildly enlarged left ventricular chamber with a left ventricular systolic ejection fraction of 30 to 35%, moderately increased left ventricular wall thickness, abnormal diastolic function, mildly enlarged right ventricular chamber with reduced systolic function of the right ventricle. Coronary artery disease Dementia Hyperlipidemia Hypertension Moderate pulmonary hypertension Estimated pulmonary arterial systolic pressure was 51 mmHg on echocardiogram taken 01/24/2021. Osteopenia Paroxysmal atrial fibrillation Peripheral vascular disease Transient ischemic attack Valvular heart disease Echocardiogram on 01/24/2021 showed moderate tricuspid valve regurgitation and severe mitral valve regurgitation. Surgical History Surgical History History of coronary artery bypass graft Family History Family History Mother Alzheimer disease Diabetes mellitus Heart disease Father Stomach ulcer Social History Social History Social History: The patient reports that she lives alone and she has been for 30 years. She has 2 sons and many family members nearby that come help her out at home. 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 She has a walker and wheelchair at home but it sounds as if she ambulates around the house most the time by grabbing onto furniture and she has had several falls this year. She is a former smoker and quit about 30 years ago. No alcohol or illicit substance use. Her son Bubba Singh and [id number] [place] are her surrogate decision makers. She is a do not resuscitate. Spiritual care concerns: No Exam Const: General: cooperative, healthy appearing, comfortable, no acute distress, well developed and other (Somnolent but easily arousable and answers to queries) Orientation/consciousness: Other orientation findings (Somnolent, oriented x1) Limitations: altered mental status HENMT: Head: normal to inspection, normocephalic and atraumatic Ears: hearing grossly normal bilaterally, TM normal on the right and TM normal on the left General nose exam: Normal external nose p
[2021-07-01] MEDS: LABETALOL HCL INJ 100 MG/20 ML VIAL 20 MG IV PUSH (09:06)
[2021-07-01 09:21] LABS: Basophils Percent Auto 0.4 % (0.2-1.2); Eosinophils Absolute Auto 0.2 K/mm3 (0-0.3); Eosinophils Percent Auto 1.9 % (0-4.4); Hematocrit 39.3 % (37.0-47.0); Hemoglobin 12.6 g/dL (12.0-15.0); Immature Granulocyte Absolute 0.06 K/mm3 (0.00-0.031); Immature Granulocyte Percent A 0.6 % (0-0.5); Lymphocytes Absolute Auto 1.25 K/mm3 (0.9-3.2); Lymphocytes Percent Auto 11.5 % (18.3-44.2); Mean Corpuscular HGB Conc 32.1 g/dl (32-36); Mean Corpuscular Volume 90.6 fl (80-100); Mean Platelet Volume 11.2 fl (7.4-10.4); Monocytes Percent Auto 8.9 % (2.6-8.5); Neutrophils Absolute Auto 8.3 K/mm3 (1.3-6.7); Neutrophils Percent Auto 76.7 % (45.5-73.1); Platelet Count Result 267 k/mm3 (150-375); Red Blood Count 4.34 M/mm3 (4.2-5.4); Red Cell Distribution Width 16.6 % (11.5-14.5); White Blood Count 10.9 K/mm3 (4.5-10.0)
[2021-07-01 09:31] LABS: INR 1.1; Partial Thromboplastin Time 21.6 SECONDS (22.3-36.8); Prothrombin Time 14.2 Seconds (11.1-14.7)
[2021-07-01 09:53] LABS: Alanine Aminotransferase 22 U/L (4-35); Albumin Level 2.9 g/dL (3.5-5.1); Alkaline Phosphatase 70 U/L (38-126); Anion Gap 8 mmol/L (8-16); Aspartate Amino Transferase 20 U/L (14-36); Bilirubin,Total 1.3 mg/dL (0.2-1.3); Blood Urea Nitrogen 26 mg/dL (7-17); Calcium 7.2 mg/dL (8.4-10.2); Carbon Dioxide 32 mmol/L (22-30); Chloride 98 mmol/L (98-107); Estimated CRCL calculation 23 ml/min; Estimated Glomerular Filt Rate 47; Glucose 160 mg/dL (65-110); Potassium 2.5 mmol/L (3.4-5.0); Sodium 138 mmol/L (137-145)
[2021-07-01 10:00] LABS: Add Urine Microscopic? YES; Appearance Urine Clear (Clear); Bilirubin Urine Negative (Negative); Blood Urine Negative (Negative); Color Urine Yellow (Yellow); Glucose Urine UA Negative (Negative); Ketones Urine Negative (Negative); Leukocyte Esterase Ur Negative LEU/UL (Negative); Mucus Urine Rare /lpf; Nitrate Urine Negative (Negative); Protein Urine 2+ mg/dL (Negative); RBC Urine 0-2 /hpf (0-2); Specific Grav Ur 1.016 (1.001-1.035); Squamous Epithelial Cell Urine Rare /hpf (Few); WBC Urine 0-3 /hpf
[2021-07-01] MEDS: LACTATED RINGERS 1,000 ML 100 ML IV CONT (10:22)
[2021-07-01] MEDS: LACTATED RINGERS 1,000 ML 999 ML IV CONT (11:12)
[2021-07-01] MEDS: POTASSIUM CHLORIDE 20 MEQ TABLET PO (12:31)
[2021-07-01 14:09] LABS: Potassium 3.3 mmol/L (3.4-5.0)
== END 2021-07-01 15:52 ==
PROVIDERS: Emergency Provider Emergency Medicine; PCP Internal Medicine
DX: Z79.82 Long term (current) use of aspirin (principal); I13.0 Hypertensive heart and chronic kidney disease with heart failure and stage 1 through stage 4 chronic kidney disease, or unspecified chronic kidney disease; N18.4 Chronic kidney disease, stage 4 (severe); I50.9 Heart failure, unspecified; F03.90 Unspecified dementia, unspecified severity, without behavioral disturbance, psychotic disturbance, mood disturbance, and anxiety; E78.5 Hyperlipidemia, unspecified; I27.20 Pulmonary hypertension, unspecified; I48.0 Paroxysmal atrial fibrillation; I25.10 Atherosclerotic heart disease of native coronary artery without angina pectoris; I65.21 Occlusion and stenosis of right carotid artery; I08.1 Rheumatic disorders of both mitral and tricuspid valves; I73.9 Peripheral vascular disease, unspecified; Z86.73 Personal history of transient ischemic attack (TIA), and cerebral infarction without residual deficits; Z95.1 Presence of aortocoronary bypass graft
CPT/HCPCS: 36415; 51701; 80053; 81001; 84132; 85025; 85610; 85730; 93005; 96361; 96365; 96375; 99284; A9270; J3480; J7060; J7120

== ENCOUNTER 2021-07-02 12:21 | Inpatient (IN) | payer MEDICARE, OTHER, SELFPAY ==
[2021-07-02] VITALS (30 sets, daily range): BP systolic 107–195; BP diastolic 64–134; PULSE 65–82; RESP 12–25; TEMP 36.3–36.6; O2SAT 92–98; BMI 25.7
--- NOTE | ~2021-07-02 | CT_ITS ---
EXAMINATION: CT brain wo con DATE: 07/02/2021 13:10 INDICATION: Altered mental status TECHNIQUE: Computed tomography (CT) of the head was performed without intravenous contrast. Sagittal and coronal reconstructions were performed. The mA was adjusted according to patient size. Iterative reconstruction technique was employed. The dose-length product was 605.33 mGy-cm. COMPARISON: head CT dated and MRI dated 06/25/2021 FINDINGS: No acute intracranial hemorrhage, acute infarction or abnormal extra axial fluid collection. Small ol d infarcts in the bilateral cerebellar hemispheres. There is mild scattered white matter hypoattenuat ion consistent with chronic small vessel ischemic disease. Symmetric prominence of the sulci and vent ricles consistent with mild to moderate age-appropriate diffuse cerebral volume loss. No mass/mass ef fect. Dystrophic calcifications at the bilateral basal ganglia. Intracranial calcified cerebral ather osclerosis is noted. Bilateral mastoid effusions. Mild mucosal thickening in the bilateral ethmoid si nuses. Changes of intraocular lens replacement. IMPRESSION: 1. No acute intracranial process. 2. 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 3. Age-related changes including mild to moderate diffuse volume loss and mild scattered white matter hypoattenuation consistent with chronic small vessel ischemic disease. Reviewed, dictated and finalized at location A. RISK OB
--- NOTE | ~2021-07-02 | US_ITS ---
EXAMINATION: US carotid duplex BI EXAM DATE: 07/03/2021 11:23 INDICATION: Confusion. TECHNIQUE: Grayscale, color and pulsed Doppler images of the cervical carotid arteries were obtained . The degree of vessel stenosis is placed in one of the following categories: normal, <50% stenosis, 50-69% stenosis, >=70% stenosis but less than near-occlusion, near-occlusion, or occlusion. Note that percent stenosis relative to normal distal artery lumen diameter is indirectly measured from velocit y measurements as described by Michael, et al. Radiology 2003; 229:340-346. There is no prior study fo r comparison. FINDINGS: Notation made that exam was difficult, patient declined fully participating. RIGHT SIDE: Right common carotid artery peak systolic velocity (PSV in cm/s): 35 Right bulb/internal carotid artery peak systolic velocity (PSV in cm/s): 109 Right internal carotid artery end diastolic velocity (EDV in cm/s): 9.1 Right ICA/CCA peak systolic ratio: 3.1 Right external carotid artery peak systolic velocity (PSV in cm/s): 127 Right vertebral artery antegrade flow: yes There is large amount of right carotid bulb plaque extending into the ECA and ICA, with an elevated I CA/CCA peak systolic ratio of 3.1. Visually there is >=70% but less than near occlusion. LEFT SIDE: Left common carotid artery peak systolic velocity (PSV in cm/s): 53 Left bulb/internal carotid artery peak systolic velocity (PSV in cm/s): 55 Left internal carotid artery end diastolic velocity (EDV in cm/s): 14 Left ICA/CCA peak systolic ratio: 1.0 Left external carotid artery peak systolic velocity (PSV in cm/s): 76 Left vertebral artery antegrade flow: yes There is moderate carotid bulb plaque. Velocity and Doppler waveforms in the common and internal carotid arteries is normal. IMPRESSION: 1. Visually >=70% but less than near occlusion right internal carotid artery. 2. Less than 50 percent stenosis in the left internal carotid artery. Reviewed, dictated and finalized at location A. NI COORDINATOR
--- NOTE | ~2021-07-02 | XR_ITS ---
MODIFIED ESOPHAGRAM HISTORY: Aspiration TECHNIQUE: Modified barium esophagram was performed on 07/03/2021. I administered fluoroscopy and per formed the exam with speech pathologist. Patient was seated for lateral fluoroscopic imaging for ing estion of thin liquids, pudding, solids and quantified amounts, followed by thin liquids in uncontrol led amounts. This was recorded on tape. A single fluoroscopic spot image was also recorded. The DAP f or this procedure was 0.951 Gycm2. The amount of fluoroscopy time used during this procedure was 1.6 minutes. FINDINGS: Oral stage: Adequate function. Pharyngeal stage: Pharyngeal dysphagia with reduced laryngeal elevation and adduction. Recurrent chema ngeal penetration and aspiration with thin liquids, thickened liquids and pudding consistencies. Cervical/esophageal stage: Adequate function. IMPRESSION: Prominent pharyngeal dysphagia with recurrent laryngeal penetration and aspiration with m ultiple consistencies. Please correlate with speech pathologist findings and specific feeding recomm endations. Reviewed, dictated and finalized at location A. T ROCK APPLIER IMPRESSION: Prominent pharyngeal dysphagia with recurrent laryngeal penetration and aspiration with multiple consistencies. Please correlate with speech path ologist findings and specific feeding recommendations.
--- NOTE | ~2021-07-02 | XR_ITS ---
EXAMINATION: XR fl Dobhoff insert/rad w img DATE: 07/04/2021 10:48 INDICATION: Prior aspiration TECHNIQUE: A Dobbhoff type feeding tube was advanced into the duodenum utilizing intermittent fluoroscopy. Final image demonstrates the feeding tube in position with the weighted tip at the expected location of th e ligament of Treitz. The tube was fixed to the nares with adhesive tape. A single fluoroscopic image was recorded. Fluoroscopy exposure time was 2.6 minutes. The DAP for this procedure was 11.678 Gycm2 . There were no immediate complications. FINDINGS/IMPRESSION: Successful fluoroscopy-guided Dobbhoff feeding tube placement with distal tip in the fourth portion o f the duodenum. Reviewed, dictated and finalized at location A. H FOOD MANAGER
--- NOTE | ~2021-07-02 | XR_ITS ---
EXAMINATION: XR chest 1V portable DATE: 07/02/2021 13:13 INDICATION: Transient level of awareness. TECHNIQUE: frontal view of the chest was obtained. COMPARISON: Chest radiograph dated 06/28/2021 FINDINGS: Skin folds project over the bilateral mid to lower lung zones. Diffuse increased indistinct interstit ial pattern with bronchial wall thickening. Hazy airspace opacities in the bilateral lower lung zones with obscuration of the bilateral costophrenic angles. No pneumothorax. Calcified nodule at the left lower lung zone along with calcified left hilar and mediastinal lymph nodes consistent with old gran ulomatous disease. Cardiomegaly. Median sternotomy wires. Atherosclerotic aorta. Additional atheroscl erotic calcification is at the bilateral carotid bulbs. 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 IMPRESSION: 1. Likely congestive heart failure with cardiomegaly, increasing pulmonary edema, small bilateral ple ural effusions and associated basilar atelectasis versus less likely pneumonia. Reviewed, dictated and finalized at location A. UP HELPER IMPRESSION: 1. Likely congestive heart failure with cardiomegaly, increasing pulmonary mynor a, small bilateral pleural effusions and associated basilar atelectasis versus less likely pneumonia.
--- NOTE | 2021-07-02 12:30 | PC.NURSE ---
Pt presents with bilateral arms bruising,scabs,dry skin, bilateral legs presents with dry cool cracked feet,cap refill less than 3sec,pt has right arm bandage from facility, two pressure dressings to right calf, coccyx slightly pink
--- NOTE | 2021-07-02 12:54 | ECG_ITS ---
Measurements Intervals [place] Rate: 77 P: [place]: 0 QRS: -5 QRSD: 88 T: 88 QT: 376 QTc: 427 Interpretive Statements ATRIAL FIBRILLATION INCOMPLETE RIGHT BUNDLE BRANCH BLOCK BORDERLINE R WAVE PROGRESSION, ANTERIOR LEADS BORDERLINE T WAVE ABNORMALITY- HIGH LATERAL LEADS BASELINE ARTIFACT- V1-V3, V6 ABNORMAL ECG Electronically Signed On 07-02-2021 13:46:20 SYS DIR by Simon Clarke D.O.
--- NOTE | 2021-07-02 13:01 | ED.GENADULT ---
HPI - General Adult General Chief complaint: Altered Mental Status Stated complaint: ams Time Seen by Provider: 07/02/21 12:41 Source: EMS Mode of arrival: EMS History of Present Illness HPI narrative: Patient is a 85 y/o female sent from [place] for severe increased confusion. Patient reportedly has been more confused since yesterday. There is no known alleviating or exacerbating factor. She is unable to provide any history due to her poor mental status. Related Data Home Medications Medication Instructions Recorded Confirmed atorvastatin 80 mg PO DAILY 01/23/21 07/02/21 clopidogrel 75 mg PO DAILY 01/23/21 07/02/21 ezetimibe 10 mg PO DAILY 01/23/21 07/02/21 loratadine 10 mg PO DAILY PRN 01/23/21 07/02/21 aspirin 81 mg DAILY 06/24/21 07/02/21 ferrous sulfate 324 mg PO DAILY 06/24/21 07/02/21 Allergies Allergy/AdvReac Type Severity Reaction Status Date / Time No Known Allergies Allergy Verified 06/24/21 09:22 Review of Systems Review of Systems: ROS unobtainable: Yes unobtainable due to mental status [facility] Past Medical History Medical History Arthritis Carotid artery disease Right carotid artery stenosis. Chronic kidney disease Stage 3 to 4. Baseline creatinine ranges between 1.5 and 1.80. Congestive heart failure Echocardiogram on 01/24/2021 showed a mildly enlarged left ventricular chamber with a left ventricular systolic ejection fraction of 30 to 35%, moderately increased left ventricular wall thickness, abnormal diastolic function, mildly enlarged right ventricular chamber with reduced systolic function of the right ventricle. Coronary artery disease Dementia Hyperlipidemia Hypertension Moderate pulmonary hypertension Estimated pulmonary arterial systolic pressure was 51 mmHg on echocardiogram taken 01/24/2021. Osteopenia Paroxysmal atrial fibrillation Peripheral vascular disease Transient ischemic attack Valvular heart disease Echocardiogram on 01/24/2021 showed moderate tricuspid valve regurgitation and severe mitral valve regurgitation. Surgical History Surgical History History of coronary artery bypass graft Family History Family History Mother Alzheimer disease Diabetes mellitus Heart disease Father Stomach ulcer Social History Social History (Updated 07/02/21 @ 15:36 by JESSA Gorman) Social History: The patient reports that she lives alone and she has been for 30 years. She has 2 sons and many family members nearby that come help her out at home. 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 She has a walker and wheelchair at home but it sounds as if she ambulates around the house most the time by grabbing onto furniture and she has had several falls this year. She is a former smoker and quit about 30 years ago. No alcohol or illicit substance use. Her son Bubba Singh and [id number] [place] are her surrogate decision makers. She is a do not resuscitate. 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
[2021-07-02 13:41] LABS: Alveolar/Arterial O2 Gradient 46.4 mmHg; Base Excess ABG 6.6 mEq/l (+/-2.0); Fractional Inspired Oxygen 21 %; HCO3 ABG 30.1 mEq/l (22.0-26.0); Oxygen Content ABG 15.7 %vol (16.0-22.0); Oxygen Saturation ABG 91.9 % (95.0-100.0); PCO2 ABG 39.1 mmHg (35.0-45.0); PO2 ABG 56.5 mmHg (80.0-100.0); PO2 FiO2 Ratio Arterial Blood 2.69 %; Total Hemoglobin 12.8 g/dL (12.0-18.0)
[2021-07-02 13:44] LABS: pH ABG 7.504 (7.350-7.450)
[2021-07-02 13:45] LABS: Device ROOM AIR; Modified Allen's Test Pass; Oxyhemoglobin 87.5 % THb (90.0-100.0); Site Drawn RIGHT RADIAL
[2021-07-02 14:27] LABS: Basophils Percent Auto 0.2 % (0.2-1.2); Hematocrit 39.4 % (37.0-47.0); Hemoglobin 12.4 g/dL (12.0-15.0); Immature Granulocyte Absolute 0.08 K/mm3 (0.00-0.031); Immature Granulocyte Percent A 0.8 % (0-0.5); Lymphocytes Absolute Auto 0.94 K/mm3 (0.9-3.2); Lymphocytes Percent Auto 9.4 % (18.3-44.2); Mean Corpuscular HGB Conc 31.5 g/dl (32-36); Mean Corpuscular Hemoglobin 28.5 pg (26-34); Mean Corpuscular Volume 90.6 fl (80-100); Mean Platelet Volume 11.6 fl (7.4-10.4); Monocytes Absolute Auto 0.9 K/mm3 (0.1-0.6); Monocytes Percent Auto 9.4 % (2.6-8.5); Neutrophils Absolute Auto 8.1 K/mm3 (1.3-6.7); Neutrophils Percent Auto 80.2 % (45.5-73.1); Platelet Count Result 242 k/mm3 (150-375); Red Blood Count 4.35 M/mm3 (4.2-5.4); Red Cell Distribution Width 16.6 % (11.5-14.5)
[2021-07-02 14:41] LABS: Alanine Aminotransferase 49 U/L (4-35); Albumin Level 4.1 g/dL (3.5-5.1); Alkaline Phosphatase 87 U/L (38-126); Anion Gap 12 mmol/L (8-16); Aspartate Amino Transferase 61 U/L (14-36); Bilirubin,Total 1.9 mg/dL (0.2-1.3); Blood Urea Nitrogen 34 mg/dL (7-17); Calcium 9.2 mg/dL (8.4-10.2); Carbon Dioxide 29 mmol/L (22-30); Chloride 95 mmol/L (98-107); Estimated CRCL calculation 26 ml/min; Estimated Glomerular Filt Rate 43; Glucose 120 mg/dL (65-110); Potassium 4.5 mmol/L (3.4-5.0); Sodium 136 mmol/L (137-145)
[2021-07-02 14:47] LABS: Add Urine Microscopic? YES; Appearance Urine Cloudy (Clear); Bilirubin Urine Negative (Negative); Blood Urine 2+ (Negative); Color Urine Amber (Yellow); Glucose Urine UA Negative (Negative); Ketones Urine Negative (Negative); Leukocyte Esterase Ur Negative LEU/UL (Negative); Mucus Urine Rare /lpf; Nitrate Urine Negative (Negative); Protein Urine 3+ mg/dL (Negative); Specific Grav Ur 1.025 (1.001-1.035); Squamous Epithelial Cell Urine Occasional /hpf (Few); WBC Urine 0-3 /hpf
--- NOTE | 2021-07-02 15:01 | PC.NURSE ---
Redd in lab aware of BNP and troponin lab add on.
--- NOTE | 2021-07-02 15:23 | PM.IMHP ---
H&P: HPI History of Present Illness Date/Time: 07/02/21 15:23 Chief Complaint: Altered mental status Narrative: Patient is an 85-year-old female with a past medical history of chronic kidney disease, congestive heart failure, and dementia who presented to the emergency room today from [facility] for complaints of altered mental status. I went to see the patient in the ED and the patient can not tell me she just feels loose. Patient does have a palmer tone to her and does seem to be short of breath however she denies chest pain, shortness of breath, abdominal pain, nausea, vomiting, sweats, fevers, chills, dizziness, headaches. Patient stated that she does remember me from last time. Patient states that she does not feel bad. According to the ED the patient was nonverbal or responsive however this patient is very hard of hearing and cannot hear. Chest x-ray does show the patient to have fluid overload versus less likely pneumonia. Patient was discharged on 06/30/2021 for metabolic encephalopathy related to CHF and aspiration pneumonia. Upon admission patient will be started on IV Zosyn along with IV furosemide. Cardiology has been consulted and contacted about the patient. Unable to obtain full ROS due to patient's mental status. Patient is being admitted in observation status Review of Systems Review of Systems: All systems reviewed & are unremarkable except as noted in HPI and below PMFSH Past Medical History Medical History (Updated 07/03/21 @ 06:16 by JESSA Gorman) Arthritis Carotid artery disease Right carotid artery stenosis. Chronic kidney disease Stage 3 to 4. Baseline creatinine ranges between 1.5 and 1.80. Congestive heart failure Echocardiogram on 01/24/2021 showed a mildly enlarged left ventricular chamber with a left ventricular systolic ejection fraction of 30 to 35%, moderately increased left ventricular wall thickness, abnormal diastolic function, mildly enlarged right ventricular chamber with reduced systolic function of the right ventricle. Coronary artery disease Dementia Hyperlipidemia Hypertension Moderate pulmonary hypertension Estimated pulmonary arterial systolic pressure was 51 mmHg on echocardiogram taken 01/24/2021. Osteopenia Paroxysmal atrial fibrillation Peripheral vascular disease Transient ischemic attack Valvular heart disease Echocardiogram on 01/24/2021 showed moderate tricuspid valve regurgitation and severe mitral valve regurgitation. Surgical History Surgical History History of coronary artery bypass graft Family History Family History Mother Alzheimer disease Diabetes mellitus Heart disease Father Stomach ulcer Social History Social History (Updated 07/02/21 @ 15:36 by JESSA Gorman) Social History: The patient reports that she lives alone and she has been for 30 years. She has 2 sons and many family members nearby that come help her out at home. 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 She has a walker and wheelchair at home but it sounds as if she ambulates around the house most the time by grabbing onto furniture and she has had several falls this year. She is a former smoker and quit about 30 years ago. No alcohol or illicit substance use. Her son Bubba Singh and [id number] [place] are her surrogate decision makers. She is a do not resuscitate. 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
--- NOTE | 2021-07-02 15:25 | PC.NURSE ---
Pt gone to ultrasound
[2021-07-02 15:27] LABS: NT Pro B Type Natriuretic Pept > 35000 pg/mL (5-100); Troponin I 0.238 ng/mL (0.000-0.034)
[2021-07-02] MEDS: FUROSEMIDE INJ 40 MG/4 ML VIAL IV PUSH (15:47)
--- NOTE | 2021-07-02 16:00 | PC.NURSE ---
Pt continues to remove monitoring
--- NOTE | 2021-07-02 19:00 | PC.NURSE ---
Pt continues to remove monitoring
--- NOTE | 2021-07-02 19:09 | PM.CNCAR ---
Assessment and Plan Assessment and plan (1) CHF (congestive heart failure): Qualifiers: Heart failure chronicity: unspecified Heart failure type: unspecified Qualified Code(s): I50.9 - Heart failure, unspecified Code(s): I50.9 - Heart failure, unspecified Status: Acute Assessment and Plan: Acute on chronic systolic heart failure. Received Lasix in ED. Continue with Lasix 40 mg IV BID. Obtain echo. (2) Aspiration pneumonia: Code(s): J69.0 - Pneumonitis due to inhalation of food and vomit Status: Acute Assessment and Plan: On Zosyn, as per hospitalist. (3) Acute metabolic encephalopathy: Code(s): G93.41 - Metabolic encephalopathy Status: Acute (4) Paroxysmal atrial fibrillation: Code(s): I48.0 - Paroxysmal atrial fibrillation Status: Acute Assessment and Plan: Rate is controlled. On aspirin and Plavix as she has history of frequent falls, and it was agreed with her and her family to not be on anticoagulation for it. (5) Valvular heart disease: Code(s): I38 - Endocarditis, valve unspecified Status: Acute (6) Carotid stenosis, right: Code(s): I65.21 - Occlusion and stenosis of right carotid artery Status: Acute (7) CAD (coronary artery disease), autologous vein bypass graft: Code(s): I25.810 - Atherosclerosis of coronary artery bypass graft(s) without angina pectoris Status: Acute (8) Hyperlipidemia: Code(s): E78.5 - Hyperlipidemia, unspecified Status: Inactive Assessment and Plan: On Atorvastatin and Zetia. (9) Hypertension: Code(s): I10 - Essential (primary) hypertension Status: Acute Assessment and Plan: High. If unable to take PO, would use Hydralazine 10 mg IV every 4 hours for SBP>150 mmHg. History of Present Illness History of Present Illness Consult date/time: 07/02/21 19:09 85 yr old woman seen in ED and was brought her for altered mental status. She has a history of mild dementia, CAD/CABG about 5 years ago in [place], atrial fibrillation, systolic heart failure, severe mitral regurgitation, right carotid stenosis and unsure if she had CEA. 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 She is currently by herself in ER. She opens eyes on command, but then closes them and unable to provide any history. She does not appear to be sob or in pain. She is lethargic. In ED, CXR shows likely CHF, small pleural effusions. EKG: Atrial fibrillation at 77 bpm, IRBBB, BRWP, borderline T wave in high lateral leads. Troponin 0.238, NTproBNP >35,000. Cr 1.2/GFR 26. She is being treated with Lasix IV and Zosyn. Prior history from her chart: She has been wheelchair bound for last several months due to weakness, but she can walk with a walker from one room to the next. She noted getting sob and more swelling of legs in recent weeks. She falls about 5-10 times in last 12 months. Denies orthopnea, PND, palpitations. Reason For Visit: CHF Review of Systems Review of Systems: All systems reviewed & are unremarkable except as noted in HPI and below ROS unobtainable: Yes unobtainable due to medical condition and unobtainable due to mental status [facility] Past Medical History Medical History (Updated 07/02/21 @ 19:19 by Simon Clarke DO) Arthritis Carotid artery disease Right carotid artery stenosis. Chronic kidney disease Stage 3 to 4. Baseline creatinine ranges between 1.5 and 1.80. Congestive heart failure Echocardiogram on 01/24/2021 showed a mildly enlarged left ventricular chamber with a left ventricular systolic ejection fraction of 30 to 35%, moderately increased left ventricular wall thickness, abnormal diastolic function, mildly enlarged right ventricular chamber with reduced systolic function of the right ventricle. Coronary artery disease Dementia Hyperlipidemia Hypertension Moderate pulmonary hypertension Estimated pulmonary
[2021-07-02 21:37] LABS: Troponin I 0.252 ng/mL (0.000-0.034)
--- NOTE | 2021-07-02 22:24 | ADMGEN ---
This patient, Yessenia Vega, was admitted to IMU Room 203-01 at 1950 on 07/02/2021. Patient/family oriented to hospital policies and general routines including ID bracelet, bed and alarms, visiting hours, pain management, procedures, bathroom and other care routines, personal items, smoking policy, room service/diet, and visiting hours. Information on how to activate the Rapid Response Team has been discussed. Patient/Family are encouraged to report perceived risks to care and to ask questions if they do not understand what they are told or what they should do.
[2021-07-03] VITALS (12 sets, daily range): BP systolic 106–129; BP diastolic 53–79; PULSE 56–90; RESP 20–98; TEMP 36.3–37; O2SAT 94–100
[2021-07-03 06:53] LABS: Basophils Percent Auto 0.4 % (0.2-1.2); Eosinophils Percent Auto 0.3 % (0-4.4); Hematocrit 35.1 % (37.0-47.0); Hemoglobin 11.2 g/dL (12.0-15.0); Immature Granulocyte Absolute 0.13 K/mm3 (0.00-0.031); Immature Granulocyte Percent A 1.3 % (0-0.5); Lymphocytes Absolute Auto 0.74 K/mm3 (0.9-3.2); Lymphocytes Percent Auto 7.5 % (18.3-44.2); Mean Corpuscular HGB Conc 31.9 g/dl (32-36); Mean Corpuscular Hemoglobin 29.2 pg (26-34); Mean Corpuscular Volume 91.6 fl (80-100); Mean Platelet Volume 10.8 fl (7.4-10.4); Monocytes Percent Auto 9.7 % (2.6-8.5); Neutrophils Absolute Auto 7.9 K/mm3 (1.3-6.7); Neutrophils Percent Auto 80.8 % (45.5-73.1); Platelet Count Result 235 k/mm3 (150-375); Red Blood Count 3.83 M/mm3 (4.2-5.4); Red Cell Distribution Width 16.7 % (11.5-14.5); White Blood Count 9.8 K/mm3 (4.5-10.0)
[2021-07-03 07:04] LABS: Lactic Acid Reflex 1.8 mmol/L (0.7-2.1)
[2021-07-03 07:07] LABS: Alanine Aminotransferase 40 U/L (4-35); Albumin Level 3.4 g/dL (3.5-5.1); Alkaline Phosphatase 74 U/L (38-126); Anion Gap 9 mmol/L (8-16); Aspartate Amino Transferase 39 U/L (14-36); Bilirubin,Total 1.7 mg/dL (0.2-1.3); Blood Urea Nitrogen 38 mg/dL (7-17); Calcium 8.5 mg/dL (8.4-10.2); Carbon Dioxide 33 mmol/L (22-30); Chloride 95 mmol/L (98-107); Estimated CRCL calculation 24 ml/min; Estimated Glomerular Filt Rate 39; Glucose 119 mg/dL (65-110); Magnesium 1.8 mg/dL (1.6-2.3); Potassium 3.4 mmol/L (3.4-5.0); Sodium 137 mmol/L (137-145)
--- NOTE | 2021-07-03 07:35 | PM.PNCARD ---
Progress Note: A&P Assessment and Plan (1) CHF (congestive heart failure): Qualifiers: Heart failure chronicity: unspecified Heart failure type: unspecified Qualified Code(s): I50.9 - Heart failure, unspecified Code(s): I50.9 - Heart failure, unspecified Status: Acute Assessment and Plan: Acute on chronic systolic heart failure. Received Lasix in ED. Continue with Lasix 40 mg IV BID. Systolic heart failure with EF 30-35%. Given her DNR status and dementia will treat her conservatively, and she and family agreeable to not obtain Life Vest or ICD. Obtain echo. (2) Aspiration pneumonia: Code(s): J69.0 - Pneumonitis due to inhalation of food and vomit Status: Acute Assessment and Plan: On Zosyn, as per hospitalist. (3) Acute metabolic encephalopathy: Code(s): G93.41 - Metabolic encephalopathy Status: Acute Assessment and Plan: Improved. (4) Paroxysmal atrial fibrillation: Code(s): I48.0 - Paroxysmal atrial fibrillation Status: Acute Assessment and Plan: [id number] 5. Rate is controlled. On aspirin and Plavix as she has history of frequent falls, and it was previously agreed with her and her family to not be on anticoagulation for it. (5) Valvular heart disease: Code(s): I38 - Endocarditis, valve unspecified Status: Acute (6) Carotid stenosis, right: Code(s): I65.21 - Occlusion and stenosis of right carotid artery Status: Acute Assessment and Plan: Obtain carotid duplex. She was scheduled to see her regular uke operator with [facility] in [place] for CEA or stenting in February 2021. Not sure if this was done. (7) CAD (coronary artery disease), autologous vein bypass graft: Code(s): I25.810 - Atherosclerosis of coronary artery bypass graft(s) without angina pectoris Status: Acute (8) Hyperlipidemia: Code(s): E78.5 - Hyperlipidemia, unspecified Status: Inactive Assessment and Plan: On Atorvastatin and Zetia. (9) Hypertension: Code(s): I10 - Essential (primary) hypertension Status: Acute Assessment and Plan: Controlled. Subjective Date/time seen: 07/03/21 07:35 She is alert and awake this morning. Denies chest pain, sob, or any discomfort. She is oriented x2 (not year). Exam Const: General: cooperative, healthy appearing, comfortable and lethargic Resp: Auscultation: no crackles, no rales, no rhonchi and no wheezes Cardio: Jugular venous distension: no JVD Rate: regular rate Rhythm: abnormal rhythm Heart sounds: no murmurs GI: GI Palp: No abdominal tenderness and Yes Soft to palpation Extrem: Right lower extremity: no edema Left lower extremity: no edema Objective Data Vital Signs Vital Signs: Vital Signs - 24 hr 07/02/21 12:26 07/02/21 12:27 07/02/21 12:28 Temperature Pulse Rate 82 Respiratory Rate 25 H 20 20 Blood Pressure 195/134 H 195/100 H Pulse Oximetry 92 92 92 07/02/21 12:30 07/02/21 12:45 07/02/21 13:11 Temperature Pulse Rate Respiratory Rate 14 15 25 H Blood Pressure Pulse Oximetry 07/02/21 13:15 07/02/21 13:30 07/02/21 13:45 Temperature Pulse Rate Respiratory Rate 20 19 20 Blood Pressure Pulse Oximetry 93 92 07/02/21 14:13 07/02/21 16:01 07/02/21 16:16 Temperature Pulse Rate 76 75 Respiratory Rate 18 18 Blood Pressure 162/96 H 182/64 H Pulse Oximetry 92 93 94 07/02/21 16:46 07/02/21 17:01 07/02/21 17:02 Temperature Pulse Rate 76 77 Respiratory Rate 18 16 18 Blood Pressure 185/92 H 174/92 H Pulse Oximetry 93 94 93 07/02/21 17:16 07/02/21 17:30 07/02/21 17:31 Temperature Pulse Rate Respiratory Rate 20 21 H 22 H Blood Pressure 159/81 H 163/90 H Pulse Oximetry 95 97 07/02/21 17:32 07/02/21 17:53 07/02/21 18:16 Temperature Pulse Rate 75 Respiratory Rate 21 H 12 18 Blood Pressure 169/88 H Pulse Oximetry
[2021-07-03] MEDS: FERROUS SULFATE 324 MG TABLET PO (09:19)
[2021-07-03] MEDS: ASPIRIN 81 MG ENTERIC TABLET BY MOUTH (09:19)
[2021-07-03] MEDS: FUROSEMIDE INJ 40 MG/4 ML VIAL IV PUSH ×2 (09:19→17:27)
[2021-07-03] MEDS: EZETIMIBE 10 MG TABLET PO (09:19)
[2021-07-03] MEDS: ATORVASTATIN 40 MG TABLET 80 MG PO (09:19)
[2021-07-03] MEDS: CYANOCOBALAMIN 1,000 MCG TABLET 1000 MCG PO (09:19)
[2021-07-03] MEDS: POTASSIUM CHLORIDE 20 MEQ TABLET.ER PO (09:19)
[2021-07-03] MEDS: CLOPIDOGREL BISULFATE 75 MG TABLET PO (09:19)
[2021-07-03] MEDS: carvediloL 1.56 MG TABLET PO (09:19)
--- NOTE | 2021-07-03 09:40 | PM.IMPN ---
Progress Note: A&P Assessment and Plan (1) Acute metabolic encephalopathy: Code(s): G93.41 - Metabolic encephalopathy Status: Acute Assessment and Plan: Patient seems to be at baseline Alert and oriented x1 Neurology consult thank you for your recommendation Seems to be related to her undiagnosed dementia Looking back patient has had confusion since January Head CT showed no intracranial process, small old infarcts, and age related findings Brain MRI from 06/25/21 shows old infarcts (2) Dementia: Code(s): F03.90 - Unspecified dementia without behavioral disturbance Status: Acute Assessment and Plan: Seems to be undiagnosed Neurological consult Consider starting patient on dementia medications (3) Chronic kidney disease: Code(s): N18.9 - Chronic kidney disease, unspecified Status: Acute Assessment and Plan: BUN/Cr stable 38/1.30 GFR 39, Cr Cl 24 Continue to trend labs Labs in the am Avoid nephrotoxic medications (4) Elevated troponin: Code(s): R77.8 - Other specified abnormalities of plasma proteins Status: Acute Assessment and Plan: trop is elevated at 0.238, 0.260, 0.252 Trend is always elevated Probably from fluid overload, Do not think it is CAD related Continue to trend EKG shows A.Fib no ST segment elevations Cards consult thank you for your help (5) CHF (congestive heart failure): Code(s): I50.9 - Heart failure, unspecified Status: Acute Assessment and Plan: Does not appear to be short of breath BNP elevated at >22675, trend never changes Echo from January show EF of 30-35% Repeat Echo for determination of acute or chronic/systolic or diastolic dysfunction Lasix 40mg IV BID Trend labs Trend output Daily weights (6) Acute respiratory failure: Code(s): J96.00 - Acute respiratory failure, unspecified whether with hypoxia or hypercapnia Status: Acute Assessment and Plan: Blood gas shows patient is of mixed respiratory metabolic alkalosis PO2 is 56.5 Saturation 91.9 40 mg IV Lasix given 1 time in ED Trend respiratory status COVID pending Supplemental O2, wean to maintain saturation >92% Wonder if COPD is playing a role (7) Aspiration pneumonia: Code(s): J69.0 - Pneumonitis due to inhalation of food and vomit Status: Acute Assessment and Plan: Chest xray does show more right lung involvement then left Speech therapy barium swallow study-aspiration noted on all consistencies Dobbhoff ordered Tube feeding orders are also in Swabbed for covid, unlikely since she was swabbed on 06/30/21 and was negative Zosyn started Trend labs (8) PAF (paroxysmal atrial fibrillation): Code(s): I48.0 - Paroxysmal atrial fibrillation Status: Acute Assessment and Plan: Rate is controlled Chronic afib Continue carvedilol 1.56mg PO BID Tele monitor Cards consult for further recommendations (9) CAD (coronary artery disease), autologous vein bypass graft: Code(s): I25.810 - Atherosclerosis of coronary artery bypass graft(s) without angina pectoris Status: Acute Assessment and Plan: Hx of CABG Aspirin 81mg PO Daily (10) Essential hypertension: Code(s): I10 - Essential (primary) hypertension Status: Acute Assessment and Plan: BP is elevated 195/100 upon arrival currently 106/53 Continue carvedilol Trend BP Adjust therapy as needed (11) Hyperlipidemia: Code(s): E78.5 - Hyperlipidemia, unspecified Status: Acute Assessment and Plan: Continue home ezetimibe 10mg PO daily (12) Carotid stenosis, right: Code(s): I65.21 - Occlusion and stenosis of right carotid artery Status: Acute Assessment and Plan: Carotid Doppler displayed greater than 7
--- NOTE | 2021-07-03 09:40 | P.PNIM_ITS ---
Progress Note: A&P Assessment and Plan (1) Acute metabolic encephalopathy: Code(s): G93.41 - Metabolic encephalopathy Status: Acute Assessment and Plan: * Patient seems to be at baseline * Alert and oriented x1 * Neurology consult thank you for your recommendation * Seems to be related to her undiagnosed dementia * Looking back patient has had confusion since January * Head CT showed no intracranial process, small old infarcts, and age related findings * Brain MRI from 06/25/21 shows old infarcts (2) Dementia: Code(s): F03.90 - Unspecified dementia without behavioral disturbance Status: Acute Assessment and Plan: * Seems to be undiagnosed * Neurological consult * Consider starting patient on dementia medications (3) Chronic kidney disease: Code(s): N18.9 - Chronic kidney disease, unspecified Status: Acute Assessment and Plan: * BUN/Cr stable 38/1.30 * GFR 39, Cr Cl 24 * Continue to trend labs * Labs in the am * Avoid nephrotoxic medications (4) Elevated troponin: Code(s): R77.8 - Other specified abnormalities of plasma proteins Status: Acute Assessment and Plan: * trop is elevated at 0.238, 0.260, 0.252 * Trend is always elevated * Probably from fluid overload, Do not think it is CAD related * Continue to trend * EKG shows A.Fib no ST segment elevations * Cards consult thank you for your help (5) CHF (congestive heart failure): Code(s): I50.9 - Heart failure, unspecified Status: Acute Assessment and Plan: * Does not appear to be short of breath * BNP elevated at >54146, trend never changes * Echo from January show EF of 30-35% * Repeat Echo for determination of acute or chronic/systolic or diastolic dysfunction * Lasix 40mg IV BID * Trend labs * Trend output * Daily weights (6) Acute respiratory failure: Code(s): J96.00 - Acute respiratory failure, unspecified whether with hypoxia or hypercapnia Status: Acute Assessment and Plan: * Blood gas shows patient is of mixed respiratory metabolic alkalosis * PO2 is 56.5 * Saturation 91.9 * 40 mg IV Lasix given 1 time in ED * Trend respiratory status * COVID pending * Supplemental O2, wean to maintain saturation >92% * Wonder if COPD is playing a role (7) Aspiration pneumonia: Code(s): J69.0 - Pneumonitis due to inhalation of food and vomit Status: Acute Assessment and Plan: * Chest xray does show more right lung involvement then left * Speech therapy * barium swallow study-aspiration noted on all consistencies * Dobbhoff ordered * Tube feeding orders are also in * Swabbed for covid, unlikely since she was swabbed on 06/30/21 and was negative * Zosyn started * Trend labs (8) PAF (paroxysmal atrial fibrillation): Code(s): I48.0 - Paroxysmal atrial fibrillation Status: Acute Assessment and Plan: * Rate is controlled * Chronic afib * Continue carvedilol 1.56mg PO BID * Tele monitor * Cards consult for further recommendations (9) CAD (coronary artery disease), autologous vein bypass graft: Code(s): I25.810 - Atherosclerosis of coronary artery bypass graft(s) without angina pectoris Status: Acute Assessment and Plan: * Hx of CABG * Aspirin 81mg PO Daily (10) Tylor
--- NOTE | 2021-07-03 11:10 | WPDNEURCNPN ---
Assessment and Plan Additional Plan 1. Ongoing dementia 2. Atrial fibrillation with likely TIA but planned has already been discussed on her previous hospitalization 3. Chronic renal disease and 4. Underlying congestive heart failure number aspiration pneumonia as per the evaluation and being treated with the antibiotics Consult date: 07/03/21 HPI: Yessenia Vega is a 85 year old female admitted to the hospital for the complaints of change in the mental status with ongoing history of 1. Chronic renal disease 2. Congestive heart failure 3. Dementia she was sent to the emergency room from the [facility] for the complaints of change in mental status she was noted least short of breath with great tone to herself as per the initial examination by the physician though she did not complain of any chest pain or shortness of breath or abdominal pain according to the ER physician initially she was nonverbal but she is also hard of hearing chest x-ray revealed the possibility of fluid overload versus pneumonia patient was started on IV Zosyn along with the IV furosemide and the finance administrator were also consulted. She does have ongoing history of coronary artery disease with paroxysmal atrial fibrillation and peripheral vascular disease in addition to TIA in the past routine lab studies revealed her to have abnormalities on CBC. 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 Patient has already been evaluated by the finance administrator as well with the description that for acute paroxysmal atrial fibrillation she is being continued on aspirin and Plavix not anticoagulation because of frequent falls and this has been discussed with the family members during the previous hospitalization and she has also been documented to have stenosis of the right carotid artery Review of Systems Review of Systems: All systems reviewed & are unremarkable except as noted in HPI and below FORMERLY [facility], [facility] Past Medical History Medical History Arthritis Carotid artery disease Right carotid artery stenosis. Chronic kidney disease Stage 3 to 4. Baseline creatinine ranges between 1.5 and 1.80. Congestive heart failure Echocardiogram on 01/24/2021 showed a mildly enlarged left ventricular chamber with a left ventricular systolic ejection fraction of 30 to 35%, moderately increased left ventricular wall thickness, abnormal diastolic function, mildly enlarged right ventricular chamber with reduced systolic function of the right ventricle. Coronary artery disease Dementia Hyperlipidemia Hypertension Moderate pulmonary hypertension Estimated pulmonary arterial systolic pressure was 51 mmHg on echocardiogram taken 01/24/2021. Osteopenia Paroxysmal atrial fibrillation Peripheral vascular disease Transient ischemic attack Valvular heart disease Echocardiogram on 01/24/2021 showed moderate tricuspid valve regurgitation and severe mitral valve regurgitation. Surgical History Surgical History History of coronary artery bypass graft Family History Family History Mother Alzheimer disease Diabetes mellitus Heart disease Father Stomach ulcer Social History Social History Social History: The patient reports that she lives alone and she has been for 30 years. She has 2 sons and many family members nearby that come help her out at home. She used to work as a [employer]. She has a walker and wheelchair at home but it sounds as if she ambulates around the house most the time by grabbing onto furniture and she has had several falls this year. She is a former smoker and quit about 30 years ago. No alcoh
[2021-07-03] MEDS: MAGNESIUM SULF 2 GM/WATER 50ML 2 GM/50 ML BAG IVPB (13:07)
[2021-07-03] MEDS: SILVERGEL (ELTA) 45 ML 1 APPLIC TOPICAL (13:07)
--- NOTE | 2021-07-03 16:32 | PCSTNOTE ---
Please refer to the Modified Barium Swallow Evaluation in the EMR.
[2021-07-03 18:14] LABS: SARS-CoV-2 RNA PCR Negative
--- NOTE | 2021-07-03 22:08 | PC.NURSE ---
This patient, Yessenia Vega, was transferred to [facility] on 07/03/21 at 2200. Personal belongings sent with patient. Report given to Nata SANCHEZ. Appropriate documentation sent with patient.
--- NOTE | 2021-07-03 22:14 | PC.NURSE ---
Pt received from IMU. Pt confused and unable to reorient.
[2021-07-04] VITALS (10 sets, daily range): BP systolic 104–174; BP diastolic 74–96; PULSE 57–90; RESP 16–18; TEMP 35.8–36.7; O2SAT 93–97
[2021-07-04 06:00] LABS: Basophils Absolute Auto 0.1 K/mm3 (0.0-0.1); Basophils Percent Auto 0.6 % (0.2-1.2); Eosinophils Absolute Auto 0.2 K/mm3 (0-0.3); Eosinophils Percent Auto 1.8 % (0-4.4); Hematocrit 36.4 % (37.0-47.0); Hemoglobin 11.5 g/dL (12.0-15.0); Immature Granulocyte Absolute 0.08 K/mm3 (0.00-0.031); Immature Granulocyte Percent A 0.8 % (0-0.5); Lymphocytes Absolute Auto 0.84 K/mm3 (0.9-3.2); Lymphocytes Percent Auto 8.1 % (18.3-44.2); Mean Corpuscular HGB Conc 31.6 g/dl (32-36); Mean Corpuscular Hemoglobin 28.3 pg (26-34); Mean Corpuscular Volume 89.4 fl (80-100); Monocytes Percent Auto 9.5 % (2.6-8.5); Neutrophils Absolute Auto 8.2 K/mm3 (1.3-6.7); Neutrophils Percent Auto 79.2 % (45.5-73.1); Platelet Count Result 236 k/mm3 (150-375); Red Blood Count 4.07 M/mm3 (4.2-5.4); Red Cell Distribution Width 16.5 % (11.5-14.5); White Blood Count 10.3 K/mm3 (4.5-10.0)
[2021-07-04 06:28] LABS: Alanine Aminotransferase 35 U/L (4-35); Albumin Level 3.5 g/dL (3.5-5.1); Alkaline Phosphatase 79 U/L (38-126); Aspartate Amino Transferase 31 U/L (14-36); Bilirubin,Total 2.3 mg/dL (0.2-1.3); Blood Urea Nitrogen 36 mg/dL (7-17); Calcium 8.6 mg/dL (8.4-10.2); Carbon Dioxide > 40 mmol/L (22-30); Chloride 90 mmol/L (98-107); Estimated CRCL calculation 21 ml/min; Estimated Glomerular Filt Rate 36; Glucose 87 mg/dL (65-110); Magnesium 2.1 mg/dL (1.6-2.3); Potassium 2.7 mmol/L (3.4-5.0); Sodium 136 mmol/L (137-145)
--- NOTE | 2021-07-04 09:08 | PM.PNCARD ---
Progress Note: A&P Assessment and Plan (1) CHF (congestive heart failure): Qualifiers: Heart failure chronicity: unspecified Heart failure type: unspecified Qualified Code(s): I50.9 - Heart failure, unspecified Code(s): I50.9 - Heart failure, unspecified Status: Acute Assessment and Plan: Acute on chronic systolic heart failure. Received Lasix in ED. Systolic heart failure with EF 30-35%. Given her DNR status and dementia will treat her conservatively, and she and family agreeable to not obtain Life Vest or ICD. Appears to be euvolemic. Change Lasix 40 mg IV BID to Lasix 40 mg PO daily. Obtain echo. (2) Aspiration pneumonia: Code(s): J69.0 - Pneumonitis due to inhalation of food and vomit Status: Acute Assessment and Plan: On Zosyn, as per hospitalist. (3) Acute metabolic encephalopathy: Code(s): G93.41 - Metabolic encephalopathy Status: Acute Assessment and Plan: Improved. (4) Paroxysmal atrial fibrillation: Code(s): I48.0 - Paroxysmal atrial fibrillation Status: Acute Assessment and Plan: [id number] 5. Rate is controlled. On aspirin and Plavix as she has history of frequent falls, and it was previously agreed with her and her family to not be on anticoagulation for it. (5) Carotid stenosis, right: Code(s): I65.21 - Occlusion and stenosis of right carotid artery Status: Acute Assessment and Plan: She was scheduled to see her regular clinic office assistant with [facility] in [place] for CEA or stenting in February 2021. Not sure why that did not happen. (6) CAD (coronary artery disease), autologous vein bypass graft: Code(s): I25.810 - Atherosclerosis of coronary artery bypass graft(s) without angina pectoris Status: Acute (7) Hyperlipidemia: Code(s): E78.5 - Hyperlipidemia, unspecified Status: Inactive Assessment and Plan: On Atorvastatin and Zetia. (8) Hypertension: Code(s): I10 - Essential (primary) hypertension Status: Acute Assessment and Plan: Controlled. Subjective Date/time seen: 07/04/21 09:08 Denies chest pain or sob. She wants to go home. Oriented x 2, not year. Exam Const: General: cooperative, healthy appearing, comfortable and lethargic Resp: Auscultation: no crackles, no rales, no rhonchi and no wheezes Cardio: Jugular venous distension: no JVD Rate: regular rate Rhythm: abnormal rhythm Heart sounds: no murmurs GI: GI Palp: No abdominal tenderness and Yes Soft to palpation Extrem: Right lower extremity: no edema Left lower extremity: no edema Objective Data Vital Signs Vital Signs: Vital Signs - 24 hr 07/03/21 10:00 07/03/21 12:00 07/03/21 14:00 Temperature 98.6 F Pulse Rate 61 68 69 Respiratory Rate 20 Blood Pressure 107/72 Pulse Oximetry 97 07/03/21 16:00 07/03/21 18:00 07/03/21 20:00 Temperature 98.4 F 97.6 F Pulse Rate 64 64 68 Respiratory Rate 98 H 22 H Blood Pressure 129/72 113/74 Pulse Oximetry 98 94 07/03/21 22:10 07/04/21 00:00 07/04/21 04:00 Temperature 96.4 F L 97.0 F L Pulse Rate 72 70 86 Respiratory Rate 18 18 Blood Pressure 171/75 H 152/74 H Pulse Oximetry 93 94 Intake/Output Intake/Output: Intake & Output 07/01/21 07/02/21 07/03/21 07/04/21 23:59 23:59 23:59 23:59 Intake Total 50 600 100 Output Total 200 Balance -150 600 100 Meds/Results Medications: Active Medications Generic Name Dose Route Start Last Admin Trade Name Freq PRN Reason Stop Dose Admin Aspirin 81 mg 07/03/21 09:00 07/03/21 09:19 Aspirin 81 Mg Enteric Tablet BY MOUTH 81 mg DAILY [facility] Administration Atorvastatin Calcium 80 mg 07/03/21 09:00 07/03/21 09:19 Atorvastatin 40 Mg Tablet PO 80 mg DAILY [facility] Administration Carvedilol 3.125 mg 07/04/21 09:00 Carvedilol 3.125 Mg Tablet PO Q12HR [facility] Clopidogrel Bisulfate 75 mg 07/03/21 09:00 07/03
[2021-07-04] MEDS: SILVERGEL (ELTA) 45 ML 1 APPLIC TOPICAL (09:32)
--- NOTE | 2021-07-04 10:38 | PM.IMPN ---
Progress Note: A&P Assessment and Plan (1) Aspiration pneumonia: Code(s): J69.0 - Pneumonitis due to inhalation of food and vomit Status: Acute Assessment and Plan: CXR on 06/28/2021 showed bilateral pulmonary infiltrates involving the right mid both lower lung zones. Bedside swallow study performed with no dietary modifications recommended, however MBS was performed which did demonstrate silent aspiration with all consistencies. Recommendations for non oral means of nutrition. Dobbhoff tube feedings have been ordered and she is awaiting Dobbhoff placement. Remains afebrile. Continue IV Zosyn, started on 07/02/2021. Edited: Dobhoff placed around 10:00. Tube feedings will be initiated. (2) CHF (congestive heart failure): Code(s): I50.9 - Heart failure, unspecified Status: Acute Assessment and Plan: CXR on presentation showed cardiomegaly and mild congestive changes. BNP elevated at >[address]40, which is also a persistent finding on review of prior labs. Echo from January 2021 showed EF 30-35%. Repeat echo is pending. Continue Lasix 40 mg p.o. daily. Appreciate cardiology consultation. Plans for conservative management given her DNR status, no plans to obtain LifeVest or ICD and family agreeable. Continue to monitor I&O and daily weights. (3) Acute metabolic encephalopathy: Code(s): G93.41 - Metabolic encephalopathy Status: Acute Assessment and Plan: Ruled out. Mental status changes felt to be chronic related to her dementia. She is oriented to self which appears to be consistent with her baseline. 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 She has been seen in consultation by neurology who also feels alteration in mental status is due to dementia. (4) Dementia: Code(s): F03.90 - Unspecified dementia without behavioral disturbance Status: Acute Assessment and Plan: Please see above (5) Chronic kidney disease: Code(s): N18.9 - Chronic kidney disease, unspecified Status: Acute Assessment and Plan: Baseline creatinine appears fluctuant, around 1.3-1.5. Renal function. Generally consistent with her baseline at this time. Renally dose medications and avoid nephrotoxic agents. Continue to monitor renal function closely. (6) Elevated troponin: Code(s): R77.8 - Other specified abnormalities of plasma proteins Status: Acute Assessment and Plan: Initial troponin is elevated at 0.238, 0.260, 0.252. Review of prior labs demonstrate persistent elevation. May be related to volume overload. Not felt to be consistent with acute coronary syndrome. EKG reviewed without any ST segment elevations. Echo is pending. She has been seen in consultation by Cardiology. (7) Acute respiratory failure: Code(s): J96.00 - Acute respiratory failure, unspecified whether with hypoxia or hypercapnia Status: Acute Assessment and Plan: Resolved. May have been related to pneumonia vs CHF vs possible COPD, or combination. Previously requiring up to 2 L supplemental O2. She is now maintaining adequate O2 sats on room air. Continue to monitor and provide supplemental O2 as needed with goal sats 92% or above (8) PAF (paroxysmal atrial fibrillation): Code(s): I48.0 - Paroxysmal atrial fibrillation Status: Acute Assessment and Plan: Rate is controlled at this time. CHADS2-Vasc score is 5. She is a poor candidate for chronic anticoagulation given advanced age, frailty, and frequent falls. She is on aspirin and Plavix. Continue low-dose carvedilol. Will discontinue telemetry at this time. (9) Essential hypertension: Code(s): I10 - Essential (primary) hypertension Status: Acute Assessment and Plan: Blood pressure was significantly elevated on presentation but has slowly improved. Last BP 124/96. C
[2021-07-04] MEDS: FUROSEMIDE 40 MG TABLET PO (10:58)
[2021-07-04] MEDS: carvediloL 3.125 MG TABLET PO (10:58)
[2021-07-04] MEDS: LOSARTAN POTASSIUM 12.5 MG TABLET PO (10:58)
[2021-07-04] MEDS: EZETIMIBE 10 MG TABLET PO (11:01)
[2021-07-04] MEDS: ATORVASTATIN 40 MG TABLET 80 MG PO (11:02)
[2021-07-04] MEDS: POTASSIUM CHLORIDE 20 MEQ TABLET.ER PO (11:02)
[2021-07-04] MEDS: CLOPIDOGREL BISULFATE 75 MG TABLET PO (11:02)
[2021-07-04] MEDS: ASPIRIN 81 MG ENTERIC TABLET BY MOUTH (11:02)
[2021-07-04] MEDS: CYANOCOBALAMIN 1,000 MCG TABLET 1000 MCG PO (11:02)
[2021-07-04] MEDS: FERROUS SULFATE 324 MG TABLET PO (11:03)
[2021-07-04 12:14] LABS: Potassium 3.4 mmol/L (3.4-5.0)
--- NOTE | 2021-07-04 12:15 | PC.NURSE ---
Attempted to administer crushed and dissolved pills in water through Dobhoff. Was able to administer some before Dobhoff became clogged and was unable to be flushed. After attempting to unclog it charged nurse attempted to unclog it. Radiology and Sherita PIERRE were notified. Family was notified too.
[2021-07-05] VITALS (9 sets, daily range): BP systolic 101–180; BP diastolic 57–100; PULSE 50–88; RESP 16–20; TEMP 36.1–36.7; O2SAT 84–100
--- NOTE | 2021-07-05 | ECHO_ITS ---
Patient Info Name: Yessenia Vega Age: 85 years : 1935 Gender: Female Ht: 64 in Wt: 150 lbs BSA: 1.77 m2 HR: 65 bpm BP: 124 / 91 mmHg Technical Quality: Good Exam Date: 07/05/2021 11:47 AM Exam Location: [facility] Pulmonary Exam Room: 246 Patient Status: Inpatient Admit Date: 07/03/2021 Staff Ordering Physician: Zheng Cervantes Electro Plater: Nay Frias RDCS Attending Provider: Sherita Best PA-C Referring Physician: JAMMIE ELIZALDE Exam Type: CA echo doppler color flow Study Info Indications - fluid status Complete two-dimensional, color flow and Doppler transthoracic echocardiogram is performed. Summary 1. Complete two-dimensional, color flow and Doppler transthoracic echocardiogram is performed. 2. Left ventricular chamber dimension is mildly enlarged. 3. Left ventricular systolic function is moderately reduced, estimated at 30-35%. 4. There is mildly increased left ventricular wall thickness. 5. Left atrial chamber dimension is moderately enlarged. 6. Right atrial chamber dimension is moderately enlarged. 7. There is mild aortic valve sclerosis. 8. There is mild mitral valve regurgitation. 9. There is mild tricuspid valve regurgitation. 10. Moderate pulmonary hypertension, estimated pulmonary arterial systolic pressure is 50 mmHg. 11. Dilated inferior vena cava with <50% collapse upon inspiration consistent with elevated right atrial pressure, 15 mmHg. Left Ventricle Left ventricular chamber dimension is mildly enlarged. Left ventricular systolic function is moderately reduced, estimated at 30-35%. There is mildly increased left ventricular wall thickness. Left ventricular septal wall motion is normal. The left ventricular diastolic function is abnormal. Right Ventricle Right ventricular chamber dimension is normal. Right ventricular systolic function is normal. Left Atria Left atrial chamber dimension is moderately enlarged. Right Atria Right atrial chamber dimension is moderately enlarged. Atrial Septum Intact interatrial septum visualized by color flow imaging. Aortic Valve The aortic valve is trileaflet. There is mild aortic valve sclerosis. There is no aortic valve stenosis. There is no aortic valve regurgitation. Pulmonic Valve The pulmonic valve is normal. There is no pulmonic valve stenosis. There is no pulmonic regurgitation. Mitral Valve The mitral valve has normal leaflets. There is no mitral valve stenosis. There is mild mitral valve regurgitation. Tricuspid Valve The tricuspid valve leaflets are normal. There is no significant tricuspid valve stenosis. There is mild tricuspid valve regurgitation. Moderate pulmonary hypertension, estimated pulmonary arterial systolic pressure is 50 mmHg. Pericardium/Pleural The pericardium appears normal. There is no pericardial effusion. Inferior Vena Cava Dilated inferior vena cava with <50% collapse upon inspiration consistent with elevated right atrial pressure, 15 mmHg. Aorta The aortic root size at the sinus of Valsalva is normal. The prox ascending aorta size is normal. Left Ventricular Outflow Tract Name Value Normal LVOT 2D LVOT Diameter
[2021-07-05] MEDS: hydrALAZINE HCL 20 MG/ML VIAL 10 MG IV PUSH (02:31)
--- NOTE | 2021-07-05 07:47 | PM.PNCARD ---
Progress Note: A&P Assessment and Plan (1) CHF (congestive heart failure): Qualifiers: Heart failure chronicity: unspecified Heart failure type: unspecified Qualified Code(s): I50.9 - Heart failure, unspecified Code(s): I50.9 - Heart failure, unspecified Status: Acute Assessment and Plan: Acute on chronic systolic heart failure. Received Lasix in ED. Systolic heart failure with EF 30-35%. Given her DNR status and dementia will treat her conservatively, and she and family agreeable to not obtain Life Vest or ICD. Appears to be euvolemic. On Lasix 40 mg PO daily. Obtain echo. (2) Aspiration pneumonia: Code(s): J69.0 - Pneumonitis due to inhalation of food and vomit Status: Acute Assessment and Plan: On Zosyn, as per hospitalist. (3) Acute metabolic encephalopathy: Code(s): G93.41 - Metabolic encephalopathy Status: Acute Assessment and Plan: Improved, then returned. (4) Paroxysmal atrial fibrillation: Code(s): I48.0 - Paroxysmal atrial fibrillation Status: Acute Assessment and Plan: [id number] 5. Rate is controlled. On aspirin and Plavix as she has history of frequent falls, and it was previously agreed with her and her family to not be on anticoagulation for it. (5) Carotid stenosis, right: Code(s): I65.21 - Occlusion and stenosis of right carotid artery Status: Acute Assessment and Plan: She was scheduled to see her regular lithographic plate maker apprentice with [facility] in [place] for CEA or stenting in February 2021. Not sure why that did not happen. (6) CAD (coronary artery disease), autologous vein bypass graft: Code(s): I25.810 - Atherosclerosis of coronary artery bypass graft(s) without angina pectoris Status: Acute (7) Hyperlipidemia: Code(s): E78.5 - Hyperlipidemia, unspecified Status: Inactive Assessment and Plan: On Atorvastatin and Zetia. (8) Hypertension: Code(s): I10 - Essential (primary) hypertension Status: Acute Assessment and Plan: Controlled. Subjective Date/time seen: 07/05/21 07:47 Patient had issues with dobhoff tube placement yesterday. This morning she is back to her admitting mental status, appears lethargic. She opens her eyes to command but immediately closes them and not responding. Exam Const: General: lethargic Resp: Auscultation: no crackles, no rales, no rhonchi and no wheezes Cardio: Jugular venous distension: no JVD Rate: regular rate Rhythm: abnormal rhythm Heart sounds: no murmurs GI: GI Palp: No abdominal tenderness and Yes Soft to palpation Extrem: Right lower extremity: no edema Left lower extremity: no edema Objective Data Vital Signs Vital Signs: Vital Signs - 24 hr 07/04/21 08:00 07/04/21 09:32 07/04/21 10:58 Temperature 97.4 F L Pulse Rate 90 63 Respiratory Rate 16 16 Blood Pressure 124/96 H Pulse Oximetry 93 93 07/04/21 12:00 07/04/21 14:20 07/04/21 18:18 Temperature 98.1 F 97.6 F Pulse Rate 83 74 62 Respiratory Rate 16 16 Blood Pressure 159/84 H 104/78 Pulse Oximetry 95 93 07/04/21 20:00 07/04/21 21:37 07/05/21 02:00 Temperature 97.4 F L 96.9 F L Pulse Rate 84 83 Respiratory Rate 16 20 Blood Pressure 174/84 H 180/100 H Pulse Oximetry 94 97 93 07/05/21 03:09 07/05/21 06:00 Temperature 96.9 F L Pulse Rate 68 Respiratory Rate 16 Blood Pressure 153/57 H 124/91 H Pulse Oximetry 100 Intake/Output Intake/Output: Intake & Output 07/02/21 07/03/21 07/04/21 07/05/21 23:59 23:59 23:59 23:59 Intake Total 50 600 700 100 Output Total 200 200 Balance -150 600 500 100 Meds/Results Medications: Active Medications Generic Name Dose Route Start Last Admin Trade Name Freq PRN Reason Stop Dose Admin Aspirin 81 mg 07/03/21 09:00 07/04/21 11:02 Aspirin 81 Mg Enteric Tablet BY MOUTH 81 mg DAILY [facility] Administration Atorvastatin Calcium 80 m
[2021-07-05] MEDS: SILVERGEL (ELTA) 45 ML 1 APPLIC TOPICAL (08:03)
--- NOTE | 2021-07-05 08:39 | WPDGICN ---
Assessment and Plan Assessment and plan (1) Aspiration pneumonia: Code(s): J69.0 - Pneumonitis due to inhalation of food and vomit Status: Acute Assessment and Plan: Patient now with aspiration pneumonia. Has some dysarthria. She failed her modified barium swallow test. Dobbhoff tube seems appropriate but difficulties were encountered placing this yesterday. I have been asked to see her for possible PEG tube. Hopefully this can be avoided because of its invasive nature. Family is currently deciding how aggressive to be in I understand they may wish to make her DNR with hospice care. I will remain available at a distance. (2) Paroxysmal atrial fibrillation: Code(s): I48.0 - Paroxysmal atrial fibrillation Status: Acute (3) CHF (congestive heart failure): Qualifiers: Heart failure chronicity: unspecified Heart failure type: unspecified Qualified Code(s): I50.9 - Heart failure, unspecified Code(s): I50.9 - Heart failure, unspecified Status: Acute (4) Confusion: Code(s): R41.0 - Disorientation, unspecified Status: Acute Assessment and Plan: Patient with some confusion admission may have some component of underlying dementia. GI Consult Note Consult date/time: 07/05/21 08:39 HPI: Yessenia Vega is a 85 year old female I am asked to see this lady because of nutritional support. Patient admitted the hospital on 06/24/2021. Has been a group home resident. Admitted the hospital with atrial fibrillation, congestive heart failure found to have aspiration pneumonia. She appears to remain at aspiration risk by results of modified barium swallow. Dobbhoff tube was attempted to be placed yesterday but was unsuccessful. Family currently is determining code status regarding further investigation and invasive testing. The patient herself is alert. Not well oriented but comfortable at rest. Review of Systems Review of Systems: All systems reviewed & are unremarkable except as noted in HPI and below PMFSH Past Medical History Medical History Arthritis Carotid artery disease Right carotid artery stenosis. Chronic kidney disease Stage 3 to 4. Baseline creatinine ranges between 1.5 and 1.80. Congestive heart failure Echocardiogram on 01/24/2021 showed a mildly enlarged left ventricular chamber with a left ventricular systolic ejection fraction of 30 to 35%, moderately increased left ventricular wall thickness, abnormal diastolic function, mildly enlarged right ventricular chamber with reduced systolic function of the right ventricle. Coronary artery disease Dementia Hyperlipidemia Hypertension Moderate pulmonary hypertension Estimated pulmonary arterial systolic pressure was 51 mmHg on echocardiogram taken 01/24/2021. Osteopenia Paroxysmal atrial fibrillation Peripheral vascular disease Transient ischemic attack Valvular heart disease Echocardiogram on 01/24/2021 showed moderate tricuspid valve regurgitation and severe mitral valve regurgitation. Surgical History Surgical History History of coronary artery bypass graft Family History Family History Mother Alzheimer disease Diabetes mellitus Heart disease Father Stomach ulcer Social History Social History Social History: The patient reports that she lives alone and she has been for 30 years. She has 2 sons and many family members nearby that come help her out at home. 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 She has a walker and wheelchair at home but it sounds as if she ambulates around the house most the time by grabbing onto furniture and she has had several falls this year. She is a former smoker and quit about 30 years ago. No alcohol or illicit substance use. Her son Bubba Singh and essence
[2021-07-05] MEDS: DEXTROSE 5%/0.9% SOD CHL 1,000 ML 65 ML IV CONT (09:22)
[2021-07-05 10:13] LABS: Hemoglobin 12.1 g/dL (12.0-15.0); Mean Corpuscular HGB Conc 31.8 g/dl (32-36); Mean Corpuscular Volume 91.1 fl (80-100); Platelet Count Result 208 k/mm3 (150-375); Red Blood Count 4.17 M/mm3 (4.2-5.4); Red Cell Distribution Width 16.7 % (11.5-14.5); White Blood Count 8.8 K/mm3 (4.5-10.0)
[2021-07-05 10:22] LABS: Alanine Aminotransferase 31 U/L (4-35); Albumin Level 3.3 g/dL (3.5-5.1); Alkaline Phosphatase 75 U/L (38-126); Anion Gap 5 mmol/L (8-16); Aspartate Amino Transferase 30 U/L (14-36); Bilirubin Indirect 1.7 mg/dL (0-1.1); Bilirubin,Total 2.2 mg/dL (0.2-1.3); Blood Urea Nitrogen 32 mg/dL (7-17); Calcium 8.4 mg/dL (8.4-10.2); Carbon Dioxide 37 mmol/L (22-30); Chloride 93 mmol/L (98-107); Estimated CRCL calculation 27 ml/min; Estimated Glomerular Filt Rate 47; Glucose 91 mg/dL (65-110); Magnesium 1.9 mg/dL (1.6-2.3); Sodium 135 mmol/L (137-145)
--- NOTE | 2021-07-05 13:20 | PM.IMPN ---
Progress Note: A&P Assessment and Plan (1) Dysphagia: Code(s): R13.10 - Dysphagia, unspecified Status: Acute Assessment and Plan: Bedside swallow study performed with no dietary modifications recommended, however MBS was performed which did demonstrate silent aspiration with all consistencies. Recommendations for non oral means of nutrition and noted that she would be a poor candidate for speech therapy due to her dementia. She had a Dobbhoff placed yesterday, however it became clogged at first administration of medications. After discussion with patient's family, they did not wish to repeat Dobbhoff placement. Do not wish for feeding tube. Given her progressive dementia, dysphagia, and other medical comorbidities, they have requested hospice consultation. NPO at this time with IV fluid hydration. (2) Aspiration pneumonia: Code(s): J69.0 - Pneumonitis due to inhalation of food and vomit Status: Acute Assessment and Plan: CXR on 06/28/2021 showed bilateral pulmonary infiltrates involving the right mid both lower lung zones. Please see above. Remains afebrile. Continue IV Zosyn at this time, started on 07/02/2021. (3) CHF (congestive heart failure): Code(s): I50.9 - Heart failure, unspecified Status: Acute Assessment and Plan: CXR on presentation showed cardiomegaly and mild congestive changes. BNP elevated at >81999, which is also a persistent finding on review of prior labs. Echo from January 2021 showed EF 30-35%. Repeat echo completed today, awaiting interpretation. C Appreciate cardiology consultation. Plans for conservative management given her DNR status, no plans to obtain LifeVest or ICD and family agreeable, and now plans for hospice consultation. P.o. furosemide on hold. Would administer IV furosemide if any evidence of volume overload. (4) Acute metabolic encephalopathy: Code(s): G93.41 - Metabolic encephalopathy Status: Acute Assessment and Plan: Ruled out. Mental status changes felt to be chronic related to her dementia. She is oriented to self which appears to be consistent with her baseline. 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 She has been seen in consultation by neurology who also feels mental status is related to dementia. (5) Dementia: Code(s): F03.90 - Unspecified dementia without behavioral disturbance Status: Acute Assessment and Plan: Please see above (6) Chronic kidney disease: Code(s): N18.9 - Chronic kidney disease, unspecified Status: Acute Assessment and Plan: Baseline creatinine appears fluctuant, around 1.3-1.5. Labs are consistent with baseline. Renally dose medications and avoid nephrotoxic agents. Continue to monitor renal function closely. (7) Elevated troponin: Code(s): R77.8 - Other specified abnormalities of plasma proteins Status: Acute Assessment and Plan: Initial troponin elevated at 0.238, 0.260, 0.252. Review of prior labs demonstrate persistent elevation. May be related to volume overload. Not felt to be consistent with acute coronary syndrome. EKG reviewed without any ST segment elevations. Echo is pending. She has been seen in consultation by Cardiology. (8) Acute respiratory failure: Code(s): J96.00 - Acute respiratory failure, unspecified whether with hypoxia or hypercapnia Status: Acute Assessment and Plan: Resolved. May have been related to pneumonia vs CHF vs possible COPD, or combination. She has required up to 2 L supplemental O2. Noted to become hypoxic last night in the 80s. Currently requiring 1 L supplemental O2. Continue as needed with goal sats 92% or above (9) PAF (paroxysmal atrial fibrillation): Code(s): I48.0 - Paroxysmal atrial fibrillation Status: Acute Assessment and Plan: Rate is
[2021-07-06] VITALS (7 sets, daily range): BP systolic 100–160; BP diastolic 66–94; PULSE 58–94; RESP 18–21; TEMP 35.7–36.3; O2SAT 93–100
[2021-07-06] MEDS: DEXTROSE 5%/0.9% SOD CHL 1,000 ML 65 ML IV CONT ×2 (00:10→18:17)
[2021-07-06 06:27] LABS: Anion Gap 1 mmol/L (8-16); Blood Urea Nitrogen 26 mg/dL (7-17); Calcium 8.3 mg/dL (8.4-10.2); Carbon Dioxide 35 mmol/L (22-30); Chloride 98 mmol/L (98-107); Estimated CRCL calculation 25 ml/min; Estimated Glomerular Filt Rate 43; Glucose 141 mg/dL (65-110); Potassium 3.2 mmol/L (3.4-5.0); Sodium 134 mmol/L (137-145)
[2021-07-06] MEDS: KCL 20 MEQ/SW 100 ML 100 ML 50 MEQ IVPB (08:18)
[2021-07-06] MEDS: SILVERGEL (ELTA) 45 ML 1 APPLIC TOPICAL (08:18)
--- NOTE | 2021-07-06 11:29 | PM.IMPN ---
Progress Note: A&P Assessment and Plan (1) Dysphagia: Code(s): R13.10 - Dysphagia, unspecified Status: Acute Assessment and Plan: Bedside swallow study performed with no dietary modifications recommended, however MBS was performed which did demonstrate silent aspiration with all consistencies. Recommendations for non oral means of nutrition and noted that she would be a poor candidate for speech therapy due to her dementia. She had a Dobbhoff placed yesterday, however it became clogged at first administration of medications. After discussion with patient's family, they did not wish to repeat Dobbhoff placement. Do not wish for feeding tube. Given her progressive dementia, dysphagia, and other medical comorbidities, they have requested hospice consultation. NPO at this time with IV fluid hydration. Patients family signed consent with [facility]. Awaiting further information regarding home hospice vs NH. Discussed with patients Charlotte BARRON. She would like to allow comfort feedings. Understands risk for aspiration/infection. Will proceed with minced and moist diet with mildly thick liquids and aspiration precautions implemented. (2) Aspiration pneumonia: Code(s): J69.0 - Pneumonitis due to inhalation of food and vomit Status: Acute Assessment and Plan: CXR on 06/28/2021 showed bilateral pulmonary infiltrates involving the right mid both lower lung zones. Please see above. Remains afebrile. Continue IV Zosyn at this time, started on 07/02/2021. She is requiring 2L supplemental O2. O2 sats 93%and above. (3) CHF (congestive heart failure): Code(s): I50.9 - Heart failure, unspecified Status: Acute Assessment and Plan: CXR on presentation showed cardiomegaly and mild congestive changes. BNP elevated at >72624, which is also a persistent finding on review of prior labs. Echo from January 2021 showed EF 30-35%. Repeat echo 07/05 showed EF 30-35%. Appreciate cardiology consultation. Plans for conservative management given her DNR status, no plans to obtain LifeVest or ICD and family agreeable, and now plans for hospice. P.o. furosemide on hold. Would administer IV furosemide if any evidence of volume overload. (4) Acute metabolic encephalopathy: Code(s): G93.41 - Metabolic encephalopathy Status: Acute Assessment and Plan: Ruled out. Mental status changes felt to be chronic related to her dementia. She is oriented to self which appears to be consistent with her baseline. 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 She has been seen in consultation by neurology who also feels mental status is related to dementia. (5) Dementia: Code(s): F03.90 - Unspecified dementia without behavioral disturbance Status: Acute Assessment and Plan: Please see above (6) Chronic kidney disease: Code(s): N18.9 - Chronic kidney disease, unspecified Status: Acute Assessment and Plan: Baseline creatinine appears fluctuant, around 1.3-1.5. Labs are consistent with baseline. Renally dose medications and avoid nephrotoxic agents. Continue to monitor renal function closely. (7) Elevated troponin: Code(s): R77.8 - Other specified abnormalities of plasma proteins Status: Acute Assessment and Plan: Initial troponin elevated at 0.238, 0.260, 0.252. Review of prior labs demonstrate persistent elevation. May be related to volume overload. Not felt to be consistent with acute coronary syndrome. EKG reviewed without any ST segment elevations. She has been seen in consultation by Cardiology. (8) Acute respiratory failure: Code(s): J96.00 - Acute respiratory failure, unspecified whether with hypoxia or hypercapnia Status: Acute Assessment and Plan: Likely related to pneumonia and/or CHF. She currently requires 2 L supplemental O
[2021-07-07 02:00] VITALS: BP 101/61; PULSE 63; RESP 21; TEMP 36.2; O2SAT 100
[2021-07-07 05:44] LABS: Anion Gap 5 mmol/L (8-16); Blood Urea Nitrogen 23 mg/dL (7-17); Calcium 8.1 mg/dL (8.4-10.2); Carbon Dioxide 35 mmol/L (22-30); Chloride 103 mmol/L (98-107); Estimated CRCL calculation 27 ml/min; Estimated Glomerular Filt Rate 47; Glucose 133 mg/dL (65-110); Potassium 3.2 mmol/L (3.4-5.0); Sodium 143 mmol/L (137-145)
[2021-07-07 06:00] VITALS: BP 94/55; PULSE 80; RESP 21; TEMP 36.1; O2SAT 100
[2021-07-07] MEDS: KCL 20 MEQ/SW 100 ML 100 ML 50 MEQ IVPB (08:22)
[2021-07-07] MEDS: SILVERGEL (ELTA) 45 ML 1 APPLIC TOPICAL (08:25)
[2021-07-07 08:30] VITALS: O2SAT 95
--- NOTE | 2021-07-07 14:44 | PM.IMPN ---
Progress Note: A&P Assessment and Plan (1) Dysphagia: Code(s): R13.10 - Dysphagia, unspecified Status: Acute Assessment and Plan: Bedside swallow study performed with no dietary modifications recommended, however MBS was performed which did demonstrate silent aspiration with all consistencies. Recommendations for non oral means of nutrition and noted that she would be a poor candidate for speech therapy due to her dementia. She had a Dobbhoff placed 07/04, however it became clogged at first administration of medications. After discussion with patient's family, they did not wish to repeat Dobbhoff placement. Did not wish for feeding tube. Given her progressive dementia, dysphagia, and other medical comorbidities, they requested hospice consultation. Patients family signed consent with [facility] hospice 07/06. Discussed with patients Charlotte BARRON. She would like to allow comfort feedings. Understands risk for aspiration/infection. Will proceed with minced and moist diet with mildly thick liquids and aspiration precautions implemented. Plan for discharge tomorrow afternoon to patients home. [facility] to have equipment delivered. (2) Aspiration pneumonia: Code(s): J69.0 - Pneumonitis due to inhalation of food and vomit Status: Acute Assessment and Plan: CXR on 06/28/2021 showed bilateral pulmonary infiltrates involving the right mid both lower lung zones. Please see above. Remains afebrile. Continue IV Zosyn at this time, started on 07/02/2021. She is requiring 2L supplemental O2. O2 sats 93%and above. (3) CHF (congestive heart failure): Code(s): I50.9 - Heart failure, unspecified Status: Acute Assessment and Plan: CXR on presentation showed cardiomegaly and mild congestive changes. BNP elevated at >15865, which is also a persistent finding on review of prior labs. Echo from January 2021 showed EF 30-35%. Repeat echo 07/05 showed EF 30-35%. Appreciate cardiology consultation. Plans for conservative management given her DNR status, no plans to obtain LifeVest or ICD and family agreeable, and now plans for hospice. P.o. furosemide on hold. Would administer IV furosemide if any evidence of volume overload. (4) Acute metabolic encephalopathy: Code(s): G93.41 - Metabolic encephalopathy Status: Acute Assessment and Plan: Ruled out. Mental status changes felt to be chronic related to her dementia. She is oriented to self which appears to be consistent with her baseline. 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 She has been seen in consultation by neurology who also feels mental status is related to dementia. (5) Dementia: Code(s): F03.90 - Unspecified dementia without behavioral disturbance Status: Acute Assessment and Plan: Please see above (6) Chronic kidney disease: Code(s): N18.9 - Chronic kidney disease, unspecified Status: Acute Assessment and Plan: Baseline creatinine appears fluctuant, around 1.3-1.5. Labs are consistent with baseline. Renally dose medications and avoid nephrotoxic agents. Continue to monitor renal function closely. (7) Elevated troponin: Code(s): R77.8 - Other specified abnormalities of plasma proteins Status: Acute Assessment and Plan: Initial troponin elevated at 0.238, 0.260, 0.252. Review of prior labs demonstrate persistent elevation. May be related to volume overload. Not felt to be consistent with acute coronary syndrome. EKG reviewed without any ST segment elevations. She was seen in consultation by Cardiology. (8) Acute respiratory failure: Code(s): J96.00 - Acute respiratory failure, unspecified whether with hypoxia or hypercapnia Status: Acute Assessment and Plan: Likely related to pneumonia and/or CHF. She currently requires 2 L supplemental O2. Continue as n
[2021-07-07 17:15] VITALS: BP 145/67; PULSE 73; RESP 16; TEMP 36.3; O2SAT 100
[2021-07-07 20:00] VITALS: O2SAT 100
[2021-07-07 22:00] VITALS: BP 151/87; PULSE 73; RESP 21; TEMP 36.1; O2SAT 100
[2021-07-08 02:00] VITALS: BP 146/74; PULSE 64; RESP 21; TEMP 36.3; O2SAT 100
[2021-07-08 06:00] VITALS: BP 165/79; PULSE 72; RESP 21; TEMP 36.5; O2SAT 100
[2021-07-08 06:19] LABS: Anion Gap 4 mmol/L (8-16); Blood Urea Nitrogen 23 mg/dL (7-17); Calcium 8.4 mg/dL (8.4-10.2); Carbon Dioxide 32 mmol/L (22-30); Chloride 101 mmol/L (98-107); Estimated CRCL calculation 26 ml/min; Estimated Glomerular Filt Rate 47; Glucose 132 mg/dL (65-110); Potassium 3.7 mmol/L (3.4-5.0); Sodium 137 mmol/L (137-145)
[2021-07-08 08:00] VITALS: O2SAT 96
[2021-07-08] MEDS: SILVERGEL (ELTA) 45 ML 1 APPLIC TOPICAL (08:12)
--- NOTE | 2021-07-08 13:02 | PCDIET ---
Patient to be discharged on hospice today. Patient had MBS on 07/03- recommending non oral feedings. Unable to use Dobbhoff tube, meds clogged and become unusable. Family agreed for pleasure feedings of Minced and Moist, Level 5 diet. Oral intake 0-5% of meals. No further nutritional interventions needed at this time.
--- NOTE | 2021-07-08 13:34 | PM.DS ---
DS: Admitting Diagnosis Discharge Date 07/08/2021 Admitting Diagnosis Aspiration pneumonia DS: Discharge Diagnosis Discharge Diagnosis (1) Dysphagia: Code(s): R13.10 - Dysphagia, unspecified Status: Acute Assessment and Plan: Bedside swallow study performed at last admission 06/26/21 with no dietary modifications recommended, however MBS was performed which did demonstrate silent aspiration with all consistencies. Recommendations for non oral means of nutrition and noted that she would be a poor candidate for speech therapy due to her dementia. She had a Dobbhoff placed 07/04, however it became clogged at first administration of medications. After discussion with patient's family, they did not wish to repeat Dobbhoff placement. Did not wish for feeding tube. Given her progressive dementia, dysphagia, and other medical comorbidities, they requested hospice consultation. Patients family signed consent with [facility] 07/06. Discussed with patients BEATRICE Charlotte. She would like to allow comfort feedings. Understands risk for aspiration/infection. Started on minced and moist diet with mildly thick liquids and aspiration precautions were implemented. Patient was discharged with home hospice. (2) Aspiration pneumonia: Code(s): J69.0 - Pneumonitis due to inhalation of food and vomit Status: Acute Assessment and Plan: CXR on 06/28/2021 showed bilateral pulmonary infiltrates involving the right mid both lower lung zones. Please see above. Remained afebrile. Completed a course of IV Zosyn. She required 2L supplemental O2. (3) CHF (congestive heart failure): Code(s): I50.9 - Heart failure, unspecified Status: Acute Assessment and Plan: CXR on presentation showed cardiomegaly and mild congestive changes. BNP elevated at >91594, which is also a persistent finding on review of prior labs. Echo from January 2021 showed EF 30-35%. Repeat echo 07/05 also showed EF 30-35%. She was seen in consultation by Cardiology. Family opted for conservative management given her DNR status, no plans to obtain LifeVest or ICD and family agreeable. Ultimately decided on hospice. (4) Acute metabolic encephalopathy: Code(s): G93.41 - Metabolic encephalopathy Status: Acute Assessment and Plan: Ruled out. Mental status changes felt to be chronic related to her dementia. She is oriented to self which appears to be consistent with her baseline. 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 She was seen in consultation by neurology who also felt mental status was related to dementia. (5) Dementia: Code(s): F03.90 - Unspecified dementia without behavioral disturbance Status: Acute Assessment and Plan: Please see above (6) Chronic kidney disease: Code(s): N18.9 - Chronic kidney disease, unspecified Status: Acute Assessment and Plan: Baseline creatinine appears fluctuant, around 1.3-1.5. Labs were consistent with baseline. Renally dose medications and avoid nephrotoxic agents. Continue to monitor renal function closely. (7) Elevated troponin: Code(s): R77.8 - Other specified abnormalities of plasma proteins Status: Acute Assessment and Plan: Initial troponin elevated at 0.238, 0.260, 0.252. Review of prior labs demonstrate persistent elevation. May be related to volume overload. Not felt to be consistent with acute coronary syndrome. EKG reviewed without any ST segment elevations. She was seen in consultation by Cardiology. (8) Acute respiratory failure: Code(s): J96.00 - Acute respiratory failure, unspecified whether with hypoxia or hypercapnia Status: Acute Assessment and Plan: Likely related to pneumonia and/or CHF. She required 2 L supplemental O2. O2 to be continued as needed at home per hospice. (9) PAF (paro
--- NOTE | 2021-07-08 15:59 | PCOTNOTE ---
On 07/08/21, the student, [Yisel DURAND], provided care and completed [facility] documentation on this patient. I have reviewed the student's documentation and agree with the findings.
== END 2021-07-08 17:39 | disposition hospice, home (50) | DRG 177 ==
LOC: ANHED 16:58 → ANHIMU 18:02 → ANH2MED 07-04 06:21 → ANHIMU 07-10 12:03
PROVIDERS: Internal Medicine; Nurse Practitioner; Admitting Provider Internal Medicine; Emergency Provider Emergency Medicine; PCP Internal Medicine; Visit Provider Physician Assistant
DX: J69.0 Pneumonitis due to inhalation of food and vomit (principal); J96.00 Acute respiratory failure, unspecified whether with hypoxia or hypercapnia; I50.23 Acute on chronic systolic (congestive) heart failure; I13.0 Hypertensive heart and chronic kidney disease with heart failure and stage 1 through stage 4 chronic kidney disease, or unspecified chronic kidney disease; N18.4 Chronic kidney disease, stage 4 (severe); K94.23 Gastrostomy malfunction; F03.90 Unspecified dementia, unspecified severity, without behavioral disturbance, psychotic disturbance, mood disturbance, and anxiety; Z20.822 Contact with and (suspected) exposure to COVID-19; R13.10 Dysphagia, unspecified; M19.90 Unspecified osteoarthritis, unspecified site; I48.0 Paroxysmal atrial fibrillation; I65.21 Occlusion and stenosis of right carotid artery; E87.6 Hypokalemia; T50.2X5A Adverse effect of carbonic-anhydrase inhibitors, benzothiadiazides and other diuretics, initial encounter; I25.10 Atherosclerotic heart disease of native coronary artery without angina pectoris; I73.9 Peripheral vascular disease, unspecified; E78.5 Hyperlipidemia, unspecified; M85.80 Other specified disorders of bone density and structure, unspecified site; Z86.73 Personal history of transient ischemic attack (TIA), and cerebral infarction without residual deficits; Z66 Do not resuscitate; Z95.1 Presence of aortocoronary bypass graft; Z87.891 Personal history of nicotine dependence; Z91.81 History of falling; Z79.02 Long term (current) use of antithrombotics/antiplatelets; Z79.82 Long term (current) use of aspirin
CPT/HCPCS: 36415; 36600; 43752; 51701; 70450; 71045; 80048; 80053; 81001; 82805; 83605; 83735; 83880; 84132; 84484; 85025; 85027; 85610; 85730; 92611; 93005; 93306; 93880; 96361; 96365; 96366; 96375; 96376; 97116; 97161; 97165; 97530; 97535; 99284; 99285; A9270; C9803; G0378; J0360; J1940; J2543; J3475; J3480; J7042; J7060; J7120; U0003; U0005